=== PATIENT | female | born 1980 | race Caucasian/White ===

== ENCOUNTER 2020-08-21 20:02 | Emergency (ER) | payer MEDICAID, SELFPAY ==
--- NOTE | ~2020-08-21 | CT_ITS ---
EXAMINATION: CT ABDOMEN AND PELVIS WITH CONTRAST CLINICAL INFORMATION: Abdominal pain. Elevated liver enzymes. COMPARISON: None TECHNIQUE: Multidetector volumetric images were obtained from the superior aspect of the liver through the pubic symphysis following administration 85 mL of Omnipaque 350 intravenous contrast. Sagittal and coronal reformatted images were obtained on the technologist's workstation. Oral contrast: No This CT examination was performed using dose optimization techniques as appropriate, variously including the following: *Automated exposure control *Adjustment of mA and/or kV according to patient size (this includes techniques or standardized protocols for targeted exams where dose is matched to indication/reason for exam; i.e. extremities or head) *Use of iterative reconstruction technique DLP: 467 mGy-cm FINDINGS: LUNG BASES: The visualized lung bases are unremarkable. LIVER, GALLBLADDER, AND BILIARY TREE: The liver is normal in size, shape, and attenuation. No focal hepatic lesion or biliary ductal dilatation is present. Multiple small calcified gallstones are present in the gallbladder at the fundus. Focal wall thickening at the fundus may be due to hyperplastic cholecystosis. No surrounding fat stranding. No common bile duct dilatation. PANCREAS: Unremarkable. SPLEEN: Unremarkable. ADRENAL GLANDS: Unremarkable. KIDNEYS AND URETERS: Multiple bilateral renal calculi are noted. The largest of these is a permanent or calculus in a lower calyx in the right lower renal pole with a density of 1075 Hounsfield units, situated 8 cm deep to skin surface at the right posterior mid axillary line. Smaller calculi in the right kidney measure 4 and 2 mm in diameter. The largest calculus in the left kidney is situated in the upper pole calyx, measures 4 mm in diameter and is located 5.5 cm deep to the skin surface of the left posterior mid axillary line. A 2 mm calculus is present within the lower pole calyx. There is a 1 cm water density (12 Hounsfield unit) cyst within the lower pole the left kidney. A smaller 8 mm cyst in the lower pole is too small to characterize, though likely Bosniak type I cyst. No suspicious renal lesions. Kidneys normal in size, contour, and cortical thickness with symmetric enhancement. No hydronephrosis. No ureteral calculi. BLADDER: There is generalized bladder wall thickening measuring up to 8 mm in diameter. No surrounding soft tissue fat stranding. Bladder is partially filled. GASTROINTESTINAL TRACT: Stomach, small bowel, and colon are normal in caliber. No bowel wall thickening or surrounding inflammatory changes. Appendix is normal. No intraperitoneal free fluid or free air. ABDOMINAL WALL: Tiny fat-containing umbilical hernia. No bowel involvement. LYMPH NODES: Normal. VASCULAR: Unremarkable. PELVIC VISCERA: Uterus is normal in size. No adnexal lesions. OSSEOUS STRUCTURES: No acute fracture or malalignment. No acute osseous lesion. CT/CT abdomen pelvis w con IMPRESSION: 1. Cholelithiasis. Focal wall thickening at the fundus of the gallbladder may be due to hyperplastic cholecystosis. No significant surrounding fat stranding to indicate acute cholecystitis. Consider correlation with abdominal ultrasound if there is a high clinical concern for cholecystitis. 2. Bilateral nonobstructing nephrolithiasis. No evidence of obstructive uropathy. 3. Nonspecific bladder wall thickening may be due to infectious or inflammatory cystitis. Recommend correlation with urinalysis. 4. Two small Bosniak type I renal cysts. No follow-up is necessary.
[2020-08-21 20:05] VITALS: BP 160/100; PULSE 98; RESP 16; TEMP 36.8; O2SAT 100; BMI 27.3
--- NOTE | 2020-08-21 20:34 | ED_ITS ---
HPI - Abdominal Pain General Chief Complaint: Abdominal Pain <KETTY Huff - Last Filed: 08/21/20 21:09> Stated Complaint: Abdominal pain/back pain <KETTY Huff - Last Filed: 08/21/20 21:09> Time Seen by Provider: 08/21/20 20:20 <KETTY Huff - Last Filed: 08/21/20 21:09> Source: patient <KETTY Huff - Last Filed: 08/21/20 21:09> Mode of arrival: ambulatory <KETTY Huff - Last Filed: 08/21/20 21:09> Limitations: no limitations <KETTY Huff Last Filed: 08/21/20 21:09> History of Present Illness HPI narrative: 39 y/o female with no medical history presents to the ED with acute onset of 8/10 squeezing, sharp epigastric pain that radiates to her back that started at 5pm today. She states she had similar episodes of this type of pain last month, went to [facility] ER and the wait was so long she ended up leaving. Pain at that time was after she ate a clarke cheeseburger. Today the pain started while she was sitting down and she had not eaten anything prior. She denies associated nausea, vomiting, diarrhea, constipation, dysuria, hematuria, chest pain, SOB or fever. <KETTY Huff - Last Filed: 08/21/20 21:09> MD elicited complaint: abdominal pain <KETTY Huff - Last Filed: 08/21/20 21:09> Onset (ago): hour(s) (4) <KETTY Huff - Last Filed: 08/21/20 21:09> Pain Consistency: constant <KETTY Huff Last Filed: 08/21/20 21:09> Location: epigastric <KETTY Huff Last Filed: 08/21/20 21:09> Severity: severe <KETTY Huff Last Filed: 08/21/20 21:09> Pain scale (0-10): 8 <KETTY Huff Last Filed: 08/21/20 21:09> Quality: sharp and other (squeezing) <KETTY Huff Last Filed: 08/21/20 21:09> Radiation: back <KETTY Huff Last Filed: 08/21/20 21:09> Exacerbating factors: nothing <KETTY Huff Last Filed: 08/21/20 21:09> Relieving factors: nothing <KETTY Huff Last Filed: 08/21/20 21:09> Context: history of similar episodes <KETTY Huff Last Filed: 08/21/20 21:09> Associated symptoms: denies other symptoms <KETTY Huff Last Filed: 08/21/20 21:09> Related Data Allergies/Adverse Reactions: Allergies Allergy/AdvReac Type Severity Reaction Status Date / Time Penicillins [PENICILLINS] Allergy Unknown UNKNOWN Unverified 08/21/20 20:11 <KETTY Huff Last Filed: 08/21/20 21:09> Review of Systems Review of Systems Constitutional: No Fever, No Chills ENT/Mouth: No sore throat, No Swallowing Difficulty Cardiovascular: No Chest Pain, No SOB, No Orthopnea, No Edema Respiratory: No Cough, No Sputum, No Wheezing, No dyspnea Gastrointestinal: No Nausea, No Vomiting, No Diarrhea, + abdominal Pain Genitourinary: No Dysuria, No Urinary Frequency, No Hematuria Musculoskeletal: No joint pain, No Myalgias Skin: No Skin Lesions, No rash Neuro: No Weakness, No Numbness, No Dizziness, No Headache Psych: No Anxiety/Panic, No Depression Heme/Lymph: No Bruising, No Lymphadenopathy Endocrine: No Polyuria, No Polydipsia <KETTY Huff Last Filed: 08/21/20 21:09> Physical Exam Vital Signs: Vital Signs: Last Vital Signs Temp 98.3 F 08/21/20 20:05 Pulse 98 08/21/20 20:05 Resp 16 08/21/20 20:05 BP 160/100 H 08/21/20 20:05 Pulse Ox 100 08/21/20 20:05 Body Mass Index 27.3 Appearance: Alert. Oriented X3. Pacing in the room, appears uncomfortable. Eyes: Pupils equal, round and reactive to light. ENT: Pharynx normal. Neck: Normal inspection. Neck supple. CVS: Normal heart rate and rhythm. Pulses normal. Respiratory: No respiratory distress. Breath sounds normal. Abdomen: flat, soft, +epigastric tenderness, RUQ tenderness w/ guarding. +BS x4. bilateral CVA tenderness Skin: Skin warm and dry. Normal skin color. Normal skin turgor. No rashes. Extremities: No lower extremity edema. Neuro: Oriented X 3. No motor deficit. No sensory deficit. Steady gait. Speaks in full sentences. <KETTY Huff - Last Filed: 08/21/20 21:09> Vital Signs: Last Vital Signs Temp 98.3 F 08/21/20 20:05 Pulse 98 08/21/20 20:05 Resp 16 08/21/20 20:05 BP 160/100 H 08/21/20 20:05 Pulse Ox 100 08/21/20 20:05 Body Mass Index 27.3 <Candelaria Reich [employer]ING [employer]ER-[employer] - Last Filed: 08/21/20 23:48> Course Course Course Narrative: 39 y/o female with no significant medical history presenting with acute onset of epigastric pain that radiates to her back. She appears uncomfortable. BP elevated on arrival 160/100. Could be due to pain. Concern for possible saenz creatitis vs biliary colic vs cholecystits. Denies burning sensation, doubt GERD or gastritis. She has CVA tenderness but no urinary symptoms, doubt kidney stones or pyelonephritis. She is a smoker but does not have any other risk factors for aortic dissection. She has equal femoral pulses. Will start with lab workup, including LFTs, lipase, CBC and chemistry. Based on results will decide whether to CT vs RUQ/US. IV morphine and IVF ordered. Will reassess. Signed out to Esthela SANTOS who will assume care. Labs needed to be redrawn due to hemolysis. <KETTY Huff - Last Filed: 08/21/20 21:09> Patient re-examined by me at the bedside. She denies any pain or discomfort at this time. Patient reports to me that she had alcoholic beverages last night. CT scan back and shows cholelithiasis. Focal wall thickening at the fundus of the gallbladder may be due to hyperplastic cholecystolithiasis. No significant surrounding fat stranding to indicate acute cholecystitis. Recommendation by radiology is to consider correlation with abdominal ultrasound. Bilateral nonobstructing nephrolithiasis. No evidence of obstr uctive uropathy. Nonspecific bladder wall thickening may be due to infectious or inflammatory cystitis. Two small Bosniak type 1 renal cyst. Urinalysis shows trace blood with trace leukocytes, negative for nitrates. Patient might have gastritis aggravated by food or alcohol intake. Pain possible to biliary colic. I will have patient follow-up with her PCP. Sent her home with PPI. Patient should follow-up with GI to investigate further her elevated liver enzymes. <Candelaria Reich, [employer]ER[employer] - Last Filed: 08/21/20 23:48> MDM - Abdominal Pain MDM Narrative Medical decision making narrative: FINDINGS: LUNG BASES: The visualized lung bases are unremarkable. LIVER, GALLBLADDER, AND BILIARY TREE: The liver is normal in size, shape, and attenuation. No focal hepatic lesion or biliary ductal dilatation is present. Multiple small calcified gallstones are present in the gallbladder at the fundus. Focal wall thickening at the fundus may be due to hyperplastic cholecystosis. No surrounding fat stranding. No common bile duct dilatation. PANCREAS: Unremarkable. SPLEEN: Unremarkable. ADRENAL GLANDS: Unremarkable. KIDNEYS AND URETERS: Multiple bilateral renal calculi are noted. The largest of these is a permanent or calculus in a lower calyx in the right lower renal pole with a density of 1075 Hounsfield units, situated 8 cm deep to skin surface at the right posterior mid axillary line. Smaller calculi in the right kidney measure 4 and 2 mm in diameter. The largest calculus in the left kidney is situated in the upper pole calyx, measures 4 mm in diameter and is located 5.5 cm deep to the skin surface of the left posterior mid axillary line. A 2 mm calculus is present within the lower pole calyx. There is a 1 cm water density (12 Hounsfield unit) cyst within the lower pole the left kidney. A smaller 8 mm cyst in the lower pole is too small to characterize, though likely Bosniak type I cyst. No suspicious renal lesions. Kidneys normal in size, contour, and cortical thickness with symmetric enhancement. No hydronephrosis. No ureteral calculi. BLADDER: There is generalized bladder wall thickening measuring up to 8 mm in diameter. No surrounding soft tissue fat stranding. Bladder is partially filled. GASTROINTESTINAL TRACT: Stomach, small bowel, and colon are normal in caliber. No bowel wall thickening or surrounding inflammatory changes. Appendix is normal. No intraperitoneal free fluid or free air. ABDOMINAL WALL: Tiny fat-containing umbilical hernia. No bowel involvement. LYMPH NODES: Normal. VASCULAR: Unremarkable. PELVIC VISCERA: Uterus is normal in size. No adnexal lesions. OSSEOUS STRUCTURES: No acute fracture or malalignment. No acute osseous lesion. CT/CT abdomen pelvis w con <MAYANK Zhou - Last Filed: 08/21/20 23:48> Lab Data Result diagrams: : 08/21/20 20:31 08/21/20 21:19 <KETTY Huff - Last Filed: 08/21/20 21:09> Labs: Lab Results 08/21/20 08/21/20 08/21/20 Range/Units 20:31 20:31 21:19 WBC 13.3 H (4.8-10.8) X10*3/uL RBC 4.84 (4.20-5.50) X10*6/uL Hgb 15.1 (12.0-16.0) g/dl Hct 44.2 (37-47) % MCV 91.3 (80-98) fL MCH 31.2 (27.0-33.0) pg MCHC 34.2 (31.0-35.0) g/dl RDW 12.2 (11.0-16.0) % Plt Count 271 (160-400) X10*3/uL MPV 9.0 L (9.4-12.3) fL Immature Gran % (Auto) 0.5 H (0.0-0.4) % Neut % (Auto) 74.8 H (45-73) % Lymph % (Auto) 18.5 L (20-40) % Cla[place]orne % (Auto) 5.1 (2-11) % Eos % (Auto) 0.7 (0-4) % Baso % (Auto) 0.4 (0-2) % Lymph # (Auto) 2.5 (1.2-4.9) X10*3/uL [place]orne # (Auto) 0.7 (0.1-1.2) X10*3/uL Eos # (Auto) 0.1 (0.0-0.4) X10*3/uL Baso # (Auto) 0.1 (0.0-0.2) X10*3/uL Abs Immat Gran (auto) 0.06 H (0.00-0.03) X10*3/uL Absolute Neuts (auto) 9.9 H (2.0-8.3) X10*3/uL Absolute Nucleated RBC 0.000 (0.0-0.012) X10*3/uL Nucleated RBC % (auto) 0.0 (0.0-0.2) /100WBC Hold Blue Top SEE NOTE Sodium (135-145) mmol/L Potassium (3.3-5.1) mmol/L Chloride (96-108) mmol/L Carbon Dioxide (22-29) mmol/L Anion Gap (12-20) BUN (9-16) mg/dL Creatinine (0.5-1.4) mg/dL Estim Creat Clear Calc Estimated GFR Random Glucose (60-115) mg/dL Calcium (8.4-10.2) mg/dL Magnesium (1.6-2.6) mg/dL Total Bilirubin (0.0-1.0) mg/dL Direct Bilirubin (0.0-0.5) mg/dL AST (5-31) U/L ALT (0-31) U/L Alkaline Phosphatase (39-117) U/L Total Protein (6.5-8.0) g/dL Albumin (3.5-5.0) g/dL Lipase (8-78) U/L Urine Color YELLOW Urine Appearance HAZY Urine pH 6.5 (5.0-8.0) Ur Specific Dawson 1.020 (1.005-1.025) Urine Protein NEG (NEG-TRACE) MG/DL Urine Glucose (UA) NEG (NEG) MG/DL Urine Ketones NEG (NEG) MG/DL Urine Blood 1+ H (NEG) Urine Nitrite NEG (NEG) Ur Leukocyte Esterase TRACE H (NEG) Urine RBC 1-4 (0) /HPF Urine WBC 5-9 H (0-4) /HPF Ur Squamous Epith Cells TRACE /LPF Amorphous Sediment TRACE /LPF Urine Bacteria TRACE /LPF Granular Casts 0-2 /LPF Urine Mucus TRACE /LPF Ur Oval Fat Bodies NOTED (NONE) Urine Test (NEGATIVE) 08/21/20 08/21/20 Range/Units 21:19 21:19 WBC (4.8-10.8) X10*3/uL RBC (4.20-5.50) X10*6/uL Hgb (12.0-16.0) g/dl Hct (37-47) % MCV (80-98) fL MCH (27.0-33.0) pg MCHC (31.0-35.0) g/dl RDW (11.0-16.0) % Plt Count (160-400) X10*3/uL MPV (9.4-12.3) fL Immature Gran % (Auto) (0.0-0.4) % Neut % (Auto) (45-73) % Lymph % (Auto) (20-40) % Claiborne % (Auto) (2-11) % Eos % (Auto) (0-4) % Baso % (Auto) (0-2) % Lymph # (Auto) (1.2-4.9) X10*3/uL Claiborne # (Auto) (0.1-1.2) X10*3/uL Eos # (Auto) (0.0-0.4) X10*3/uL Baso # (Auto) (0.0-0.2) X10*3/uL Abs Immat Gran (auto) (0.00-0.03) X10*3/uL Absolute Neuts (auto) (2.0-8.3) X10*3/uL Absolute Nucleated RBC (0.0-0.012) X10*3/uL Nucleated RBC % (auto) (0.0-0.2) /100WBC Hold Blue Top Sodium 138 (135-145) mmol/L Potassium 3.5 (3.3-5.1) mmol/L Chloride 103 (96-108) mmol/L Carbon Dioxide 26 (22-29) mmol/L Anion Gap 13 (12-20) BUN 14 (9-16) mg/dL Creatinine 0.79 (0.5-1.4) mg/dL Estim Creat Clear Calc 88.7 Estimated GFR > 60 Random Glucose 131 H (60-115) mg/dL Calcium 9.0 (8.4-10.2) mg/dL Magnesium 1.9 (1.6-2.6) mg/dL Total Bilirubin 0.6 (0.0-1.0) mg/dL Direct Bilirubin 0.4 (0.0-0.5) mg/dL AST 138 H (5-31) U/L ALT 71 H (0-31) U/L Alkaline Phosphatase 93 (39-117) U/L Total Protein 7.2 (6.5-8.0) g/dL Albumin 4.2 (3.5-5.0) g/dL Lipase 10 (8-78) U/L Urine Color Urine Appearance Urine pH (5.0-8.0) Ur Specific Dawson (1.005-1.025) Urine Protein (NEG-TRACE) MG/DL Urine Glucose (UA) (NEG) MG/DL Urine Ketones (NEG) MG/DL Urine Blood (NEG) Urine Nitrite (NEG) Ur Leukocyte Esterase (NEG) Urine RBC (0) /HPF Urine WBC (0-4) /HPF Ur Squamous Epith Cells /LPF Amorphous Sediment /LPF Urine Bacteria /LPF Granular Casts /LPF Urine Mucus /LPF Ur Oval Fat Bodies (NONE) Urine Test NEGATIVE (NEGATIVE) <KETTY Huff - Last Filed: 08/21/20 21:09> Lab Results 08/21/20 08/21/20 08/21/20 Range/Units 20:31 20:31 21:19 WBC 13.3 H (4.8-10.8) X10*3/uL RBC 4.84 (4.20-5.50) X10*6/uL Hgb 15.1 (12.0-16.0) g/dl Hct 44.2 (37-47) % MCV 91.3 (80-98) fL MCH 31.2 (27.0-33.0) pg MCHC 34.2 (31.0-35.0) g/dl RDW 12.2 (11.0-16.0) % Plt Count 271 (160-400) X10*3/uL MPV 9.0 L (9.4-12.3) fL Immature Gran % (Auto) 0.5 H (0.0-0.4) % Neut % (Auto) 74.8 H (45-73) % Lymph % (Auto) 18.5 L (20-40) % Claiborne % (Auto) 5.1 (2-11) % Eos % (Auto) 0.7 (0-4) % Baso % (Auto) 0.4 (0-2) % Lymph # (Auto) 2.5 (1.2-4.9) X10*3/uL [place]orne # (Auto) 0.7 (0.1-1.2) X10*3/uL Eos # (Auto) 0.1 (0.0-0.4) X10*3/uL Baso # (Auto) 0.1 (0.0-0.2) X10*3/uL Abs Immat Gran (auto) 0.06 H (0.00-0.03) X10*3/uL Absolute Neuts (auto) 9.9 H (2.0-8.3) X10*3/uL Absolute Nucleated RBC 0.000 (0.0-0.012) X10*3/uL Nucleated RBC % (auto) 0.0 (0.0-0.2) /100WBC Hold Blue Top SEE NOTE Sodium (135-145) mmol/L Potassium (3.3-5.1) mmol/L Chloride (96-108) mmol/L Carbon Dioxide (22-29) mmol/L Anion Gap (12-20) BUN (9-16) mg/dL Creatinine (0.5-1.4) mg/dL Estim Creat Clear Calc Estimated GFR Random Glucose (60-115) mg/dL Calcium (8.4-10.2) mg/dL Magnesium (1.6-2.6) mg/dL Total Bilirubin (0.0-1.0) mg/dL Direct Bilirubin (0.0-0.5) mg/dL AST (5-31) U/L ALT (0-31) U/L Alkaline Phosphatase (39-117) U/L Total Protein (6.5-8.0) g/dL Albumin (3.5-5.0) g/dL Lipase (8-78) U/L Urine Color YELLOW Urine Appearance HAZY Urine pH 6.5 (5.0-8.0) Ur Specific Dawson 1.020 (1.005-1.025) Urine Protein NEG (NEG-TRACE) MG/DL Urine Glucose (UA) NEG (NEG) MG/DL Urine Ketones NEG (NEG) MG/DL Urine Blood 1+ H (NEG) Urine Nitrite NEG (NEG) Ur Leukocyte Esterase TRACE H (NEG) Urine RBC 1-4 (0) /HPF Urine WBC 5-9 H (0-4) /HPF Ur Squamous Epith Cells TRACE /LPF Amorphous Sediment TRACE /LPF Urine Bacteria TRACE /LPF Granular Casts 0-2 /LPF Urine Mucus TRACE /LPF Ur Oval Fat Bodies NOTED (NONE) Urine Test (NEGATIVE) 08/21/20 08/21/20 Range/Units 21:19 21:19 WBC (4.8-10.8) X10*3/uL RBC (4.20-5.50) X10*6/uL Hgb (12.0-16.0) g/dl Hct (37-47) % MCV (80-98) fL MCH (27.0-33.0) pg MCHC (31.0-35.0) g/dl RDW (11.0-16.0) % Plt Count (160-400) X10*3/uL MPV (9.4-12.3) fL Immature Gran % (Auto) (0.0-0.4) % Neut % (Auto) (45-73) % Lymph % (Auto) (20-40) % Cla[place]orne % (Auto) (2-11) % Eos % (Auto) (0-4) % Baso % (Auto) (0-2) % Lymph # (Auto) (1.2-4.9) X10*3/uL [place] # (Auto) (0.1-1.2) X10*3/uL Eos # (Auto) (0.0-0.4) X10*3/uL Baso # (Auto) (0.0-0.2) X10*3/uL Abs Immat Gran (auto) (0.00-0.03) X10*3/uL Absolute Neuts (auto) (2.0-8.3) X10*3/uL Absolute Nucleated RBC (0.0-0.012) X10*3/uL Nucleated RBC % (auto) (0.0-0.2) /100WBC Hold Blue Top Sodium 138 (135-145) mmol/L Potassium 3.5 (3.3-5.1) mmol/L Chloride 103 (96-108) mmol/L Carbon Dioxide 26 (22-29) mmol/L Anion Gap 13 (12-20) BUN 14 (9-16) mg/dL Creatinine 0.79 (0.5-1.4) mg/dL Estim Creat Clear Calc 88.7 Estimated GFR > 60 Random Glucose 131 H (60-115) mg/dL Calcium 9.0 (8.4-10.2) mg/dL Magnesium 1.9 (1.6-2.6) mg/dL Total Bilirubin 0.6 (0.0-1.0) mg/dL Direct Bilirubin 0.4 (0.0-0.5) mg/dL AST 138 H (5-31) U/L ALT 71 H (0-31) U/L Alkaline Phosphatase 93 (39-117) U/L Total Protein 7.2 (6.5-8.0) g/dL Albumin 4.2 (3.5-5.0) g/dL Lipase 10 (8-78) U/L Urine Color Urine Appearance Urine pH (5.0-8.0) Ur Specific Dawson (1.005-1.025) Urine Protein (NEG-TRACE) MG/DL Urine Glucose (UA) (NEG) MG/DL Urine Ketones (NEG) MG/DL Urine Blood (NEG) Urine Nitrite (NEG) Ur Leukocyte Esterase (NEG) Urine RBC (0) /HPF Urine WBC (0-4) /HPF Ur Squamous Epith Cells /LPF Amorphous Sediment /LPF Urine Bacteria /LPF Granular Casts /LPF Urine Mucus /LPF Ur Oval Fat Bodies (NONE) Urine Test NEGATIVE (NEGATIVE) <Candelaria Reich, [employer]ING INST[employer]ER- - Last Filed: 08/21/20 23:48> [facility]LY [facility] Past Medical History Attestation statement: The following information was validated with the patient. <KETTY Carrillo - Last Filed: 08/21/20 21:09> Medical History: Medical History (Updated 08/21/20 @ 20:09 by Landy Whitehead) No known health problems <KETTY Huff - Last Filed: 08/21/20 21:09> Social History Social History: Social History Advance Directives: No Advance Directives Information Provided: No <KETTY Huff - Last Filed: 08/21/20 21:09>
[2020-08-21 20:40] LABS: MANUAL DIFF FLAG NO
[2020-08-21] MEDS: Morphine Sulfate 4 MG/ML CARTRIDGE IVPUSH (20:40)
[2020-08-21] MEDS: 0.9 % Sodium Chloride 1,000 ML 999 ML IVCONT (20:41)
[2020-08-21 20:42] LABS: Basophils Absolute Auto 0.1 X10*3/uL (0.0-0.2); Basophils Percent Auto 0.4 % (0-2); Eosinophils Absolute Auto 0.1 X10*3/uL (0.0-0.4); Eosinophils Percent Auto 0.7 % (0-4); Hematocrit 44.2 % (37-47); Hemoglobin 15.1 g/dl (12.0-16.0); Imm Gran Abs Auto 0.06 X10*3/uL (0.00-0.03); Imm Gran Pct Auto 0.5 % (0.0-0.4); Lymphocytes Absolute Auto 2.5 X10*3/uL (1.2-4.9); Lymphocytes Percent Auto 18.5 % (20-40); Mean Corpuscular HGB Conc 34.2 g/dl (31.0-35.0); Mean Corpuscular Hemoglobin 31.2 pg (27.0-33.0); Mean Corpuscular Volume 91.3 fL (80-98); Monocytes Absolute Auto 0.7 X10*3/uL (0.1-1.2); Monocytes Percent Auto 5.1 % (2-11); Neutrophils Absolute Auto 9.9 X10*3/uL (2.0-8.3); Neutrophils Percent Auto 74.8 % (45-73); Platelet Count 271 X10*3/uL (160-400); Red Blood Count 4.84 X10*6/uL (4.20-5.50); Red Cell Distribution Width 12.2 % (11.0-16.0); White Blood Count 13.3 X10*3/uL (4.8-10.8)
[2020-08-21 21:50] LABS: Glucose Urine UA NEG (NEG); Leukocyte Esterase Urine TRACE (NEG); Nitrite Urine NEG (NEG); PH 6.5 (5.0-8.0); UACC Culture Trigger YES; Urine Blood 1+ (NEG); Urine Ketones NEG (NEG); Urine Protein NEG (NEG-TRACE)
[2020-08-21 21:52] LABS: Appearance Urine HAZY; Color Urine YELLOW
[2020-08-21 21:53] LABS: UPreg QC Valid YES; Urine Pregnancy NEGATIVE (NEGATIVE)
[2020-08-21 22:00] LABS: Alanine Aminotransferase 71 U/L (0-31); Albumin Level 4.2 g/dL (3.5-5.0); Alkaline Phosphatase 93 U/L (39-117); Anion Gap 13 (12-20); Aspartate Amino Transferase 138 U/L (5-31); Bilirubin Direct 0.4 mg/dL (0.0-0.5); Bilirubin Total 0.6 mg/dL (0.0-1.0); Blood Urea Nitrogen 14 mg/dL (9-16); Carbon Dioxide 26 mmol/L (22-29); Chloride 103 mmol/L (96-108); Creatinine Clr Calc Pharmacy 88.7; Estimated Glomerular Filt Rate > 60; Glucose Random 131 mg/dL (60-115); Lipase 10 U/L (8-78); Magnesium 1.9 mg/dL (1.6-2.6); Potassium 3.5 mmol/L (3.3-5.1); Sodium 138 mmol/L (135-145); Total Protein 7.2 g/dL (6.5-8.0)
[2020-08-21 22:10] LABS: Amorphous Sediment Urine TRACE /LPF; Bacteria Urine TRACE /LPF; Granular Casts Urine 0-2 /LPF; Mucus Urine TRACE /LPF; Oval Fat Bodies Urine NOTED; Squamous Epithelial Cell Urine TRACE /LPF; UACC CULT YES
[2020-08-21] MEDS: iohexoL 350 MG/ML 100 ML INFUS..BTL IV (22:39)
== END 2020-08-22 00:21 | disposition home or self-care (01) ==
PROVIDERS: Physician Assistant; Emergency Provider Emergency Medicine Emergency Medical Services; PCP Internal Medicine Geriatric Medicine
DX: R10.13 Epigastric pain (principal); K80.20 Calculus of gallbladder without cholecystitis without obstruction; N20.0 Calculus of kidney; Q61.02 Congenital multiple renal cysts; K42.9 Umbilical hernia without obstruction or gangrene; F17.210 Nicotine dependence, cigarettes, uncomplicated
CPT/HCPCS: 36415; 74177; 80048; 80076; 81001; 81025; 83690; 83735; 85025; 87086; 96361; 96374; 99284; J2270; Q9967

== ENCOUNTER 2020-08-24 13:12 | Inpatient (IN) | payer MEDICAID, SELFPAY ==
--- NOTE | ~2020-08-24 | MR_ITS ---
EXAMINATION: MR MRCP. CLINICAL INFORMATION: Gallstones with positive sonographic Hawthorne's sign. COMPARISON: Ultrasound abdomen limited 08/24/2020 TECHNIQUE: MR abdomen is performed without gadolinium contrast. MRCP FINDINGS: The liver is homogeneous in signal intensity without any focal lesion, enlargement or intrahepatic ductal dilatation. The gallbladder is contracted with small intraluminal filling defect. The spleen is normal normal size, shape and echo intensity. No focal lesions seen. Bilateral adrenal glands and the kidneys are unremarkable except for a small 6 mm cyst lower pole left kidney.. On MRCP there is good opacification of the entire, bile duct and right and left hepatic ducts. There is no intraluminal filling defects seen within the common bile duct. Mild narrowing of left distal left hepatic ducts with common hepatic duct is suspected. There is no free fluid seen. MR/MR MRCP IMPRESSION: Gallstones. Nondilated CBD with no intraluminal filling defect seen. Small cyst lower pole left kidney. Results were discussed in person with Dr. Alcantara at 10:30 AM.
--- NOTE | ~2020-08-24 | US_ITS ---
EXAMINATION: US ABDOMEN LIMITED CLINICAL INFORMATION: Right upper quadrant pain. COMPARISON: CT abdomen pelvis August 21, 2020 TECHNIQUE: Real-time imaging of the right upper quadrant abdominal viscera. FINDINGS: PANCREAS: Normal. LIVER: Normal. The liver is normal in size. The liver contour is normal. Parenchymal echogenicity is normal. No focal hepatic lesion. There is no intrahepatic biliary duct dilatation seen. GALLBLADDER: The gallbladder is physiologically distended. Gallstones are present. There is no gallbladder wall thickening or pericholecystic fluid appreciated. Sonographic Hawthorne's sign is positive. COMMON BILE DUCT: 1.2 cm in diameter. RIGHT KIDNEY: The kidney measures 11.3 cm in maximum dimension. Several subcentimeter nonobstructing renal calculi are present. There is no hydronephrosis. FREE FLUID: None. US/US abdomen limited IMPRESSION: Gallstones are noted with an otherwise normal-appearing gallbladder, however, a sonographic Hawthorne's sign was elicited. Additionally, the common bile duct is dilated. Although no stone is visualized within the common bile duct, choledocholithiasis is within the differential. Further evaluation can be obtained with HIDA imaging versus MRI/MRCP as clinically indicated.
[2020-08-24 13:18] VITALS: BP 148/99; PULSE 68; RESP 18; TEMP 37.2; O2SAT 100; BMI 26.5
[2020-08-24 17:04] LABS: MANUAL DIFF FLAG NO
[2020-08-24 17:11] LABS: Basophils Absolute Auto 0.1 X10*3/uL (0.0-0.2); Basophils Percent Auto 0.5 % (0-2); Eosinophils Absolute Auto 0.1 X10*3/uL (0.0-0.4); Eosinophils Percent Auto 0.6 % (0-4); Hematocrit 45.1 % (37-47); Hemoglobin 15.1 g/dl (12.0-16.0); Imm Gran Abs Auto 0.06 X10*3/uL (0.00-0.03); Imm Gran Pct Auto 0.6 % (0.0-0.4); Lymphocytes Absolute Auto 1.6 X10*3/uL (1.2-4.9); Lymphocytes Percent Auto 16.3 % (20-40); Mean Corpuscular HGB Conc 33.5 g/dl (31.0-35.0); Mean Corpuscular Hemoglobin 30.8 pg (27.0-33.0); Mean Corpuscular Volume 91.9 fL (80-98); Mean Platelet Volume 9.1 fL (9.4-12.3); Monocytes Absolute Auto 0.4 X10*3/uL (0.1-1.2); Monocytes Percent Auto 4.3 % (2-11); Neutrophils Absolute Auto 7.5 X10*3/uL (2.0-8.3); Neutrophils Percent Auto 77.7 % (45-73); Platelet Count 252 X10*3/uL (160-400); Red Blood Count 4.91 X10*6/uL (4.20-5.50); White Blood Count 9.7 X10*3/uL (4.8-10.8)
[2020-08-24 17:57] LABS: Alanine Aminotransferase 702 U/L (0-31); Albumin Level 4.9 g/dL (3.5-5.0); Alkaline Phosphatase 209 U/L (39-117); Anion Gap 16 (12-20); Aspartate Amino Transferase 383 U/L (5-31); Bilirubin Direct 2.4 mg/dL (0.0-0.5); Bilirubin Total 3.7 mg/dL (0.0-1.0); Blood Urea Nitrogen 10 mg/dL (9-16); Carbon Dioxide 25 mmol/L (22-29); Chloride 100 mmol/L (96-108); Creatinine Clr Calc Pharmacy 87.6; Estimated Glomerular Filt Rate > 60; Glucose Random 130 mg/dL (60-115); Lipase 15 U/L (8-78); Magnesium 2.2 mg/dL (1.6-2.6); Potassium 4.3 mmol/L (3.3-5.1); Sodium 137 mmol/L (135-145); Total Protein 8.4 g/dL (6.5-8.0)
--- NOTE | 2020-08-24 18:24 | ED.ABDPAIN ---
HPI - Abdominal Pain General Chief Complaint: Abdominal Pain Stated Complaint: abd pain Time Seen by Provider: 08/24/20 13:22 Source: patient Mode of arrival: ambulatory Limitations: no limitations History of Present Illness HPI narrative: Patient presents to ED for abdominal pain for the past 3 days. Patient was seen here 3 days ago and now states abdominal pain has worsened. Patient states also nausea and vomiting. Patient states no fever or chills. Patient states epigastric pain MD elicited complaint: abdominal pain Related Data Previous Rx's Medication Instructions Recorded omeprazole 20 mg PO DAILY #20 cap 08/22/20 Allergies Allergy/AdvReac Type Severity Reaction Status Date / Time Penicillins [PENICILLINS] Allergy Unknown UNKNOWN Unverified 08/21/20 20:11 Review of Systems Review of Systems Yes all other systems are reviewed and are negative Constitutional: Reports as per HPI and Reports no additional constitutional complaints Eyes: Reports as per HPI and Reports no additional eye complaints Reports system reviewed and no additional complaints, except as documented and Reports as per HPI Cardiovascular: Reports as per HPI and Reports no additional cardiovascular complaints Respiratory: Reports as per HPI and Reports no additional respiratory complaints Gastrointestinal: Reports as per HPI, Reports no additional gastrointestinal complaints, Reports abdominal pain, Reports nausea and Reports vomiting Musculoskeletal: Reports no additional musculoskeletal complaints and Reports as per HPI Reports system reviewed and no additional complaints, except as documented and Reports as per HPI Psychiatric: Reports no additional psychiatric complaints and Reports as per HPI Physical Exam Vital Signs: Vital Signs: Last Vital Signs Temp 99.1 F 08/24/20 19:29 Pulse 65 08/24/20 19:29 Resp 16 08/24/20 19:29 BP 137/83 08/24/20 19:29 Pulse Ox 100 08/24/20 19:29 Body Mass Index 26.5 Const: General: cooperative, healthy appearing and acute distress Orientation/consciousness: patient oriented x3 HENMT: Head: Yes normal to inspection, Yes No palpable skull fracture present, Yes normocephalic and Yes atraumatic Eyes: General: appearance normal, both eyes and all related structures Neck: Neck: Yes normal visual inspection, Yes full ROM, Yes no lymphadenopathy, Yes no meningeal signs, Yes trachea midline, Yes supple and No tender Chest: Chest palpation & inspection: normal inspection of the chest and normal palpation of entire chest wall Resp: Effort & Inspection: normal respiratory effort and able to speak in complete sentences Auscultation: clear to auscultation bilaterally Cardio: Jugular venous distension: no JVD Heart sounds: S1 normal heart sound present and S2 normal heart sound present GI: Inspection: Yes normal to inspection and No abdominal wall ecchymosis Palpation (GI): Tenderness to palpation present (GI) in the epigastrum and Hawthorne's sign positive, Guarding due to palpation present (GI) and Rigid due to palpation : General: No CVA tenderness and Yes no CVA tenderness Back/Spine/Pelvis: Back: no CVA tenderness, No CVA tenderness and No back tenderness Skin: General skin exam: no rashes or lesions noted and elasticity normal Neuro: General: patient oriented x3, no meningeal signs and CN's II-XI intact bilaterally Cranial nerves: Yes CN's II-XII intact bilaterally Extrem: General: Yes normal to inspection and Yes full ROM Psych: Appearance: grossly normal, well kempt and not disheveled Course Course Course Narrative: Patient will have labs and ultrasound done. Reevaluation(s) Reevaluation #1: Patient negative for elevated white blood cell count. Labs shown elevated LFTs and bilirubin. Ultrasound shows gallstones, but no cholecystitis. Ultrasound shows common bile duct dilatation. Will order pain meds and call surgeon on-call Mariann. Time: 19:00 Reevaluation #2: Spoke with Dr. Lacey of surgery who states presently no surgical intervention needed. She recommends calling Gastroenterology on-call. Spoke with Dr. Hardin of Gastroenterology she was informed of patient's history, physical exam, and diagnostics. She recommend patient be admitted for MRCP and also send hepatitis panel ( including Hep AIGM), SCOTT, and Tylenol level. Patient given morphine for pain Time: 20:09 MDM - Abdominal Pain MDM Narrative Medical decision making narrative: Bile duct obstruction Lab Data Result diagrams: 08/24/20 16:58 08/24/20 16:58 Labs: Lab Results 08/24/20 08/24/20 08/24/20 Range/Units 16:58 16:58 16:58 WBC 9.7 (4.8-10.8) X10*3/uL RBC 4.91 (4.20-5.50) X10*6/uL Hgb 15.1 (12.0-16.0) g/dl Hct 45.1 (37-47) % MCV 91.9 (80-98) fL MCH 30.8 (27.0-33.0) pg MCHC 33.5 (31.0-35.0) g/dl RDW 12.0 (11.0-16.0) % Plt Count 252 (160-400) X10*3/uL MPV 9.1 L (9.4-12.3) fL Immature Gran % (Auto) 0.6 H (0.0-0.4) % Neut % (Auto) 77.7 H (45-73) % Lymph % (Auto) 16.3 L (20-40) % [place] % (Auto) 4.3 (2-11) % Eos % (Auto) 0.6 (0-4) % Baso % (Auto) 0.5 (0-2) % Lymph # (Auto) 1.6 (1.2-4.9) X10*3/uL [place] # (Auto) 0.4 (0.1-1.2) X10*3/uL Eos # (Auto) 0.1 (0.0-0.4) X10*3/uL Baso # (Auto) 0.1 (0.0-0.2) X10*3/uL Abs Immat Gran (auto) 0.06 H (0.00-0.03) X10*3/uL Absolute Neuts (auto) 7.5 (2.0-8.3) X10*3/uL Absolute Nucleated RBC 0.000 (0.0-0.012) X10*3/uL Nucleated RBC % (auto) 0.0 (0.0-0.2) /100WBC Hold Blue Top SEE NOTE Sodium 137 (135-145) mmol/L Potassium 4.3 D (3.3-5.1) mmol/L Chloride 100 (96-108) mmol/L Carbon Dioxide 25 (22-29) mmol/L Anion Gap 16 (12-20) BUN 10 (9-16) mg/dL Creatinine 0.79 (0.5-1.4) mg/dL Estim Creat Clear Calc 87.6 Estimated GFR > 60 Random Glucose 130 H (60-115) mg/dL Calcium 10.0 D (8.4-10.2) mg/dL Magnesium 2.2 (1.6-2.6) mg/dL Total Bilirubin 3.7 H (0.0-1.0) mg/dL Direct Bilirubin 2.4 H (0.0-0.5) mg/dL AST 383 H (5-31) U/L ALT 702 H (0-31) U/L Alkaline Phosphatase 209 H D (39-117) U/L Total Protein 8.4 H (6.5-8.0) g/dL Albumin 4.9 (3.5-5.0) g/dL Lipase 15 (8-78) U/L Beta HCG, Quant < 2 mIU/mL Discharge Plan Discharge Clinical Impression: Common bile duct (CBD) obstruction Patient Disposition: Admitted As Inpatient [facility] Past Medical History Medical History (Updated 08/24/20 @ 20:10 by KETTY Roche) No known health problems Social History Social History Alcohol intake: current Alcohol intake frequency: holidays/special occasions only Smoking Status: Current every day smoker Smoked in Last 30 Days: Yes Use of substances other than those prescribed or required for medical reasons: No Advance Directives: No Advance Directives Information Provided: Yes
[2020-08-24 18:41] LABS: HCG Quantitative < 2 mIU/mL
[2020-08-24 19:29] VITALS: BP 137/83; PULSE 65; RESP 16; TEMP 37.3; O2SAT 100
[2020-08-24] MEDS: 0.9 % Sodium Chloride 1,000 ML 999 ML IV (20:29)
[2020-08-24] MEDS: ondansetron HCL 4 MG/2 ML VIAL IVPUSH (20:29)
[2020-08-24 20:32] VITALS: RESP 16
[2020-08-24] MEDS: Morphine Sulfate 4 MG/ML CARTRIDGE IVPUSH (20:32)
[2020-08-24 21:03] LABS: COVID-19 Test Negative (Negative)
[2020-08-24 21:09] LABS: Amphetamine Screen Urine Not Detected (Not Detect); Barbiturates, Urine Not Detected (Not Detect); Benzodiazepines Screen Urine Not Detected (Not Detect); Cannabinoid Screen Urine POSITIVE (Not Detect); Cocaine Screen Urine Not Detected (Not Detect); Opiate Screen Urine Not Detected (Not Detect); Phencyclidine Screen Urine Not Detected (Not Detect)
--- NOTE | 2020-08-24 21:21 | P.HPHOSP_ITS ---
History of Present Illness Date of Service: 08/24/20 Chief Complaint: Epigastric pain 39-year-old female with no significant past medical history presented to the hospital with a chief complaint of epigastric pain going on for the past few days. Patient mentioned that she has been having intermittent abdominal pain for some time but over the past 3 days she has been having increased pain. Worsens after eating. Mention she came to the hospital about 3 days ago and subsequently sent home. Today she came back as she had very severe pain. Denies any fever chills cough. Denies any abdominal pain. Reports he has some associated nausea with the pain. Denies any COVID exposures. Denies any chest pain or palpitations. Review of all other systems is negative except mentioned above ER course: Per ER team patient noted to have elevated liver enzymes and ultrasound showed CBD dilation. Spoke to Gastroenterology who recommended admission to Medicine Service for possible ERCP. acute hepatitis panel, salicylates, Tylenol, U tox sent. [facility] Medical History (Updated 08/26/20 @ 11:22 by Eulogio Johnson MD) No known health problems Surgical History (Updated 08/26/20 @ 09:21 by Juancarlos Kumar MD) H/O tubal ligation Social History Household Members: Children Housing: Apartment Do you presently have visiting nurse or other home services: No Alcohol intake: current Alcohol intake frequency: holidays/special occasions only Smoking Status: Current every day smoker Tobacco Type: Cigarette Cigarettes Per Day: 10 Smoked in Last 30 Days: Yes Patient Interested in Nicotine Replacement: No Use of substances other than those prescribed or required for medical reasons: No Currently Displaying Signs/Symptoms of Drug Intoxication Withdrawal: No Have you been hit, kicked, punched, or otherwise hurt by someone within the past year? If so, by whom?: No Do you feel safe in your current relationship?: No Current Relationship Is there a partner from a previous relationship who is making you feel unsafe now?: No Are you made to feel afraid or neglected: No Advance Directives: No Advance Directives Information Provided: Yes Do you have thoughts of harming others: None Do you have a plan to hurt others: No Plan Recently lost weight without trying: No service: No Current occupational status: employed Meds Allergies Allergy/AdvReac Type Severity Reaction Status Date / Time Penicillins [PENICILLINS] Allergy Unknown UNKNOWN Unverified 08/21/20 20:11 Active Medications: Current Medications Generic Name Dose Route Start Last Admin Trade Name Freq PRN Reason Stop Dose Admin Hydromorphone HCl 0.5 mg 08/24/20 21:16 Hydromorphone Hcl 0.5 Mg/0.5 Ml Syringe IVPUSH Q6H PRN Breakthrough Pain Dextrose/Sodium Chloride 1,000 mls @ 100 mls/hr 08/24/20 21:30 D51/2ns IVCONT .Q10H VANI Nicotine 14 mg 08/24/20 21:19 Nicotine 14 Mg Patch.Td24 TRANSDERMA 08/24/20 21:20 ONCE ONE Ondansetron HCl 4 mg 08/24/20 21:16 Ondansetron Hcl 4 Mg/2 Ml Vial IVPUSH Q8H PRN Nausea and Vomiting Senna 17.2 mg 08/24/20 21:16 Sennosides 8.6 Mg Tablet PO BEDTIME PRN Constipation Sodium Chloride 3 ml 08/25/20 00:00 0.9 % Sodium Chloride Flush 3 Ml Syringe IVFLUSH QSHIFT [facility] Physical Exam Vital Signs and Narrative: Vital Signs: Last Vital Signs Temp 99.1 F 08/24/20 19:29 Pulse 65 08/24/20 19:29 Resp 16 08/24/20 20:32 BP 137/83 08/24/20 19:29 Pulse Ox 100 08/24/20 19:29 Body Mass Index 26.5 Gen: Appears be in no acute distress HEENT: NCAT, Moist mucosa. Pulmonary: Vesicular breath sounds, fair air entry CVS: Normal S1-S2 Abdomen: BS+, Soft, tender in the epigastrium, no guarding no rigidity Extremities: Warm well perfused Neuro: Alert and awake. Results Labs CBC and Chem 7: 08/26/20 05:49 08/26/20 05:49 Labs: Laboratory Results - last 24 hr 08/24/20 08/24/20 08/24/20 16:58 16:58 16:58 MCV 91.9 MCH 30.8 MCHC 33.5 RDW 12.0 Plt Count 252 MPV 9.1 L Immature Gran % (Auto) 0.6 H Neut % (Auto) 77.7 H Lymph % (Auto) 16.3 L [place] % (Auto) 4.3 Eos % (Auto) 0.6 Baso % (Auto) 0.5 Lymph # (Auto) 1.6 [place] # (Auto) 0.4 Eos # (Auto) 0.1 Baso # (Auto) 0.1 Abs Immat Gran (auto) 0.06 H Absolute Neuts (auto) 7.5 Absolute Nucleated RBC 0.000 Nucleated RBC % (auto) 0.0 Hold Blue Top SEE NOTE Anion Gap 16 Estim Creat Clear Calc 87.6 Estimated GFR > 60 Random Glucose 130 H Calcium 10.0 D Magnesium 2.2 Total Bilirubin 3.7 H Direct Bilirubin 2.4 H AST 383 H ALT 702 H Alkaline Phosphatase 209 H D Total Protein 8.4 H Albumin 4.9 Lipase 15 Beta HCG, Quant < 2 Urine Opiates Screen Ur Barbiturates Screen Ur Phencyclidine Scrn Ur Amphetamines Screen U Benzodiazepines Scrn Urine Cocaine Screen U Marijuana (THC) Screen COVID-19 (JERRICA) COVID-19 [employer] 08/24/20 08/24/20 20:37 20:37 MCV MCH MCHC RDW Plt Count MPV Immature Gran % (Auto) Neut % (Auto) Lymph % (Auto) [place] % (Auto) Eos % (Auto) Baso % (Auto) Lymph # (Auto) [place] # (Auto) Eos # (Auto) Baso # (Auto) Abs Immat Gran (auto) Absolute Neuts (auto) Absolute Nucleated RBC Nucleated RBC % (auto) Hold Blue Top Anion Gap Estim Creat Clear Calc Estimated GFR Random Glucose Calcium Magnesium Total Bilirubin Direct Bilirubin AST ALT Alkaline Phosphatase Total Protein Albumin Lipase Beta HCG, Quant Urine Opiates Screen Not Detected Ur Barbiturates Screen Not Detected Ur Phencyclidine Scrn Not Detected Ur Amphetamines Screen Not Detected U Benzodiazepines Scrn Not Detected Urine Cocaine Screen Not Detected U Marijuana (THC) Screen POSITIVE H COVID-19 (JERRICA) Negative COVID-19 Clin Com See Note Imaging Radiologist's Impressions: Impressions Abdomen Ultrasound 08/24/20 13:22 IMPRESSION: Gallstones are noted with an otherwise normal-appearing gallbladder, however, a sonographic Hawthorne's sign was elicited. Additionally, the common bile duct is dilated. Although no stone is visualized within the common bile duct, choledocholithiasis is within the differential. Further evaluation can be obtained with HIDA imaging versus MRI/MRCP as clinically indicated. Assessment and Plan (1) Common bile duct (CBD) obstruction: Status: Acute 39-year-old female with no significant past medical history presented to the hospital with a chief complaint of epigastric pain noted to have transaminitis and CBD diet. Admitted to the hospital for further management. Tonsillitis/CBD dilation: Also noted to have gallstones. Gastroenterology notified for possible ERCP. NPO IV fluids Pain control Monitor liver enzymes. Follow-up acute hepatitis panel, salicylates, Tylenol levels. Patient denies using excess Tylenol. Zofran p.r.n. DVT prophylaxis: SCD boots Code status: Full code
[2020-08-24] MEDS: Dextrose 5 % and 0.45 % NaCl 1,000 ML 100 ML IVCONT (21:31)
[2020-08-24 21:33] VITALS: RESP 16
[2020-08-24 22:38] LABS: Acetaminophen LAB < 1 mcg/mL (<30); Salicylate < 5.0 mg/dL (15-30)
--- NOTE | 2020-08-25 00:32 | PC.NURSE ---
Report received. PT is resting in bed. Calm, cooperative, and in no apparent distress. PT is being admitted.
[2020-08-25] MEDS: 0.9 % Sodium Chloride Flush 3 ML SYRINGE IVFLUSH ×3 (01:54→20:36)
[2020-08-25 04:22] VITALS: BP 108/64; PULSE 53; RESP 16; TEMP 36.7; O2SAT 99
[2020-08-25 07:16] LABS: MANUAL DIFF FLAG NO
[2020-08-25 07:23] LABS: Basophils Absolute Auto 0.1 X10*3/uL (0.0-0.2); Basophils Percent Auto 0.7 % (0-2); Eosinophils Absolute Auto 0.2 X10*3/uL (0.0-0.4); Eosinophils Percent Auto 2.1 % (0-4); Hematocrit 39.1 % (37-47); Imm Gran Abs Auto 0.06 X10*3/uL (0.00-0.03); Imm Gran Pct Auto 0.8 % (0.0-0.4); Lymphocytes Absolute Auto 1.6 X10*3/uL (1.2-4.9); Lymphocytes Percent Auto 21.2 % (20-40); Mean Corpuscular HGB Conc 33.2 g/dl (31.0-35.0); Mean Corpuscular Hemoglobin 31.1 pg (27.0-33.0); Mean Corpuscular Volume 93.5 fL (80-98); Mean Platelet Volume 9.4 fL (9.4-12.3); Monocytes Absolute Auto 0.5 X10*3/uL (0.1-1.2); Monocytes Percent Auto 5.9 % (2-11); Neutrophils Absolute Auto 5.3 X10*3/uL (2.0-8.3); Neutrophils Percent Auto 69.3 % (45-73); Platelet Count 207 X10*3/uL (160-400); Red Blood Count 4.18 X10*6/uL (4.20-5.50); White Blood Count 7.7 X10*3/uL (4.8-10.8)
[2020-08-25 07:25] LABS: INTERNATIONAL NORM RATIO 1.1 (0.9-1.1); Prothrombin Time 13.3 SEC (10.8-13.0)
--- NOTE | 2020-08-25 07:29 | PC.NURSE ---
store room contacted for d5 .45
[2020-08-25 07:36] VITALS: BP 106/68; PULSE 67; RESP 18; O2SAT 98
[2020-08-25 08:10] LABS: Alanine Aminotransferase 452 U/L (0-31); Albumin Level 3.9 g/dL (3.5-5.0); Alkaline Phosphatase 151 U/L (39-117); Aspartate Amino Transferase 160 U/L (5-31); Bilirubin Direct 0.6 mg/dL (0.0-0.5); Bilirubin Total 1.3 mg/dL (0.0-1.0); Total Protein 6.6 g/dL (6.5-8.0)
[2020-08-25 08:13] LABS: HBS Num1 > 1000.00 mIU/mL (0-7.99); HBc Num1 0.06 S/CO (0.00-0.79); Hepatitis B Core Antibody Nonreactive (Nonreactive); ~Hepatitis B Surface Antibody REACTIVE (Nonreactive)
[2020-08-25 08:23] LABS: Anion Gap 12 (12-20); Blood Urea Nitrogen 7 mg/dL (9-16); Calcium 8.4 mg/dL (8.4-10.2); Carbon Dioxide 26 mmol/L (22-29); Chloride 103 mmol/L (96-108); Creatinine Clr Calc Pharmacy 94.8; Estimated Glomerular Filt Rate > 60; Glucose Random 155 mg/dL (60-115); Potassium 4.2 mmol/L (3.3-5.1); Sodium 137 mmol/L (135-145)
[2020-08-25 08:27] LABS: Hepatitis A Antibody IgM 0.17 Index (0-0.79); ~Hepatitis A Antibody IgM Nonreactive (Nonreactive)
[2020-08-25 08:37] LABS: HBsAGNum1 0.19 S/CO (0.00-0.99); Hepatitis A Antibody IgM 0.19 Index (0-0.79); Hepatitis B Surface Antigen Negative (Negative); ~Hepatitis A Antibody IgM Nonreactive (Nonreactive); ~Hepatitis C Antibody Nonreactive (Nonreactive)
--- NOTE | 2020-08-25 08:40 | PM.GICN ---
History of Present Illness Data of Consult Service Date: 08/25/20 Requesting physician: Gregg Paulino Primary Care Provider: Samuel Mccarthy MD [facility] Reason for consult: gallstones, abn LFT 39 yr old f being seen for abn LFT She had severe 10/10 colicky epigastric pain going into the back with nausea, but no fevers for last few days, she had similar pain in past worse with greasy foods. She denies bloody emesis, diarrhea, constipation. Non smoker, no alcohol and no drug use. She is otherwise healthy, no FH of biliary, or stomach disease. Imaging with dilated CBD, no stones seen in duct but noted cholelithiasis. LFT elevated initially bu coming down and pain is much less now. I asked care team to get MRCP and this was personally reviwed with Dr Zheng--no CBD stones or stricture seen Review of Systems Review of Systems: Yes all other systems are reviewed and are negative Constitutional: Constitutional: Reports as per HPI and Reports no additional constitutional complaints Eyes: Eyes: Reports as per HPI and Reports no additional eye complaints ENT: Reports system reviewed and no additional complaints, except as documented and Reports as per HPI Cardiovascular: Cardiovascular: Reports as per HPI and Reports no additional cardiovascular complaints Respiratory: Respiratory: Reports as per HPI and Reports no additional respiratory complaints Gastrointestinal: Gastrointestinal: Reports as per HPI, Reports no additional gastrointestinal complaints, Reports abdominal pain, Reports nausea and Reports vomiting Musculoskeletal: Musculoskeletal: Reports no additional musculoskeletal complaints and Reports as per HPI Neurologic: Reports system reviewed and no additional complaints, except as documented and Reports as per HPI Psychiatric: Psychiatric: Reports no additional psychiatric complaints and Reports as per HPI [facility] Past Medical History Medical History (Updated 08/25/20 @ 17:39 by Karthik Alcantara MD) No known health problems Social History Social History Household Members: Children Housing: Apartment Do you presently have visiting nurse or other home services: No Alcohol intake: current Alcohol intake frequency: holidays/special occasions only Smoking Status: Current every day smoker Tobacco Type: Cigarette Cigarettes Per Day: 10 Smoked in Last 30 Days: Yes Patient Interested in Nicotine Replacement: No Use of substances other than those prescribed or required for medical reasons: No Currently Displaying Signs/Symptoms of Drug Intoxication Withdrawal: No Have you been hit, kicked, punched, or otherwise hurt by someone within the past year? If so, by whom?: No Do you feel safe in your current relationship?: No Current Relationship Is there a partner from a previous relationship who is making you feel unsafe now?: No Are you made to feel afraid or neglected: No Advance Directives: No Advance Directives Information Provided: Yes Do you have thoughts of harming others: None Do you have a plan to hurt others: No Plan Recently lost weight without trying: No Meds Allergies Allergy/AdvReac Type Severity Reaction Status Date / Time Penicillins [PENICILLINS] Allergy Unknown UNKNOWN Unverified 08/21/20 20:11 Active Medications: Current Medications Generic Name Dose Route Start Last Admin Trade Name Freq PRN Reason Stop Dose Admin Hydromorphone HCl 0.5 mg 08/24/20 21:16 Hydromorphone Hcl 0.5 Mg/0.5 Ml Syringe IVPUSH Q6H PRN Breakthrough Pain Dextrose/Sodium Chloride 1,000 mls @ 100 mls/hr 08/24/20 21:30 08/25/20 07:36 D51/2ns IVCONT Infused .Q10H VANI Infusion Ondansetron HCl 4 mg 08/24/20 21:16 Ondansetron Hcl 4 Mg/2 Ml Vial IVPUSH Q8H PRN Nausea and Vomiting Senna 17.2 mg 08/24/20 21:16 Sennosides 8.6 Mg Tablet PO BEDTIME PRN Constipation Sodium Chloride 3 ml 08/25/20 00:00 08/25/20 08:33 0.9 % Sodium Chloride Flush 3 Ml Syringe IVFLUSH 3 ml QSHIFT VANI Administration Physical Exam Vital Signs: Vital Signs: Last Vital Signs Temp 98.1 F 08/25/20 04:22 Pulse 67 08/25/20 07:36 Resp 18 08/25/20 07:36 BP 106/68 08/25/20 07:36 Pulse Ox 98 08/25/20 07:36 Body Mass Index 26.5 Const: Other: Constitutional : Alert, oriented, not in distress Neck : Normal inspection, Supple Cardiovascular : RRR, S1 S2, no lower extremity edema Respiratory : Good bilateral air entry, no crackles, wheezes or rhonchi Gastrointestinal: soft, lax, Normal bowel sounds, no RUQ tenderness , no Hawthorne's sign, no surgical signs Skin : Warm/Dry, No rash Neurological : Alert & oriented x3, No focal deficit General: cooperative, healthy appearing and acute distress Orientation/consciousness: patient oriented x3 HENMT: Head: Yes normal to inspection, Yes No palpable skull fracture present, Yes normocephalic and Yes atraumatic Eyes: General: appearance normal, both eyes and all related structures Neck: Neck: Yes normal visual inspection, Yes full ROM, Yes no lymphadenopathy, Yes no meningeal signs, Yes trachea midline, Yes supple and No tender Chest: Chest palpation & inspection: normal inspection of the chest and normal palpation of entire chest wall Resp: Effort & Inspection: normal respiratory effort and able to speak in complete sentences Auscultation: clear to auscultation bilaterally Cardio: Jugular venous distension: no JVD Heart sounds: S1 normal heart sound present and S2 normal heart sound present GI: Inspection: Yes normal to inspection and No abdominal wall ecchymosis Palpation (GI): Tenderness to palpation present (GI) in the epigastrum and Hawthorne's sign positive, Guarding due to palpation present (GI) and Rigid due to palpation : General: No CVA tenderness and Yes no CVA tenderness Back/Spine/Pelvis: Back: no CVA tenderness, No CVA tenderness and No back tenderness Skin: General skin exam: no rashes or lesions noted and elasticity normal Neuro: General: patient oriented x3, no meningeal signs and CN's II-XI intact bilaterally Cranial nerves: Yes CN's II-XII intact bilaterally Extrem: General: Yes normal to inspection and Yes full ROM Psych: Appearance: grossly normal, well kempt and not disheveled Results Labs CBC & Chem 7: 08/25/20 06:41 08/25/20 06:41 Labs: Short CBC 08/24/20 08/25/20 Range/Units 16:58 06:41 WBC 9.7 7.7 (4.8-10.8) X10*3/uL Hgb 15.1 13.0 (12.0-16.0) g/dl Hct 45.1 39.1 (37-47) % Plt Count 252 207 (160-400) X10*3/uL BMP 08/24/20 08/25/20 16:58 06:41 Sodium 137 137 Potassium 4.3 D 4.2 Chloride 100 103 Carbon Dioxide 25 26 BUN 10 7 L Creatinine 0.79 0.73 Calcium 10.0 D 8.4 D Liver Function 08/24/20 08/25/20 Range/Units 16:58 06:42 Total Bilirubin 3.7 H 1.3 H (0.0-1.0) mg/dL Direct Bilirubin 2.4 H 0.6 H (0.0-0.5) mg/dL AST 383 H 160 H (5-31) U/L ALT 702 H 452 H (0-31) U/L Alkaline Phosphatase 209 H D 151 H D (39-117) U/L Albumin 4.9 3.9 D (3.5-5.0) g/dL Assessment and Plan (1) Cholelithiasis: Status: Acute 1/ Symptomatic cholelithiasis-She probably has passed a CBD stone, hence the down trend in LFT PLAN: 1/ cont to monitor, if keeps improving and LFT normalize then no ERCP but if pain recurs and LFT start rising again then ERCP is reasonable 2/ Surgical consult for cholecystectomy
[2020-08-25] MEDS: Dextrose 5 % and 0.45 % NaCl 1,000 ML 100 ML IVCONT ×2 (08:53→18:24)
--- NOTE | 2020-08-25 09:02 | PC.NURSE ---
mri form completed
--- NOTE | 2020-08-25 09:26 | PC.NURSE ---
pt to mri
--- NOTE | 2020-08-25 11:41 | PC.NURSE ---
patient a&ox3, no c/o pain or discomfort at this time, ivf restarted D5 1/2 ns at 100, will continue to monitor.
[2020-08-25 12:00] VITALS: BP 126/84; PULSE 79; RESP 18; TEMP 36.1; O2SAT 100
--- NOTE | 2020-08-25 12:23 | PC.NURSE ---
called floor, they stated the room is not clean and will have the nurse call the ed back
--- NOTE | 2020-08-25 13:08 | PC.NURSE ---
called the floor again, field secretary stated she will give the message to the nurse to call the ED back for report.
[2020-08-25 15:31] VITALS: BP 113/64; PULSE 52; RESP 16; TEMP 36.1; O2SAT 98
--- NOTE | 2020-08-25 15:38 | P.PNIM_ITS ---
Subjective Subjective Date of Service: 08/25/20 Interval History: the patient was seen and evaluated this morning Laying in bed, feels comfortable as the pain improved significantly since yesterday Blood work showing improvement in transaminitis Denies any fever, chills or shortness of breath No reported other overnight events. Systemic review: No fever, chills or weakness No chest pain, palpitation No shortness of breath or coughing Right upper quadrant abdominal pain has improved significantly, nausea or vomiting No urinary symptoms No any rash or wounds Physical Exam Vital Signs: Vital Signs: Last Vital Signs Temp 97.0 F 08/25/20 15:31 Pulse 52 08/25/20 15:31 Resp 16 08/25/20 15:31 BP 113/64 08/25/20 15:31 Pulse Ox 98 08/25/20 15:31 Body Mass Index 26.5 Const: Other: Constitutional : Alert, oriented, not in distress Neck : Normal inspection, Supple Cardiovascular : RRR, S1 S2, no lower extremity edema Respiratory : Good bilateral air entry, no crackles, wheezes or rhonchi Gastrointestinal: soft, lax, Normal bowel sounds, no RUQ tenderness , no Hawthorne's sign, no surgical signs Skin : Warm/Dry, No rash Neurological : Alert & oriented x3, No focal deficit Objective Data Current Medications Generic Name Dose Route Start Last Admin Trade Name Freq PRN Reason Stop Dose Admin Hydromorphone HCl 0.5 mg 08/24/20 21:16 Hydromorphone Hcl 0.5 Mg/0.5 Ml Syringe IVPUSH Q6H PRN Breakthrough Pain Dextrose/Sodium Chloride 1,000 mls @ 100 mls/hr 08/24/20 21:30 08/25/20 08:53 D51/2ns IVCONT 100 mls/hr .Q10H VANI Administration Ondansetron HCl 4 mg 08/24/20 21:16 Ondansetron Hcl 4 Mg/2 Ml Vial IVPUSH Q8H PRN Nausea and Vomiting Senna 17.2 mg 08/24/20 21:16 Sennosides 8.6 Mg Tablet PO BEDTIME PRN Constipation Sodium Chloride 3 ml 08/25/20 00:00 08/25/20 08:33 0.9 % Sodium Chloride Flush 3 Ml Syringe IVFLUSH 3 ml QSHIFT VANI Administration Labs CBC & Chem 7: 08/25/20 06:41 08/25/20 06:41 Assessment and Plan (1) Common bile duct (CBD) obstruction: Status: Acute Assessment and Plan: 39-year-old female with no significant past medical history presented to the hospital with a chief complaint of epigastric pain noted to have transaminitis a nd CBD diet. Admitted to the hospital for further management. Transaminitis CBD dilation, GB stones noted to have gallstones on abdomen images MRCP showing no obstructive stones Liver enzymes trending down, likely passed a stone GI input appreciated, continue to monitor and hold on ERCP Start liquid diet Continue IV fluids Pain control Monitor liver enzymes. Kacie p.r.n. Consider surgery eval for cholecystectomy electively . DVT prophylaxis SCD boots
[2020-08-25 19:22] VITALS: BP 98/54; PULSE 55; RESP 16; TEMP 37; O2SAT 98
[2020-08-26] VITALS (7 sets, daily range): BP systolic 96–106; BP diastolic 57–63; PULSE 50–79; RESP 16–18; TEMP 36.4–37.3; O2SAT 97–100
[2020-08-26] MEDS: Dextrose 5 % and 0.45 % NaCl 1,000 ML 100 ML IVCONT ×2 (04:18→15:21)
[2020-08-26 06:52] LABS: Hematocrit 37.8 % (37-47); Hemoglobin 12.4 g/dl (12.0-16.0); Mean Corpuscular HGB Conc 32.8 g/dl (31.0-35.0); Mean Corpuscular Hemoglobin 30.6 pg (27.0-33.0); Mean Corpuscular Volume 93.3 fL (80-98); Mean Platelet Volume 9.5 fL (9.4-12.3); Platelet Count 193 X10*3/uL (160-400); Red Blood Count 4.05 X10*6/uL (4.20-5.50); White Blood Count 7.7 X10*3/uL (4.8-10.8)
[2020-08-26 07:45] LABS: Alanine Aminotransferase 338 U/L (0-31); Albumin Level 3.8 g/dL (3.5-5.0); Alkaline Phosphatase 127 U/L (39-117); Anion Gap 14 (12-20); Aspartate Amino Transferase 97 U/L (5-31); Bilirubin Direct 0.5 mg/dL (0.0-0.5); Bilirubin Total 0.9 mg/dL (0.0-1.0); Blood Urea Nitrogen 5 mg/dL (9-16); Calcium 8.6 mg/dL (8.4-10.2); Carbon Dioxide 24 mmol/L (22-29); Chloride 104 mmol/L (96-108); Creatinine Clr Calc Pharmacy 94.8; Estimated Glomerular Filt Rate > 60; Glucose Random 148 mg/dL (60-115); Potassium 3.8 mmol/L (3.3-5.1); Sodium 138 mmol/L (135-145); Total Protein 6.5 g/dL (6.5-8.0)
--- NOTE | 2020-08-26 08:37 | MHC.CM.PN ---
[id number] DX AB pain . She lives with family. She is independent with all functional mobility. DP home no services family transport. CM will follow for a change in needs @ discharge.
--- NOTE | 2020-08-26 09:18 | PM.CNGS ---
History of Present Illness Consult details Consult date: 08/26/20 Reason for consult: gallstones Narrative: 39-year-old female referred for gallstones. She was admitted to the hospital on the night of 08/24/2020 because of epigastric pain. She says it was ?severe? and that time. This lasted for a few are stand had resolved as of yesterday morning. She however had elevated LFTs and ultrasound had shown gallstones and suggestion of CBD dilatation. She underwent MRCP yesterday which did not reveal any defect in the common bile duct. Furthermore, her LFTs had trended down significantly yesterday and has normalized today. She currently denies any abdominal pain. She does not have any GI complaints. She actually went to the ER as well on August 21, 2020 because of the same epigastric pain. A CAT scan done at that time showed gallstones without cholecystitis and she was sent home for possible biliary colic as her pain had resolved. Review of Systems Constitutional: Constitutional: Denies chills and Denies fever(s) Cardiovascular: Cardiovascular: Denies chest pain, Denies dyspnea and Denies dyspnea on exertion Respiratory: Respiratory: Denies cough, Denies dyspnea and Denies dyspnea on exertion Gastrointestinal: Gastrointestinal: Denies hematochezia and Denies change in bowel habits Genitourinary: Genitourinary: Denies hematuria Musculoskeletal: Musculoskeletal: Denies back pain and Denies limited range of motion Neurologic: Denies focal weakness and Denies convulsions Psychiatric: Psychiatric: Denies depression and Denies mood swings PMFSH Past Medical History Medical History (Updated 08/26/20 @ 11:22 by Eulogio Johnson MD) No known health problems Surgical History Surgical History (Updated 08/26/20 @ 09:21 by Juancarlos Kuamr MD) H/O tubal ligation Social History Social History Household Members: Children Housing: Apartment Alcohol intake: current Alcohol intake frequency: holidays/special occasions only Smoking Status: Current every day smoker Tobacco Type: Cigarette Cigarettes Per Day: 10 service: No Current occupational status: employed Meds Allergies Allergy/AdvReac Type Severity Reaction Status Date / Time Penicillins [PENICILLINS] Allergy Unknown UNKNOWN Unverified 08/21/20 20:11 Active Medications: Current Medications Generic Name Dose Route Start Last Admin Trade Name Freq PRN Reason Stop Dose Admin Hydromorphone HCl 0.5 mg 08/24/20 21:16 Hydromorphone Hcl 0.5 Mg/0.5 Ml Syringe IVPUSH Q6H PRN Breakthrough Pain Dextrose/Sodium Chloride 1,000 mls @ 100 mls/hr 08/24/20 21:30 08/26/20 04:18 D51/2ns IVCONT 100 mls/hr .Q10H VANI Administration Ondansetron HCl 4 mg 08/24/20 21:16 Ondansetron Hcl 4 Mg/2 Ml Vial IVPUSH Q8H PRN Nausea and Vomiting Senna 17.2 mg 08/24/20 21:16 Sennosides 8.6 Mg Tablet PO BEDTIME PRN Constipation Sodium Chloride 3 ml 08/25/20 00:00 08/25/20 20:36 0.9 % Sodium Chloride Flush 3 Ml Syringe IVFLUSH 3 ml QSHIFT VANI Administration Physical Exam Vital Signs: Vital Signs: Last Vital Signs Temp 97.9 F 08/26/20 07:37 Pulse 50 08/26/20 07:37 Resp 16 08/26/20 07:37 BP 106/58 L 08/26/20 07:37 Pulse Ox 99 08/26/20 07:37 Body Mass Index 26.5 Const: General: comfortable and no acute distress Orientation/consciousness: patient oriented x3 Eyes: Other: Anicteric sclerae Neck: Neck: Yes no lymphadenopathy Resp: Auscultation: clear to auscultation bilaterally Cardio: Rhythm: regular rhythm GI: Palpation (GI): Soft to palpation, nontender and no guarding Neuro: General: patient oriented x3 Results Labs Result diagrams: 08/26/20 05:49 08/26/20 05:49 Labs: Abnormal lab results 08/26/20 08/26/20 Range/Units 05:49 05:49 RBC 4.05 L (4.20-5.50) X10*6/uL BUN 5 L (9-16) mg/dL Random Glucose 148 H (60-115) mg/dL AST 97 H (5-31) U/L ALT 338 H (0-31) U/L Alkaline Phosphatase 127 H (39-117) U/L Short CBC 08/26/20 Range/Units 05:49 WBC 7.7 (4.8-10.8) X10*3/uL Hgb 12.4 (12.0-16.0) g/dl Hct 37.8 (37-47) % Plt Count 193 (160-400) X10*3/uL BMP 08/26/20 05:49 Sodium 138 Potassium 3.8 Chloride 104 Carbon Dioxide 24 BUN 5 L Creatinine 0.73 Calcium 8.6 Liver Function 08/26/20 Range/Units 05:49 Total Bilirubin 0.9 (0.0-1.0) mg/dL Direct Bilirubin 0.5 (0.0-0.5) mg/dL AST 97 H (5-31) U/L ALT 338 H (0-31) U/L Alkaline Phosphatase 127 H (39-117) U/L Albumin 3.8 (3.5-5.0) g/dL All other labs normal. Imaging Abdomen CT scan report/results: report reviewed and image reviewed Abdominal ultrasound report/results: report reviewed and image reviewed Additional studies: MRCP also reviewed Assessment and Plan (1) Cholelithiasis: Status: Acute She came in with severe epigastric pain which had resolved after a few hours. She had gallstones seen on both an ultrasound and CAT scan. She also had elevated LFTs especially bilirubin, and this also trended down significantly almost immediately. Her overall clinical picture suggests passage of a gallstone through the common bile duct. Her MRI does not reveal any filling defect. Her LFTs have normalized today. I therefore explained to her the option of proceeding with cholecystectomy to prevent future recurrences. I discussed the technique of laparoscopic cholecystectomy and possible open cholecystectomy. I reviewed with her the risks including but not limited to bleeding, infections, injury to bowel, liver, bile duct, retained stones, bile leak, as well as the benefits and alternatives. She wants to proceed. She also says that she wanted to have the procedure done before she is discharged. I will therefore put her on the OR list for tomorrow. She understands the plan. The plan was discussed with the hospitalist service as well.
[2020-08-26] MEDS: 0.9 % Sodium Chloride Flush 3 ML SYRINGE IVFLUSH (10:05)
--- NOTE | 2020-08-26 11:19 | HO.PM.IMPN ---
Subjective Subjective Date of Service: 08/26/20 Interval History: Patient feeling better, tolerating clear liquid diet no nausea no vomiting, felt right upper quadrant abdominal pain transiently now resolved, no acute issues overnight ROS. General no headache, no dizziness, no fever chills. CVS no chest pain, no palpitation. Respiratory no cough, no sputum production no respiratory distress. Gastrointestinal no nausea, no vomiting, no abdominal pain Physical Exam Vital Signs: Vital Signs: Last Vital Signs Temp 97.9 F 08/26/20 07:37 Pulse 50 08/26/20 07:37 Resp 16 08/26/20 07:37 BP 106/58 L 08/26/20 07:37 Pulse Ox 99 08/26/20 07:37 Body Mass Index 26.5 General patient resting comfortably, no acute distress. Neck supple, no JVD. CVS regular rate rhythm, Respiratory lungs clear to auscultation, no respiratory distress, no wheeze, no rhonchi. Gastrointestinal abdomen soft, nontender, bowel sounds audible, no guarding , no rigidity. Extremities no edema. Neuro nonfocal Skin no rash Objective Data Current Medications Generic Name Dose Route Start Last Admin Trade Name Freq PRN Reason Stop Dose Admin Hydromorphone HCl 0.5 mg 08/24/20 21:16 Hydromorphone Hcl 0.5 Mg/0.5 Ml Syringe IVPUSH Q6H PRN Breakthrough Pain Dextrose/Sodium Chloride 1,000 mls @ 100 mls/hr 08/24/20 21:30 08/26/20 04:18 D51/2ns IVCONT 100 mls/hr .Q10H VANI Administration Ondansetron HCl 4 mg 08/24/20 21:16 Ondansetron Hcl 4 Mg/2 Ml Vial IVPUSH Q8H PRN Nausea and Vomiting Senna 17.2 mg 08/24/20 21:16 Sennosides 8.6 Mg Tablet PO BEDTIME PRN Constipation Sodium Chloride 3 ml 08/25/20 00:00 08/26/20 10:05 0.9 % Sodium Chloride Flush 3 Ml Syringe IVFLUSH 3 ml QSHIFT VANI Administration Labs CBC & Chem 7: 08/26/20 05:49 08/26/20 05:49 Assessment and Plan (1) Transaminitis: Status: Acute (2) Cholelithiasis: Status: Acute (3) Common bile duct (CBD) obstruction: Status: Acute Assessment and Plan: 39-year-old female with no significant past medical history presented to the hospital with a chief complaint of epigastric pain noted to have transaminitis and CBD diet. Admitted to the hospital for further management. Transaminitis Due to gallbladder stone and common bile duct dilatation Patient abdominal pain has resolved, no nausea, no vomiting, tolerating clear liquid noted to have gallstones on abdomen images,MRCP showed no obstructive stones Liver enzymes trending down, likely passed a CBD stone Obtain surgical consult patient seen by Dr. Kumar and plan is for laparoscopic cholecystectomy tomorrow morning. Continue IV fluids, symptomatic treatment and pain control Follow LFTs DVT prophylaxis SCD boots
[2020-08-27] VITALS (13 sets, daily range): BP systolic 95–157; BP diastolic 68–95; PULSE 62–81; RESP 15–20; TEMP 35.9–37.1; O2SAT 93–100
[2020-08-27] MEDS: Dextrose 5 % and 0.45 % NaCl 1,000 ML 100 ML IVCONT (02:28)
[2020-08-27] MEDS: HYDROmorphone HCl 0.5 MG/0.5 ML SYRINGE IVPUSH (02:32)
[2020-08-27 06:48] LABS: Alanine Aminotransferase 283 U/L (0-31); Albumin Level 3.6 g/dL (3.5-5.0); Alkaline Phosphatase 110 U/L (39-117); Aspartate Amino Transferase 89 U/L (5-31); Bilirubin Direct 0.4 mg/dL (0.0-0.5); Bilirubin Total 0.8 mg/dL (0.0-1.0)
[2020-08-27] MEDS: Lactated Ringers 1,000 ML 50 ML IV (09:05)
--- NOTE | 2020-08-27 09:34 | P.CONAN_ITS ---
HPI - Anesthesia Eval Consult details Narrative: Gallstones PMFSH Active Problems Active Problems: All Active Problems (Updated 08/26/20 @ 11:22 by Eulogio Johnson MD) Transaminitis (Acute) H/O tubal ligation (Acute) Cholelithiasis (Acute) Common bile duct (CBD) obstruction (Acute) Past Medical History Medical History No known health problems Surgical History Surgical History H/O tubal ligation Social History Social History Household Members: Children Housing: Apartment Do you presently have visiting nurse or other home services: No Alcohol intake: current Alcohol intake frequency: holidays/special occasions only Smoking Status: Current every day smoker Tobacco Type: Cigarette Cigarettes Per Day: 10 Smoked in Last 30 Days: Yes Patient Interested in Nicotine Replacement: No Use of substances other than those prescribed or required for medical reasons: No Currently Displaying Signs/Symptoms of Drug Intoxication Withdrawal: No Have you been hit, kicked, punched, or otherwise hurt by someone within the past year? If so, by whom?: No Do you feel safe in your current relationship?: No Current Relationship Is there a partner from a previous relationship who is making you feel unsafe now?: No Are you made to feel afraid or neglected: No Advance Directives: No Advance Directives Information Provided: Yes Do you have thoughts of harming others: None Do you have a plan to hurt others: No Plan Recently lost weight without trying: Yes service: No Current occupational status: employed Meds Allergies Allergy/AdvReac Type Severity Reaction Status Date / Time Penicillins [PENICILLINS] Allergy Unknown UNKNOWN Verified 08/27/20 08:58 Active Medications: Current Medications Generic Name Dose Route Start Last Admin Trade Name Freq PRN Reason Stop Dose Admin Hydromorphone HCl 0.5 mg 08/24/20 21:16 08/27/20 02:32 Hydromorphone Hcl 0.5 Mg/0.5 Ml Syringe IVPUSH 0.5 mg Q6H PRN Administration Breakthrough Pain Dextrose/Sodium Chloride 1,000 mls @ 100 mls/hr 08/24/20 21:30 08/27/20 08:51 D51/2ns IVCONT 0 mls/hr .Q10H VANI Infusion Cefotetan Disodium 2 gm/ 50 mls @ 100 mls/hr 08/27/20 08:00 Sodium Chloride IV PREOP@0800 VANI Ondansetron HCl 4 mg 08/24/20 21:16 Ondansetron Hcl 4 Mg/2 Ml Vial IVPUSH Q8H PRN Nausea and Vomiting Senna 17.2 mg 08/24/20 21:16 Sennosides 8.6 Mg Tablet PO BEDTIME PRN Constipation Sodium Chloride 3 ml 08/25/20 00:00 08/27/20 08:50 0.9 % Sodium Chloride Flush 3 Ml Syringe IVFLUSH Not Given QSHIFT [facility] Exam Exam Date and Time: August 27, 2020 0934 Height,Weight and Vital Signs: Height 5 ft 3 in Weight 68.039 kg Last Vital Signs Temp 97.5 F 08/27/20 08:58 Pulse 63 08/27/20 08:58 Resp 16 08/27/20 08:58 BP 122/68 08/27/20 08:58 Pulse Ox 99 08/27/20 08:58 Pertinent Lab Results Pertinent Lab Results: Laboratory Tests 08/24/20 08/24/20 08/24/20 16:58 16:58 16:58 WBC 9.7 RBC 4.91 Hgb 15.1 Hct 45.1 MCV 91.9 MCH 30.8 MCHC 33.5 RDW 12.0 Plt Count 252 MPV 9.1 L Immature Gran % (Auto) 0.6 H Neut % (Auto) 77.7 H Lymph % (Auto) 16.3 L Hutchinson % (Auto) 4.3 Eos % (Auto) 0.6 Baso % (Auto) 0.5 Lymph # (Auto) 1.6 Hutchinson # (Auto) 0.4 Eos # (Auto) 0.1 Baso # (Auto) 0.1 Abs Immat Gran (auto) 0.06 H Absolute Neuts (auto) 7.5 Absolute Nucleated RBC 0.000 Nucleated RBC % (auto) 0.0 PT INR Hold Blue Top SEE NOTE Sodium 137 Potassium 4.3 D Chloride 100 Carbon Dioxide 25 Anion Gap 16 BUN 10 Creatinine 0.79 Estim Creat Clear Calc 87.6 Estimated GFR > 60 Random Glucose 130 H Calcium 10.0 D Magnesium 2.2 Total Bilirubin 3.7 H Direct Bilirubin 2.4 H AST 383 H ALT 702 H Alkaline Phosphatase 209 H D Total Protein 8.4 H Albumin 4.9 Lipase 15 Beta HCG, Quant < 2 Salicylates Urine Opiates Screen Acetaminophen Ur Barbiturates Screen Ur Phencyclidine Scrn Ur Amphetamines Screen U Benzodiazepines Scrn Urine Cocaine Screen U Marijuana (THC) Screen COVID-19 (JERRICA) COVID-19 Clin Com Hepatitis A IgM Ab Hep Bs Antigen Hep Bs Antibody Hep B Core Total Ab Hepatitis C Ab (EIA) 08/24/20 08/24/20 08/24/20 20:37 20:37 22:01 WBC RBC Hgb Hct MCV MCH MCHC RDW Plt Count MPV Immature Gran % (Auto) Neut % (Auto) Lymph % (Auto) Hutchinson % (Auto) Eos % (Auto) Baso % (Auto) Lymph # (Auto) Hutchinson # (Auto) Eos # (Auto) Baso # (Auto) Abs Immat Gran (auto) Absolute Neuts (auto) Absolute Nucleated RBC Nucleated RBC % (auto) PT INR Hold Blue Top Sodium Potassium Chloride Carbon Dioxide Anion Gap BUN Creatinine Estim Creat Clear Calc Estimated GFR Random Glucose Calcium Magnesium Total Bilirubin Direct Bilirubin AST ALT Alkaline Phosphatase Total Protein Albumin Lipase Beta HCG, Quant Salicylates Urine Opiates Screen Not Detected Acetaminophen Ur Barbiturates Screen Not Detected Ur Phencyclidine Scrn Not Detected Ur Amphetamines Screen Not Detected U Benzodiazepines Scrn Not Detected Urine Cocaine Screen Not Detected U Marijuana (THC) Screen POSITIVE H COVID-19 (JERRICA) Negative COVID-19 Clin Com See Note Hepatitis A IgM Ab Nonreactive Hep Bs Antigen Negative Hep Bs Antibody REACTIVE Hep B Core Total Ab Nonreactive Hepatitis C Ab (EIA) Nonreactive 08/24/20 08/24/20 08/25/20 22:01 22:01 06:41 WBC 7.7 RBC 4.18 L Hgb 13.0 Hct 39.1 MCV 93.5 MCH 31.1 MCHC 33.2 RDW 12.0 Plt Count 207 MPV 9.4 Immature Gran % (Auto) 0.8 H Neut % (Auto) 69.3 Lymph % (Auto) 21.2 Hutchinson % (Auto) 5.9 Eos % (Auto) 2.1 Baso % (Auto) 0.7 Lymph # (Auto) 1.6 Hutchinson # (Auto) 0.5 Eos # (Auto) 0.2 Baso # (Auto) 0.1 Abs Immat Gran (auto) 0.06 H Absolute Neuts (auto) 5.3 Absolute Nucleated RBC 0.000 Nucleated RBC % (auto) 0.0 PT INR Hold Blue Top Sodium Potassium Chloride Carbon Dioxide Anion Gap BUN Creatinine Estim Creat Clear Calc Estimated GFR Random Glucose Calcium Magnesium Total Bilirubin Direct Bilirubin AST ALT Alkaline Phosphatase Total Protein Albumin Lipase Beta HCG, Quant Salicylates < 5.0 L Urine Opiates Screen Acetaminophen < 1 Ur Barbiturates Screen Ur Phencyclidine Scrn Ur Amphetamines Screen U Benzodiazepines Scrn Urine Cocaine Screen U Marijuana (THC) Screen COVID-19 (JERRICA) COVID-19 Clin Com Hepatitis A IgM Ab Nonreactive Hep Bs Antigen Hep Bs Antibody Hep B Core Total Ab Hepatitis C Ab (EIA) 08/25/20 08/25/20 08/25/20 06:41 06:41 06:42 WBC RBC Hgb Hct MCV MCH MCHC RDW Plt Count MPV Immature Gran % (Auto) Neut % (Auto) Lymph % (Auto) Hutchinson % (Auto) Eos % (Auto) Baso % (Auto) Lymph # (Auto) Hutchinson # (Auto) Eos # (Auto) Baso # (Auto) Abs Immat Gran (auto) Absolute Neuts (auto) Absolute Nucleated RBC Nucleated RBC % (auto) PT 13.3 H INR 1.1 Hold Blue Top Sodium 137 Potassium 4.2 Chloride 103 Carbon Dioxide 26 Anion Gap 12 BUN 7 L Creatinine 0.73 Estim Creat Clear Calc 94.8 Estimated GFR > 60 Random Glucose 155 H Calcium 8.4 D Magnesium Total Bilirubin 1.3 H Direct Bilirubin 0.6 H AST 160 H ALT 452 H Alkaline Phosphatase 151 H D Total Protein 6.6 D Albumin 3.9 D Lipase Beta HCG, Quant Salicylates Urine Opiates Screen Acetaminophen Ur Barbiturates Screen Ur Phencyclidine Scrn Ur Amphetamines Screen U Benzodiazepines Scrn Urine Cocaine Screen U Marijuana (THC) Screen COVID-19 (JERRICA) COVID-19 Clin Com Hepatitis A IgM Ab Hep Bs Antigen Hep Bs Antibody Hep B Core Total Ab Hepatitis C Ab (EIA) 08/26/20 08/26/20 08/27/20 05:49 05:49 05:24 WBC 7.7 RBC 4.05 L Hgb 12.4 Hct 37.8 MCV 93.3 MCH 30.6 MCHC 32.8 RDW 12.0 Plt Count 193 MPV 9.5 Immature Gran % (Auto) Neut % (Auto) Lymph % (Auto) Hutch[place] % (Auto) Eos % (Auto) Baso % (Auto) Lymph # (Auto) [place] # (Auto) Eos # (Auto) Baso # (Auto) Abs Immat Gran (auto) Absolute Neuts (auto) Absolute Nucleated RBC 0.000 Nucleated RBC % (auto) 0.0 PT INR Hold Blue Top Sodium 138 Potassium 3.8 Chloride 104 Carbon Dioxide 24 Anion Gap 14 BUN 5 L Creatinine 0.73 Estim Creat Clear Calc 94.8 Estimated GFR > 60 Random Glucose 148 H Calcium 8.6 Magnesium Total Bilirubin 0.9 0.8 Direct Bilirubin 0.5 0.4 AST 97 H 89 H ALT 338 H 283 H Alkaline Phosphatase 127 H 110 Total Protein 6.5 6.0 L Albumin 3.8 3.6 Lipase Beta HCG, Quant Salicylates Urine Opiates Screen Acetaminophen Ur Barbiturates Screen Ur Phencyclidine Scrn Ur Amphetamines Screen U Benzodiazepines Scrn Urine Cocaine Screen U Marijuana (THC) Screen COVID-19 (JERRICA) COVID-19 Clin Com Hepatitis A IgM Ab Hep Bs Antigen Hep Bs Antibody Hep B Core Total Ab Hepatitis C Ab (EIA) Airway Mallampati Class: II TM Dist: >3cm Neck ROM: Full Loose/Missing/Broken Teeth: No Heart: [id number] Lungs: cta b/l Assessment and Plan Assessment Anesthesia Assessment: Anesthesia Plan Discussed and Chart Reviewed Final Anesthetic Review NPO: Yes ASA Class: II Final Preanesthetic Review: No Changes in Pt Med Stat, Meds/Allgs Chart Reviewed, Consent Obtained/Reviewed and Anes Risks/Benef Reviewed Patient Risk: Low Procedure Risk: Low Assessment/Block/Sedation in SS: Assess/Block/Sedation-SS Anesthetic Plan Anesthetic Plan: GA and Agree w/ Assess. and Plan Disposition: Standard PACU
--- NOTE | 2020-08-27 10:03 | MHC.SHP ---
Pre-Procedural Eval Section B Chief Complaint: abd pain Allergies: Allergies Allergy/AdvReac Type Severity Reaction Status Date / Time Penicillins [PENICILLINS] Allergy Unknown UNKNOWN Verified 08/27/20 08:58 Plan I have reviewed the history and physical and performed a pertinent physical examination on my patient. No changes have occurred unless specified.
--- NOTE | 2020-08-27 12:06 | W.PM.OPN ---
Operative Note Operative Note Date of Service: 08/27/20 Narrative: Preop diagnosis: Gallstones, recent common bile duct obstruction Postop diagnosis: The same, with chronic cholecystitis Procedure: Laparoscopic cholecystectomy Surgeon: Juancarlos Kumar MD certified anesthesiologist assistant: none The patient is a 39-year-old female was admitted because of abnormal liver function tests, with note of some dilatation of the common bile duct suggestive of common bile duct obstruction. She would have gallstones on an ultrasound as well on CAT scan. And a follow-up MRI done yesterday did not show any filling defect. Furthermore, her LFTs normalized. Her overall clinical picture was consistent with a passage of a gallstone to the common bile duct. I was therefore consulted. I explained to her the option of proceeding with cholecystectomy. She understood the technique of laparoscopic cholecystectomy and possible open cholecystectomy. She understood the risks including but not limited to bleeding, infections, injury to bowel, liver and bile duct, bile leak, retained stones, as well as the benefits and alternatives. She had given consent. She was brought to the operating room and placed supine on table under general anesthesia via endotracheal tube. The abdomen was prepped and draped in the usual sterile fashion. A surgical time-out was done. The patient received Cefotan 2 g IV preoperatively. I made a short incision on the skin in the supraumbilical margin using a blade 15 and this was carried down through the full-thickness of the skin and subcutaneous fat down to the fascia. The fascia was incised. The peritoneum was entered. Through this incision, a Dada port was introduced. Pneumoperitoneum was introduced to a pressure of 15 mmHg and from here on the rest of the procedure was done under vision with the laparoscope. With laparoscopic visualization I proceeded to insert a 5/12 mm port in the epigastric area below the subcostal margin. 5 mm ports were introduced through small incisions below the subcostal margin along the anterior axillary line and the midclavicular line. Graspers were placed through these working ports. The patient was placed in head-up and [id number] position I was able to apply a grasper at the fundus of the gallbladder and this was used used to retract the gallbladder cephalad. There was note of some adhesions on the anterior wall which I carefully dissected using the [place] dissector. I was then able to apply another grasper towards the pouch of the gallbladder and this was used to retract the gallbladder laterally. At this point therefore the gallbladder was being retracted in a cephalad and lateral fashion to put the area of the cystic duct on stretch. There was note of a lot of fibrous tissue in the area of the cystic duct towards the neck. I therefore had to do a lot of careful dissection using the [place] dissector to clear this area up. This part of the procedure took some time because of the presence of these fibrous bands. Eventually, I was able to carefully define the cystic duct and its confluence with the neck of the gallbladder. By doing so, I was able to achieve a critical view of the hepatocystic triangle as well. There was note of a cystic artery running alongside the cystic duct. There were no other structures seen in the area. With the cystic duct well defined at this point, I therefore applied clips with 2 clips being applied distally. The cystic duct was transected between clips. I proceeded to gently dissect through the fibrous bands as well along the hilum until was able to have a clear view of the cystic artery. I applied clips on the cystic artery and this was transected between clips as well using Endo scissors. There was note of thick bands within the hilum consisting of fibrous tissue and I had to carefully dissect this with the [place] dissector then apply clips and transect these between clips using Endo scissors to make sure that there was no significant bleeding. We then proceeded to use the electrocautery spatula to divide more of the hilum towards the interface of the gallbladder wall and the liver bed. I proceeded to then use the electrocautery spatula to incise the peritoneum of the gallbladder. Again the gallbladder peritoneum was markedly thickened likely from chronic cholecystitis. I used a combination of blunt dissection with the tip of the spatula as well as electrocautery to carefully separate the gallbladder wall from the liver bed. There was some oozing along the bed as we proceeded with dissection because of the likely chronic cholecystitis. I proceeded to continue to separate the gallbladder wall all the way to the the fundus until the entire gallbladder was completely from the liver bed I retrieved the gallbladder using an endobag through the umbilical incision. I then reinserted all ports and re-insufflated. I examined the subhepatic space. There was note of some oozing from the liver bed which I cauterized using the spatula. I copiously irrigated and suctioned the irrigant fluid. We had a tear in the gallbladder earlier from the retraction so there was some bile spillage in the area from this tear. I examined the area of dissection and there was still a small pool of what seemed to be some residual blood. I suctioned this out and irrigated. To be certain, I applied Surgicel into the area to make sure that we had good hemostasis. I observed all 4 quadrants and there was no other pathology. There was no evidence any bowel injury. I observed the subhepatic space for about 2 minutes and this remained dry without any bleeding or any bile leak Once hemostasis was confirmed, I desufflated through the port sites and removed all ports under vision with the laparoscope. The umbilical port was removed last. The fascia of the umbilical incision was closed with a [id number] Dexon 0 stitch. Skin closure was achieved on all incisions using Dexon for subcuticular sutures. Steri-Strips and dressings were applied All incisions were infiltrated with Marcaine 0.5% for postop analgesia. The procedure was then completed The patient tolerated procedure well. There were no complication noted. Initial and final counts of sponges and instruments were correct. Estimated blood loss about 75 cc The patient was extubated without difficulty and transferred to the recovery room with stable vital signs.
--- NOTE | 2020-08-27 12:17 | P.BOP_ITS ---
Brief Operative Note Date of Service: 08/27/20 Pre-op diagnosis: Gallstones, recent CBD obstruction Post-op diagnosis: same (With chronic cholecystitis) Procedure: Laparoscopic cholecystectomy Surgeon: Juancarlos Kumar MD Anesthesia: GETA Was an Medical Service Representative used for this Procedure?: No Estimated blood loss (mL): 75 Pathology: other (Gallbladder) Condition: stable Disposition: PACU
--- NOTE | 2020-08-27 14:44 | MHC.CM.PN ---
DP female 39 DX abdominal pain, r/t gallbladder. She went to OR today. DP home no services family transport. CM will follow.
--- NOTE | 2020-08-27 15:16 | PM.EVENT ---
Event Note Date of Service: 08/27/20 Event Note: Underwent uneventful laparoscopic cholecystectomy earlier Seen postop Looks comfortable although very sleepy Seems to have good pain control Stable vital signs Abdomen soft Continue pain management Advance diet as tolerated Okay to DC home tomorrow Daughter at bedside - explained plan with her
--- NOTE | 2020-08-27 15:39 | HO.PM.IMPN ---
Subjective Subjective Date of Service: 08/27/20 Interval History: Patient NPO schedule for laparoscopic cholecystectomy today, offers no acute complaints. No overnight issues. General no headache, no fever chills. CVS no chest pain, no palpitation. Respiratory no cough, no sob. Gastrointestinal no nausea, no vomiting, no abdominal pain Physical Exam Vital Signs: Vital Signs: Last Vital Signs Temp 98.0 F 08/27/20 15:14 Pulse 78 08/27/20 15:14 Resp 15 08/27/20 15:14 BP 143/84 H 08/27/20 15:14 Pulse Ox 96 08/27/20 15:14 Body Mass Index 26.5 General no acute distress. Neck no JVD. CVS regular rate rhythm, Respiratory lungs clear to auscultation, no respiratory distress Gastrointestinal abdomen soft, nontender, bowel sounds audible, no guarding , no rigidity. Extremities no edema. Neuro nonfocal Skin no rash Objective Data Current Medications Generic Name Dose Route Start Last Admin Trade Name Freq PRN Reason Stop Dose Admin Fentanyl 50 mcg 08/27/20 09:33 Fentanyl Citrate/Pf 100 Mcg/2 Ml Vial IVPUSH Q5M PRN Pain, Moderate (Pain Scale 4-6 Hydromorphone HCl 0.5 mg 08/24/20 21:16 08/27/20 02:32 Hydromorphone Hcl 0.5 Mg/0.5 Ml Syringe IVPUSH 0.5 mg Q6H PRN Administration Breakthrough Pain Hydromorphone HCl 0.5 mg 08/27/20 09:33 Hydromorphone Hcl 0.5 Mg/0.5 Ml Syringe IVPUSH Q5M PRN Pain, Severe (Pain Scale 7-10) Dextrose/Sodium Chloride 1,000 mls @ 100 mls/hr 08/24/20 21:30 08/27/20 14:00 D51/2ns IVCONT 100 mls/hr .Q10H VANI Infusion Cefotetan Disodium 2 gm/ 50 mls @ 100 mls/hr 08/27/20 08:00 08/27/20 14:23 Sodium Chloride IV Not Given PREOP@0800 VANI Promethazine HCl 12.5 mg/ 50.5 mls @ 202 mls/hr 08/27/20 09:33 Sodium Chloride IV ONCE PRN Nausea and Vomiting Lactated Ringer's 1,000 mls @ 50 mls/hr 08/27/20 09:45 08/27/20 13:14 Lr IV Infused .Q20H VANI Infusion Morphine Sulfate 2 mg 08/27/20 14:08 Morphine Sulfate 2 Mg/Ml Cartridge IVPUSH Q3H PRN Pain, Severe (Pain Scale 7-10) Ondansetron HCl 4 mg 08/24/20 21:16 Ondansetron Hcl 4 Mg/2 Ml Vial IVPUSH Q8H PRN Nausea and Vomiting Ondansetron HCl 4 mg 08/27/20 09:33 Ondansetron Hcl 4 Mg/2 Ml Vial IVPUSH ONCE PRN Nausea and Vomiting Ondansetron HCl 4 mg 08/27/20 14:08 Ondansetron Hcl 4 Mg/2 Ml Vial IVPUSH Q8H PRN Nausea and Vomiting Oxycodone HCl 10 mg 08/27/20 09:33 Oxycodone Hcl Immed Release 5 Mg Tablet PO ONCE PRN Pain, Mild (Pain Scale 1-3) Oxycodone HCl 5 mg 08/27/20 14:08 Oxycodone Hcl Immed Release 5 Mg Tablet PO Q4H PRN Pain, Moderate (Pain Scale 4-6 Senna 17.2 mg 08/24/20 21:16 Sennosides 8.6 Mg Tablet PO BEDTIME PRN Constipation Sodium Chloride 3 ml 08/25/20 00:00 08/27/20 08:50 0.9 % Sodium Chloride Flush 3 Ml Syringe IVFLUSH Not Given QSHIFT [facility] Labs CBC & Chem 7: 08/26/20 05:49 08/26/20 05:49 Assessment and Plan (1) Transaminitis: Status: Acute (2) Common bile duct (CBD) obstruction: Status: Acute (3) Cholelithiasis: Status: Acute Assessment and Plan: 39-year-old female with no significant past medical history presented to the hospital with a chief complaint of epigastric pain noted to have transaminitis and CBD diet. Admitted to the hospital for further management. Transaminitis/Cholelithiasis Due to gallbladder stone and common bile duct dilatation,Patient abdominal pain has resolved, likely passed a common bile duct stone, no nausea, no vomiting noted to have gallstones on abdomen images,MRCP showed no obstructive stones Liver enzymes trending down patient is scheduled for laparoscopic cholecystectomy today Continue IV fluids, symptomatic treatment and pain control DVT prophylaxis SCD boots
[2020-08-27] MEDS: oxyCODONE HCl Immed Release 5 MG TABLET PO (16:29)
[2020-08-28] VITALS: BP 148/70; PULSE 79; RESP 18; TEMP 36.9; O2SAT 97
[2020-08-28] MEDS: 0.9 % Sodium Chloride Flush 3 ML SYRINGE IVFLUSH ×2 (00:33→07:46)
[2020-08-28 03:06] VITALS: BP 136/62; PULSE 67; RESP 18; TEMP 36.9; O2SAT 96
[2020-08-28 07:17] VITALS: BP 141/80; PULSE 82; RESP 18; TEMP 36.2; O2SAT 97
--- NOTE | 2020-08-28 10:22 | PM.PNGS ---
Subjective Subjective Date of Service: 08/28/20 Interval history: She is tolerating a clear liquid diet and reports minimal incisional pain, day 1 post laparoscopic cholecystectomy. Physical Exam Vital Signs: Vital Signs: Last Vital Signs Temp 97.1 F 08/28/20 07:17 Pulse 82 08/28/20 07:17 Resp 18 08/28/20 07:17 BP 141/80 H 08/28/20 07:17 Pulse Ox 97 08/28/20 07:17 Body Mass Index 26.5 Const: General: cooperative, comfortable and alert GI: Other: Soft, nondistended, no significant tenderness, dressings dry and intact with slight staining Progress Note: A&P Assessment and plan (1) Cholelithiasis: Status: Acute Assessment and Plan: She is doing well day 1 post laparoscopic cholecystectomy. Diet is to be advanced to regular. If she tolerates this, discharge later today would be appropriate from surgical perspective. She is not requiring any narcotic pain medication. We discussed use of acetaminophen as needed for pain. Return to work in 2 weeks is anticipated. We discussed this as well. She will follow up with Dr. Kumar in about 2 weeks. Fall Risk Details Current Medications: Current Medications Generic Name Dose Route Start Last Admin Trade Name Freq PRN Reason Stop Dose Admin Fentanyl 50 mcg 08/27/20 09:33 Fentanyl Citrate/Pf 100 Mcg/2 Ml Vial IVPUSH Q5M PRN Pain, Moderate (Pain Scale 4-6 Cefotetan Disodium 2 gm/ 50 mls @ 100 mls/hr 08/27/20 08:00 08/28/20 07:46 Sodium Chloride IV Not Given PREOP@0800 [facility] Promethazine HCl 12.5 mg/ 50.5 mls @ 202 mls/hr 08/27/20 09:33 Sodium Chloride IV ONCE PRN Nausea and Vomiting Morphine Sulfate 2 mg 08/27/20 14:08 Morphine Sulfate 2 Mg/Ml Cartridge IVPUSH Q3H PRN Pain, Severe (Pain Scale 7-10) Ondansetron HCl 4 mg 08/24/20 21:16 Ondansetron Hcl 4 Mg/2 Ml Vial IVPUSH Q8H PRN Nausea and Vomiting Ondansetron HCl 4 mg 08/27/20 09:33 Ondansetron Hcl 4 Mg/2 Ml Vial IVPUSH ONCE PRN Nausea and Vomiting Ondansetron HCl 4 mg 08/27/20 14:08 Ondansetron Hcl 4 Mg/2 Ml Vial IVPUSH Q8H PRN Nausea and Vomiting Oxycodone HCl 10 mg 08/27/20 09:33 Oxycodone Hcl Immed Release 5 Mg Tablet PO ONCE PRN Pain, Mild (Pain Scale 1-3) Oxycodone HCl 5 mg 08/27/20 14:08 08/27/20 16:29 Oxycodone Hcl Immed Release 5 Mg Tablet PO 5 mg Q4H PRN Administration Pain, Moderate (Pain Scale 4-6 Senna 17.2 mg 08/24/20 21:16 Sennosides 8.6 Mg Tablet PO BEDTIME PRN Constipation Sodium Chloride 3 ml 08/25/20 00:00 08/28/20 07:46 0.9 % Sodium Chloride Flush 3 Ml Syringe IVFLUSH 3 ml QSHIFT VANI Administration Time Spent With Patient Time: Total time spent is greater than 50% in coordination of care (as documented) at patient's floor/unit and/or counseling patient: Time with patient: less than 15 minutes
--- NOTE | 2020-08-28 10:33 | P.DS_ITS ---
DS: Providers Provider Date of Service: 08/28/20 Date of admission: 08/24/20 21:16 Primary care physician: Samuel Mccarthy MD Consults: 08/24/20 21:16 Consult to Gastroenterology Routine Consulting Provider: Marlee Hardin Reason for consultation: Transaminitis; CBD dilated 08/26/20 08:29 Consult to General Surgery Routine Consulting Provider: Juancarlos Kumar Reason for consultation: gall stone transaminitis Has provider been notified: No DS: Diagnosis Discharge Diagnosis (1) Cholelithiasis: Status: Acute DS: Medications Discharge Medications Home Medications: Previous Rx's Medication Instructions Recorded omeprazole 20 mg PO DAILY #20 cap 08/22/20 DS: Summary Hospital Course Hospital Course: History of presenting illness Chief Complaint: Epigastric pain 39-year-old female with no significant past medical history presented to the hospital with a chief complaint of epigastric pain going on for the past few days. Patient mentioned that she has been having intermittent abdominal pain for some time but over the past 3 days she has been having increased pain. Wor sens after eating. Mention she came to the hospital about 3 days ago and subsequently sent home. Today she came back as she had very severe pain. Denies any fever chills cough. Denies any abdominal pain. Reports he has some associated nausea with the pain. Denies any COVID exposures. Denies any chest pain or palpitations. Hospital course 39-year-old female patient admitted to [facility] on 08/24/2020 due to epigastric pain, found to have elevated LFTs and abdominal ultrasound showed gallstones and common bile duct dilatation MRCP did not reveal any defect in the common bile duct, patient treated with analgesics and IV fluids, her LFTs trended down, likely patient passed common bile duct stone, subsequently patient seen by Dr. Kumar from General surgery and underwent laparoscopic cholecystectomy on 08/27/20 postprocedure patient has been doing well denies abdominal pain has not required narcotic medication, Since she is tolerating diet with no worsening abdominal pain no nausea vomiting she is being discharged home with instructions to follow-up with Dr. Kumar in 2 weeks time she has been recommended to take Tylenol for pain take low-fat diet. Time Spent with Patient Time attestation: Total time spent providing and/or coordinating discharge services: Discharge coordination time: Greater than 30 minutes Physical Exam Vital Signs: Vital Signs: Last Vital Signs Temp 97.1 F 08/28/20 07:17 Pulse 82 08/28/20 07:17 Resp 18 08/28/20 07:17 BP 141/80 H 08/28/20 07:17 Pulse Ox 97 08/28/20 07:17 Body Mass Index 26.5 General resting comfortably in no acute distress. Neck no JVD. CVS regular rate rhythm, Respiratory lungs clear to auscultation, no respiratory distress, Gastrointestinal abdomen soft, dressing dry and intact, nontender bowel sounds audible no guarding no rigidity Extremities no edema. Neuro nonfocal Skin no rash DS: Data Data Completed and Pending Pending studies at discharge: Pending at discharge 08/27/20 10:58 Surgical [PTH] Routine Discharge Plan Discharge Patient Disposition: Home, Self-Care Discharge Diagnosis: Cholelithiasis Transaminitis Referrals: Samuel Mccarthy MD [Primary Care Provider] - 1 Week Discharge Medications: Continued omeprazole 20 mg capsule,delayed release(DR/EC) 20 mg PO DAILY Qty: 20 RF: 0 Discharge Orders: Discharge Order (Routine); Ordered 08/28/20 Ordered By: Eulogio Johnson Diet: low fat, low cholesterol Activity on Discharge: As tolerated Stand Alone Forms: Patient Portal Discharge page, Work/School Release Activity Restrictions/Additional Instructions: You may remove your outer bandages and may shower beginning in the evening on 08/28/2020. Try to leave the small white tapes in place over the incisions. Do not be concerned if they fall off. Pat the incision areas dry after showering. Care Plan Goals: Continue home medication, take low-fat diet Health Concerns: You had cholecystectomy due to gallbladder stones outpatient follow-up with Dr. Kumar in 2 weeks, take Tylenol for pain, return to work in 2 weeks Plan of Treatment: Outpatient follow-up with surgery in 2 weeks Assessment: As per discharge summary
--- NOTE | 2020-08-28 10:46 | MHC.CM.PN ---
Patient has been medically cleared for dc to home today, no services.
[2020-08-28 11:46] VITALS: BP 137/92; PULSE 82; RESP 16; TEMP 36.2; O2SAT 97
== END 2020-08-28 14:45 | disposition home or self-care (01) | DRG 263 ==
LOC: HO.ED 20:10 → HO.EDOVER 21:23 → HO.IMC 08-25 12:12
PROVIDERS: Emergency Medicine; Physician Assistant; Student in an Organized Health Care Education/Training Program; Surgery; Admitting Provider Hospitalist; Emergency Provider Internal Medicine; PCP Internal Medicine Geriatric Medicine; Visit Provider Hospitalist
PROC: 0FT44ZZ Resection of Gallbladder, Percutaneous Endoscopic Approach (ICD-10-PCS; CPT 47562; principal; 2020-08-27 13:10)
DX: K80.11 Calculus of gallbladder with chronic cholecystitis with obstruction (principal); F17.210 Nicotine dependence, cigarettes, uncomplicated; Z20.822 Contact with and (suspected) exposure to COVID-19; Z71.6 Tobacco abuse counseling; Z88.0 Allergy status to penicillin; Z79.899 Other long term (current) drug therapy
CPT/HCPCS: 47562; 36415; 74181; 76705; 80048; 80076; 80143; 80179; 80307; 83690; 83735; 84702; 85025; 85027; 85610; 86704; 86706; 86709; 86803; 87340; 87635; 88304; 96374; 96375; 99024; 99285; J1100; J1170; J2250; J2270; J2405; J3010

== ENCOUNTER → 2020-09-16 13:54 | Outpatient (BNVA) | payer MEDICAID, SELFPAY | PROVIDERS: PCP Internal Medicine Geriatric Medicine; Referring Provider Internal Medicine Geriatric Medicine; Visit Provider Surgery | DX: Z48.815 Encounter for surgical aftercare following surgery on the digestive system (principal); Z90.49 Acquired absence of other specified parts of digestive tract | CPT/HCPCS: 99212 ==

== ENCOUNTER 2022-04-20 16:33 | Emergency (ER) | payer MEDICAID, SELFPAY ==
--- NOTE | 2022-04-20 | ECG_ITS ---
Test Reason : CHEST PAIN Blood Pressure : / mmHG Vent. Rate : 070 BPM Atrial Rate : 070 BPM P-R Int : 156 ms QRS Dur : 082 ms QT Int : 408 ms P-R-T Axes : 074 077 066 degrees QTc Int : 440 ms Normal sinus rhythm Normal ECG When compared with ECG of 04-DEC-2017 14:04, No significant change was found Referred By: Generic ED Physician Electronically Signed By:Roosevelt Moon
[2022-04-20 16:49] VITALS: BP 145/82; PULSE 79; RESP 24; TEMP 36.3; O2SAT 100; BMI 25.7
--- NOTE | 2022-04-20 16:52 | ED.GENADULT ---
HPI - General Adult General Chief complaint: Chest Pain <KETTY Roche - Last Filed: 04/24/22 12:49> Stated complaint: chest pain <KETTY Roche - Last Filed: 04/24/22 12:49> Time Seen by Provider: 04/20/22 21:18 <KETTY Roche - Last Filed: 04/24/22 12:49> Source: patient <Lazarus Duval MD - Last Filed: 04/20/22 22:22> Mode of arrival: ambulatory <Lazarus Duval MD - Last Filed: 04/20/22 22:22> Limitations: no limitations <Lazarus Duval MD - Last Filed: 04/20/22 22:22> History of Present Illness HPI narrative: History of gallstones, hypertension comes here for mid chest pain started at 16:00 lasted for few hours none now. Patient had similar pain last month. No nausea no vomiting no diaphoresis no radiation of the pain no abdominal pain patient feels under stress <Lazarus Duval MD - Last Filed: 04/20/22 22:22> Related Data Home medications: Previous Rx's Medication Instructions Recorded omeprazole 20 mg capsule,delayed 20 mg PO DAILY #20 caps 08/22/20 release pantoprazole 40 mg tablet,delayed 40 mg PO DAILY #30 tabs 04/20/22 release (Protonix) <KETTY Roche - Last Filed: 04/24/22 12:49> Allergies/adverse reactions: Allergies Allergy/AdvReac Type Severity Reaction Status Date / Time Penicillins [PENICILLINS] Allergy Unknown UNKNOWN Verified 03/30/21 08:18 <KETTY Roche - Last Filed: 04/24/22 12:49> Review of Systems Review of Systems: Yes all other systems are reviewed and are negative <Lazarus Duval MD - Last Filed: 04/20/22 22:22> PMFSH Past Medical History Medical History: Medical History Gallstones No known health problems <KETTY Roche - Last Filed: 04/24/22 12:49> Surgical History: Surgical History H/O tubal ligation <KETTY Roche - Last Filed: 04/24/22 12:49> Social History Social History: Social History Household Members: Children Housing: Apartment Do you presently have visiting nurse or other home services: No Alcohol intake: current Alcohol intake frequency: holidays/special occasions only Cigarettes Per Day: 10 Advance Directives: No Advance Directives Information Provided: Yes service: No Current occupational status: employed <KETTY Roche - Last Filed: 04/24/22 12:49> Physical Exam ED Vital Signs: Vital Signs - 24 hr 04/20/22 16:49 04/20/22 21:23 Temperature 97.3 F 98.3 F Pulse Rate 79 60 Respiratory Rate 24 H 16 Blood Pressure 145/82 H 121/79 Pulse Oximetry 100 100 Oxygen Delivery Method Room Air Room Air BMI result Body Mass Index 25.7 <KETTY Roche - Last Filed: 04/24/22 12:49> Vital Signs - 24 hr 04/20/22 16:49 04/20/22 21:23 Temperature 97.3 F 98.3 F Pulse Rate 79 60 Respiratory Rate 24 H 16 Blood Pressure 145/82 H 121/79 Pulse Oximetry 100 100 Oxygen Delivery Method Room Air Room Air BMI result Body Mass Index 25.7 <Lazarus Duval MD - Last Filed: 04/20/22 22:22> Appearance: Alert. Oriented X3. No acute distress. Eyes: No pallor or icterus ENT: Pharynx normal. Oral Mucosa moist Neck: Normal inspection. Neck supple. CVS: Normal heart rate and rhythm. Pulses normal. Respiratory: No respiratory distress. Equal air entry bilateral, no wheezing/rales/rhonchi Abdomen: Soft and nontender. Bowel sounds are present, no mass palpable, no CVA tenderness Skin: Skin warm and dry. Normal skin color. Normal skin turgor. Extremities: No lower extremity edema. No calf tenderness Neuro: Oriented X 3. No motor deficit. No sensory deficit.No cerebellar signs , cranial nerves II-XII intact <Lazarus Duval MD - Last Filed: 04/20/22 22:22> Course Course Course Narrative: RME: 41 yold female presents to the ED for chest pain that began this afternoon. EKG and troponin ordered and Covid. chest xray ordered. <KETTY Roche - Last Filed: 04/24/22 12:49> Medical Decision Making Medical Decision Making [facility] Narrative: Patient's heart score of 1 atypical chest pain normal cardiogram 2 sets of cardiac enzymes negative no chest pain at this time likely from esophageal spasm discharge patient home advised to follow up with PCP <Lazarus Duval MD - Last Filed: 04/20/22 22:22> Lab Data [facility] Lab Attestation statement: I reviewed the patient's lab results. <Lazarus Duval MD - Last Filed: 04/20/22 22:22> Result Diagrams: : 04/20/22 17:17 04/20/22 17:17 <KETTY Roche - Last Filed: 04/24/22 12:49> Labs: Lab Results 04/20/22 04/20/22 04/20/22 Range/Units 17:17 17:17 17:17 WBC 11.2 H (4.8-10.8) X10*3/uL RBC 4.69 (4.20-5.50) X10*6/uL Hgb 14.2 (12.0-16.0) g/dl Hct 40.8 (37.0-47.0) % MCV 87.0 (80.0-98.0) fL MCH 30.3 (27.0-33.0) pg MCHC 34.8 (31.0-35.0) g/dl RDW 11.9 (11.0-16.0) % Plt Count 252 (160-400) X10*3/uL MPV 9.0 L (9.4-12.3) fL Immature Gran % (Auto) 0.5 H (0.0-0.4) % Neut % (Auto) 70.5 (45-73) % Lymph % (Auto) 21.9 (20-40) % [place] % (Auto) 5.8 (2-11) % Eos % (Auto) 0.9 (0-4) % Baso % (Auto) 0.4 (0-2) % Lymph # (Auto) 2.4 (1.2-4.9) X10*3/uL [place] # (Auto) 0.7 (0.1-1.2) X10*3/uL Eos # (Auto) 0.1 (0.0-0.4) X10*3/uL Baso # (Auto) 0.0 (0.0-0.2) X10*3/uL Abs Immat Gran (auto) 0.06 H (0.00-0.03) X10*3/uL Absolute Neuts (auto) 7.9 (2.0-8.3) x10*3/uL Absolute Nucleated RBC 0.000 (0.0-0.012) X10*3/uL Nucleated RBC % (auto) 0.0 (0.0-0.2) /100WBC PT (10.0-13.1) SEC INR (0.9-1.1) APTT (26.0-36.4) SEC Sodium 138 (135-145) mmol/L Potassium 3.9 (3.3-5.1) mmol/L Chloride 105 (96-108) mmol/L Carbon Dioxide 23 (22-29) mmol/L Anion Gap 14 (12-20) BUN 8 L (9-16) mg/dL Creatinine 0.73 (0.5-1.4) mg/dL Estim Creat Clear Calc 95.1 Estimated GFR > 60 Random Glucose 147 H (60-115) mg/dL Calcium 9.4 D (8.4-10.2) mg/dL Total Bilirubin 0.6 (0.0-1.0) mg/dL AST 39 H (5-31) U/L ALT 22 (0-31) U/L Alkaline Phosphatase 90 (39-117) U/L Troponin I High Sens < 3.5 (<3.5-17.0) ng/L B-Natriuretic Peptide (<100) pg/mL Total Protein 7.2 (6.5-8.0) g/dL Albumin 4.2 (3.5-5.0) g/dL Lipase 17 (8-78) U/L Influenza Type A (PCR) (Negative) Influenza Type B (PCR) (Negative) RSV RNA Qual (PCR) (Negative) SARS-CoV-2 RNA (RT-PCR) (Negative) 04/20/22 04/20/22 04/20/22 Range/Units 17:17 17:17 17:17 WBC (4.8-10.8) X10*3/uL RBC (4.20-5.50) X10*6/uL Hgb (12.0-16.0) g/dl Hct (37.0-47.0) % MCV (80.0-98.0) fL MCH (27.0-33.0) pg MCHC (31.0-35.0) g/dl RDW (11.0-16.0) % Plt Count (160-400) X10*3/uL MPV (9.4-12.3) fL Immature Gran % (Auto) (0.0-0.4) % Neut % (Auto) (45-73) % Lymph % (Auto) (20-40) % [place] % (Auto) (2-11) % Eos % (Auto) (0-4) % Baso % (Auto) (0-2) % Lymph # (Auto) (1.2-4.9) X10*3/uL [place] # (Auto) (0.1-1.2) X10*3/uL Eos # (Auto) (0.0-0.4) X10*3/uL Baso # (Auto) (0.0-0.2) X10*3/uL Abs Immat Gran (auto) (0.00-0.03) X10*3/uL Absolute Neuts (auto) (2.0-8.3) x10*3/uL Absolute Nucleated RBC (0.0-0.012) X10*3/uL Nucleated RBC % (auto) (0.0-0.2) /100WBC PT 11.8 (10.0-13.1) SEC INR 1.0 (0.9-1.1) APTT 25.7 L (26.0-36.4) SEC Sodium (135-145) mmol/L Potassium (3.3-5.1) mmol/L Chloride (96-108) mmol/L Carbon Dioxide (22-29) mmol/L Anion Gap (12-20) BUN (9-16) mg/dL Creatinine (0.5-1.4) mg/dL Estim Creat Clear Calc Estimated GFR Random Glucose (60-115) mg/dL Calcium (8.4-10.2) mg/dL Total Bilirubin (0.0-1.0) mg/dL AST (5-31) U/L ALT (0-31) U/L Alkaline Phosphatase (39-117) U/L Troponin I High Sens (<3.5-17.0) ng/L B-Natriuretic Peptide 26 (<100) pg/mL Total Protein (6.5-8.0) g/dL Albumin (3.5-5.0) g/dL Lipase (8-78) U/L Influenza Type A (PCR) NEGATIVE (Negative) Influenza Type B (PCR) NEGATIVE (Negative) RSV RNA Qual (PCR) NEGATIVE (Negative) SARS-CoV-2 RNA (RT-PCR) NEGATIVE (Negative) 04/20/22 Range/Units 20:59 WBC (4.8-10.8) X10*3/uL RBC (4.20-5.50) X10*6/uL Hgb (12.0-16.0) g/dl Hct (37.0-47.0) % MCV (80.0-98.0) fL MCH (27.0-33.0) pg MCHC (31.0-35.0) g/dl RDW (11.0-16.0) % Plt Count (160-400) X10*3/uL MPV (9.4-12.3) fL Immature Gran % (Auto) (0.0-0.4) % Neut % (Auto) (45-73) % Lymph % (Auto) (20-40) % [place] % (Auto) (2-11) % Eos % (Auto) (0-4) % Baso % (Auto) (0-2) % Lymph # (Auto) (1.2-4.9) X10*3/uL [place] # (Auto) (0.1-1.2) X10*3/uL Eos # (Auto) (0.0-0.4) X10*3/uL Baso # (Auto) (0.0-0.2) X10*3/uL Abs Immat Gran (auto) (0.00-0.03) X10*3/uL Absolute Neuts (auto) (2.0-8.3) x10*3/uL Absolute Nucleated RBC (0.0-0.012) X10*3/uL Nucleated RBC % (auto) (0.0-0.2) /100WBC PT (10.0-13.1) SEC INR (0.9-1.1) APTT (26.0-36.4) SEC Sodium (135-145) mmol/L Potassium (3.3-5.1) mmol/L Chloride (96-108) mmol/L Carbon Dioxide (22-29) mmol/L Anion Gap (12-20) BUN (9-16) mg/dL Creatinine (0.5-1.4) mg/dL Estim Creat Clear Calc Estimated GFR Random Glucose (60-115) mg/dL Calcium (8.4-10.2) mg/dL Total Bilirubin (0.0-1.0) mg/dL AST (5-31) U/L ALT (0-31) U/L Alkaline Phosphatase (39-117) U/L Troponin I High Sens < 3.5 (<3.5-17.0) ng/L B-Natriuretic Peptide (<100) pg/mL Total Protein (6.5-8.0) g/dL Albumin (3.5-5.0) g/dL Lipase (8-78) U/L Influenza Type A (PCR) (Negative) Influenza Type B (PCR) (Negative) RSV RNA Qual (PCR) (Negative) SARS-CoV-2 RNA (RT-PCR) (Negative) <KETTY Roche - Last Filed: 04/24/22 12:49> Lab Results 04/20/22 04/20/22 04/20/22 Range/Units 17:17 17:17 17:17 WBC 11.2 H (4.8-10.8) X10*3/uL RBC 4.69 (4.20-5.50) X10*6/uL Hgb 14.2 (12.0-16.0) g/dl Hct 40.8 (37.0-47.0) % MCV 87.0 (80.0-98.0) fL MCH 30.3 (27.0-33.0) pg MCHC 34.8 (31.0-35.0) g/dl RDW 11.9 (11.0-16.0) % Plt Count 252 (160-400) X10*3/uL MPV 9.0 L (9.4-12.3) fL Immature Gran % (Auto) 0.5 H (0.0-0.4) % Neut % (Auto) 70.5 (45-73) % Lymph % (Auto) 21.9 (20-40) % [place] % (Auto) 5.8 (2-11) % Eos % (Auto) 0.9 (0-4) % Baso % (Auto) 0.4 (0-2) % Lymph # (Auto) 2.4 (1.2-4.9) X10*3/uL [place] # (Auto) 0.7 (0.1-1.2) X10*3/uL Eos # (Auto) 0.1 (0.0-0.4) X10*3/uL Baso # (Auto) 0.0 (0.0-0.2) X10*3/uL Abs Immat Gran (auto) 0.06 H (0.00-0.03) X10*3/uL Absolute Neuts (auto) 7.9 (2.0-8.3) x10*3/uL Absolute Nucleated RBC 0.000 (0.0-0.012) X10*3/uL Nucleated RBC % (auto) 0.0 (0.0-0.2) /100WBC PT (10.0-13.1) SEC INR (0.9-1.1) APTT (26.0-36.4) SEC Sodium 138 (135-145) mmol/L Potassium 3.9 (3.3-5.1) mmol/L Chloride 105 (96-108) mmol/L Carbon Dioxide 23 (22-29) mmol/L Anion Gap 14 (12-20) BUN 8 L (9-16) mg/dL Creatinine 0.73 (0.5-1.4) mg/dL Estim Creat Clear Calc 95.1 Estimated GFR > 60 Random Glucose 147 H (60-115) mg/dL Calcium 9.4 D (8.4-10.2) mg/dL Total Bilirubin 0.6 (0.0-1.0) mg/dL AST 39 H (5-31) U/L ALT 22 (0-31) U/L Alkaline Phosphatase 90 (39-117) U/L Troponin I High Sens < 3.5 (<3.5-17.0) ng/L B-Natriuretic Peptide (<100) pg/mL Total Protein 7.2 (6.5-8.0) g/dL Albumin 4.2 (3.5-5.0) g/dL Lipase 17 (8-78) U/L Influenza Type A (PCR) (Negative) Influenza Type B (PCR) (Negative) RSV RNA Qual (PCR) (Negative) SARS-CoV-2 RNA (RT-PCR) (Negative) 04/20/22 04/20/22 04/20/22 Range/Units 17:17 17:17 17:17 WBC (4.8-10.8) X10*3/uL RBC (4.20-5.50) X10*6/uL Hgb (12.0-16.0) g/dl Hct (37.0-47.0) % MCV (80.0-98.0) fL MCH (27.0-33.0) pg MCHC (31.0-35.0) g/dl RDW (11.0-16.0) % Plt Count (160-400) X10*3/uL MPV (9.4-12.3) fL Immature Gran % (Auto) (0.0-0.4) % Neut % (Auto) (45-73) % Lymph % (Auto) (20-40) % [place] % (Auto) (2-11) % Eos % (Auto) (0-4) % Baso % (Auto) (0-2) % Lymph # (Auto) (1.2-4.9) X10*3/uL [place] # (Auto) (0.1-1.2) X10*3/uL Eos # (Auto) (0.0-0.4) X10*3/uL Baso # (Auto) (0.0-0.2) X10*3/uL Abs Immat Gran (auto) (0.00-0.03) X10*3/uL Absolute Neuts (auto) (2.0-8.3) x10*3/uL Absolute Nucleated RBC (0.0-0.012) X10*3/uL Nucleated RBC % (auto) (0.0-0.2) /100WBC PT 11.8 (10.0-13.1) SEC INR 1.0 (0.9-1.1) APTT 25.7 L (26.0-36.4) SEC Sodium (135-145) mmol/L Potassium (3.3-5.1) mmol/L Chloride (96-108) mmol/L Carbon Dioxide (22-29) mmol/L Anion Gap (12-20) BUN (9-16) mg/dL Creatinine (0.5-1.4) mg/dL Estim Creat Clear Calc Estimated GFR Random Glucose (60-115) mg/dL Calcium (8.4-10.2) mg/dL Total Bilirubin (0.0-1.0) mg/dL AST (5-31) U/L ALT (0-31) U/L Alkaline Phosphatase (39-117) U/L Troponin I High Sens (<3.5-17.0) ng/L B-Natriuretic Peptide 26 (<100) pg/mL Total Protein (6.5-8.0) g/dL Albumin (3.5-5.0) g/dL Lipase (8-78) U/L Influenza Type A (PCR) NEGATIVE (Negative) Influenza Type B (PCR) NEGATIVE (Negative) RSV RNA Qual (PCR) NEGATIVE (Negative) SARS-CoV-2 RNA (RT-PCR) NEGATIVE (Negative) 04/20/22 Range/Units 20:59 WBC (4.8-10.8) X10*3/uL RBC (4.20-5.50) X10*6/uL Hgb (12.0-16.0) g/dl Hct (37.0-47.0) % MCV (80.0-98.0) fL MCH (27.0-33.0) pg MCHC (31.0-35.0) g/dl RDW (11.0-16.0) % Plt Count (160-400) X10*3/uL MPV (9.4-12.3) fL Immature Gran % (Auto) (0.0-0.4) % Neut % (Auto) (45-73) % Lymph % (Auto) (20-40) % [place] % (Auto) (2-11) % Eos % (Auto) (0-4) % Baso % (Auto) (0-2) % Lymph # (Auto) (1.2-4.9) X10*3/uL [place] # (Auto) (0.1-1.2) X10*3/uL Eos # (Auto) (0.0-0.4) X10*3/uL Baso # (Auto) (0.0-0.2) X10*3/uL Abs Immat Gran (auto) (0.00-0.03) X10*3/uL Absolute Neuts (auto) (2.0-8.3) x10*3/uL Absolute Nucleated RBC (0.0-0.012) X10*3/uL Nucleated RBC % (auto) (0.0-0.2) /100WBC PT (10.0-13.1) SEC INR (0.9-1.1) APTT (26.0-36.4) SEC Sodium (135-145) mmol/L Potassium (3.3-5.1) mmol/L Chloride (96-108) mmol/L Carbon Dioxide (22-29) mmol/L Anion Gap (12-20) BUN (9-16) mg/dL Creatinine (0.5-1.4) mg/dL Estim Creat Clear Calc Estimated GFR Random Glucose (60-115) mg/dL Calcium (8.4-10.2) mg/dL Total Bilirubin (0.0-1.0) mg/dL AST (5-31) U/L ALT (0-31) U/L Alkaline Phosphatase (39-117) U/L Troponin I High Sens < 3.5 (<3.5-17.0) ng/L B-Natriuretic Peptide (<100) pg/mL Total Protein (6.5-8.0) g/dL Albumin (3.5-5.0) g/dL Lipase (8-78) U/L Influenza Type A (PCR) (Negative) Influenza Type B (PCR) (Negative) RSV RNA Qual (PCR) (Negative) SARS-CoV-2 RNA (RT-PCR) (Negative) <Lazarus Duval MD - Last Filed: 12/22/22 22:22> Independent Interpretation I performed an independent interpretation of an: EKG <Lazarus Duval MD - Last Filed: 04/20/22 22:22> Interpretation: Normal sinus rhythm heart rate 70 beats per minute normal interval normal axis no acute ischemic changes <Lazarus Duval MD - Last Filed: 04/20/22 22:22> Scores Heart Score History: -0- slightly suspicious <Lazarus Duval MD - Last Filed: 04/20/22 22:22> ECG: -0- normal <Lazarus Duval MD - Last Filed: 04/20/22 22:22> Age: -0- < or = 45 <Lazarus Duval MD - Last Filed: 04/20/22 22:22> Risk factory: -1- 1 or 2 risk factors <Lazarus Duval MD - Last Filed: 04/20/22 22:22> Troponin: -0- < or = normal limit <Lazarus Duval MD - Last Filed: 04/20/22 22:22> Score: 1 <KETTY Roche - Last Filed: 04/24/22 12:49> 1 <Lazarus Duval MD - Last Filed: 04/20/22 22:22> Risk: 1.7% <KETTY Roche - Last Filed: 04/24/22 12:49> 1.7% <Lazarus Duval MD - Last Filed: 04/20/22 22:22> Discharge Plan Discharge Clinical Impression: Chest pain <KETTY Roche - Last Filed: 04/24/22 12:49> Patient Disposition: Home, Self-Care <KETTY Roche - Last Filed: 04/24/22 12:49> Instructions: Chest Pain (ED) <KETTY Roche - Last Filed: 04/24/22 12:49> Additional Instructions: Your pain is not from the heart follow with PCP for further evaluation Continue taking Prilosec <KETTY Roche - Last Filed: 04/24/22 12:49> Prescriptions: New pantoprazole [Protonix] 40 mg tablet,delayed release (DR/EC) 40 mg PO DAILY Qty: 30 0RF No Action omeprazole 20 mg capsule,delayed release(DR/EC) 20 mg PO DAILY Qty: 20 0RF <KETTY Roche - Last Filed: 04/24/22 12:49> Interventions: ED Discharge Assessment Last Done: 04/21/22 06:56 <KETTY Roche - Last Filed: 04/24/22 12:49> Discharge Date/Time: 04/21/22 06:58 <KETTY Roche - Last Filed: 04/24/22 12:49>
[2022-04-20 17:24] LABS: MANUAL DIFF FLAG NO
[2022-04-20 17:27] LABS: Basophils Percent Auto 0.4 % (0-2); Eosinophils Absolute Auto 0.1 X10*3/uL (0.0-0.4); Eosinophils Percent Auto 0.9 % (0-4); Hematocrit 40.8 % (37.0-47.0); Hemoglobin 14.2 g/dl (12.0-16.0); Imm Gran Abs Auto 0.06 X10*3/uL (0.00-0.03); Imm Gran Pct Auto 0.5 % (0.0-0.4); Lymphocytes Absolute Auto 2.4 X10*3/uL (1.2-4.9); Lymphocytes Percent Auto 21.9 % (20-40); Mean Corpuscular HGB Conc 34.8 g/dl (31.0-35.0); Mean Corpuscular Hemoglobin 30.3 pg (27.0-33.0); Monocytes Absolute Auto 0.7 X10*3/uL (0.1-1.2); Monocytes Percent Auto 5.8 % (2-11); Neutrophils Absolute Auto 7.9 x10*3/uL (2.0-8.3); Neutrophils Percent Auto 70.5 % (45-73); Platelet Count 252 X10*3/uL (160-400); Red Blood Count 4.69 X10*6/uL (4.20-5.50); Red Cell Distribution Width 11.9 % (11.0-16.0); White Blood Count 11.2 X10*3/uL (4.8-10.8)
[2022-04-20 17:36] LABS: Prothrombin Time 11.8 SEC (10.0-13.1)
[2022-04-20 17:39] LABS: Partial Thromboplastin Time 25.7 SEC (26.0-36.4)
[2022-04-20 17:53] LABS: Alanine Aminotransferase 22 U/L (0-31); Albumin Level 4.2 g/dL (3.5-5.0); Alkaline Phosphatase 90 U/L (39-117); Anion Gap 14 (12-20); Aspartate Amino Transferase 39 U/L (5-31); Bilirubin Total 0.6 mg/dL (0.0-1.0); Blood Urea Nitrogen 8 mg/dL (9-16); Calcium 9.4 mg/dL (8.4-10.2); Carbon Dioxide 23 mmol/L (22-29); Chloride 105 mmol/L (96-108); Creatinine Clr Calc Pharmacy 95.1; Estimated Glomerular Filt Rate > 60; Glucose Random 147 mg/dL (60-115); Lipase 17 U/L (8-78); Potassium 3.9 mmol/L (3.3-5.1); Sodium 138 mmol/L (135-145); Total Protein 7.2 g/dL (6.5-8.0)
[2022-04-20 17:56] LABS: B Type Natriuretic Peptide 26 pg/mL (<100)
[2022-04-20 18:04] LABS: Influenza A PCR NEGATIVE (Negative); Influenza B PCR NEGATIVE (Negative); Resp Syncy Virus RNA Qual PCR NEGATIVE (Negative); SARS COV2 PCR INHOUSE NEGATIVE (Negative)
[2022-04-20 18:05] LABS: Troponin-I High Sensitivity < 3.5 ng/L (<3.5-17.0)
[2022-04-20 21:23] VITALS: BP 121/79; PULSE 60; RESP 16; TEMP 36.8; O2SAT 100
--- NOTE | 2022-04-20 21:26 | ED_ITS ---
HPI - Chest Pain General Source: patient
--- NOTE | 2022-04-20 21:26 | ED.CHESTPAIN ---
HPI - Chest Pain General Chief Complaint: Chest Pain Stated Complaint: chest pain Time Seen by Provider: 04/20/22 21:18 Source: patient Mode of arrival: ambulatory Limitations: no limitations History of Present Illness HPI narrative: Patient with History of gallstones status post cholecystectomy comes in for about 6 hours of mid chest pain improved at this time lab workup done in the ER showed normal troponin and normal cardiogram no radiation of the pain no shortness of breath no leg swelling or pain patient has similar pain last month patient very anxious on arrival Related Data Previous Rx's Medication Instructions Recorded omeprazole 20 mg capsule,delayed 20 mg PO DAILY #20 caps 08/22/20 release pantoprazole 40 mg tablet,delayed 40 mg PO DAILY #30 tabs 04/20/22 release (Protonix) Allergies Allergy/AdvReac Type Severity Reaction Status Date / Time Penicillins [PENICILLINS] Allergy Unknown UNKNOWN Verified 03/30/21 08:18 Review of Systems Review of Systems: Yes all other systems are reviewed and are negative [facility] Past Medical History Medical History Gallstones No known health problems Surgical History H/O tubal ligation Social History Social History Household Members: Children Housing: Apartment Do you presently have visiting nurse or other home services: No Alcohol intake: current Alcohol intake frequency: holidays/special occasions only Cigarettes Per Day: 10 Advance Directives: No Advance Directives Information Provided: Yes service: No Current occupational status: employed Physical Exam Vital Signs: Vital Signs: Last Vital Signs Temp 98.3 F 04/20/22 21:23 Pulse 60 04/20/22 21:23 Resp 16 04/20/22 21:23 BP 121/79 04/20/22 21:23 Pulse Ox 100 04/20/22 21:23 O2 Del Method 04/20/22 21:23 BMI result Body Mass Index 25.7 Appearance: Alert. Oriented X3. No acute distress. Eyes: PERRLA, No Nystagmus ENT: Pharynx normal. Oral Mucosa moist Neck: Normal inspection. Neck supple. CVS: Normal heart rate and rhythm. Pulses normal. Respiratory: No respiratory distress. Equal air entry bilateral, no wheezing/rales/rhonchi Abdomen: Soft and nontender. Bowel sounds are present, no mass palpable, no CVA tenderness Skin: Skin warm and dry. Normal skin color. Normal skin turgor. Extremities: No lower extremity edema. No calf tenderness Neuro: Oriented X 3. No motor deficit. No sensory deficit.No cerebellar signs , cranial nerves II-XII intact Medical Decision Making Medical Decision Making [facility] Narrative: Patient's heart score of 0 atypical chest pain 2 sets of troponin negative EKG normal no ischemic changes will discharge patient home currently patient does not have any chest pain Lab Data [facility] Lab Attestation statement: I reviewed the patient's lab results. Result Diagrams: 04/20/22 17:17 04/20/22 17:17 Labs: Lab Results 04/20/22 04/20/22 04/20/22 Range/Units 17:17 17:17 17:17 WBC 11.2 H (4.8-10.8) X10*3/uL RBC 4.69 (4.20-5.50) X10*6/uL Hgb 14.2 (12.0-16.0) g/dl Hct 40.8 (37.0-47.0) % MCV 87.0 (80.0-98.0) fL MCH 30.3 (27.0-33.0) pg MCHC 34.8 (31.0-35.0) g/dl RDW 11.9 (11.0-16.0) % Plt Count 252 (160-400) X10*3/uL MPV 9.0 L (9.4-12.3) fL Immature Gran % (Auto) 0.5 H (0.0-0.4) % Neut % (Auto) 70.5 (45-73) % Lymph % (Auto) 21.9 (20-40) % [place] % (Auto) 5.8 (2-11) % Eos % (Auto) 0.9 (0-4) % Baso % (Auto) 0.4 (0-2) % Lymph # (Auto) 2.4 (1.2-4.9) X10*3/uL [place] # (Auto) 0.7 (0.1-1.2) X10*3/uL Eos # (Auto) 0.1 (0.0-0.4) X10*3/uL Baso # (Auto) 0.0 (0.0-0.2) X10*3/uL Abs Immat Gran (auto) 0.06 H (0.00-0.03) X10*3/uL Absolute Neuts (auto) 7.9 (2.0-8.3) x10*3/uL Absolute Nucleated RBC 0.000 (0.0-0.012) X10*3/uL Nucleated RBC % (auto) 0.0 (0.0-0.2) /100WBC PT (10.0-13.1) SEC INR (0.9-1.1) APTT (26.0-36.4) SEC Sodium 138 (135-145) mmol/L Potassium 3.9 (3.3-5.1) mmol/L Chloride 105 (96-108) mmol/L Carbon Dioxide 23 (22-29) mmol/L Anion Gap 14 (12-20) BUN 8 L (9-16) mg/dL Creatinine 0.73 (0.5-1.4) mg/dL Estim Creat Clear Calc 95.1 Estimated GFR > 60 Random Glucose 147 H (60-115) mg/dL Calcium 9.4 D (8.4-10.2) mg/dL Total Bilirubin 0.6 (0.0-1.0) mg/dL AST 39 H (5-31) U/L ALT 22 (0-31) U/L Alkaline Phosphatase 90 (39-117) U/L Troponin I High Sens < 3.5 (<3.5-17.0) ng/L B-Natriuretic Peptide (<100) pg/mL Total Protein 7.2 (6.5-8.0) g/dL Albumin 4.2 (3.5-5.0) g/dL Lipase 17 (8-78) U/L Influenza Type A (PCR) (Negative) Influenza Type B (PCR) (Negative) RSV RNA Qual (PCR) (Negative) SARS-CoV-2 RNA (RT-PCR) (Negative) 04/20/22 04/20/22 04/20/22 Range/Units 17:17 17:17 17:17 WBC (4.8-10.8) X10*3/uL RBC (4.20-5.50) X10*6/uL Hgb (12.0-16.0) g/dl Hct (37.0-47.0) % MCV (80.0-98.0) fL MCH (27.0-33.0) pg MCHC (31.0-35.0) g/dl RDW (11.0-16.0) % Plt Count (160-400) X10*3/uL MPV (9.4-12.3) fL Immature Gran % (Auto) (0.0-0.4) % Neut % (Auto) (45-73) % Lymph % (Auto) (20-40) % [place] % (Auto) (2-11) % Eos % (Auto) (0-4) % Baso % (Auto) (0-2) % Lymph # (Auto) (1.2-4.9) X10*3/uL [place] # (Auto) (0.1-1.2) X10*3/uL Eos # (Auto) (0.0-0.4) X10*3/uL Baso # (Auto) (0.0-0.2) X10*3/uL Abs Immat Gran (auto) (0.00-0.03) X10*3/uL Absolute Neuts (auto) (2.0-8.3) x10*3/uL Absolute Nucleated RBC (0.0-0.012) X10*3/uL Nucleated RBC % (auto) (0.0-0.2) /100WBC PT 11.8 (10.0-13.1) SEC INR 1.0 (0.9-1.1) APTT 25.7 L (26.0-36.4) SEC Sodium (135-145) mmol/L Potassium (3.3-5.1) mmol/L Chloride (96-108) mmol/L Carbon Dioxide (22-29) mmol/L Anion Gap (12-20) BUN (9-16) mg/dL Creatinine (0.5-1.4) mg/dL Estim Creat Clear Calc Estimated GFR Random Glucose (60-115) mg/dL Calcium (8.4-10.2) mg/dL Total Bilirubin (0.0-1.0) mg/dL AST (5-31) U/L ALT (0-31) U/L Alkaline Phosphatase (39-117) U/L Troponin I High Sens (<3.5-17.0) ng/L B-Natriuretic Peptide 26 (<100) pg/mL Total Protein (6.5-8.0) g/dL Albumin (3.5-5.0) g/dL Lipase (8-78) U/L Influenza Type A (PCR) NEGATIVE (Negative) Influenza Type B (PCR) NEGATIVE (Negative) RSV RNA Qual (PCR) NEGATIVE (Negative) SARS-CoV-2 RNA (RT-PCR) NEGATIVE (Negative) 04/20/22 Range/Units 20:59 WBC (4.8-10.8) X10*3/uL RBC (4.20-5.50) X10*6/uL Hgb (12.0-16.0) g/dl Hct (37.0-47.0) % MCV (80.0-98.0) fL MCH (27.0-33.0) pg MCHC (31.0-35.0) g/dl RDW (11.0-16.0) % Plt Count (160-400) X10*3/uL MPV (9.4-12.3) fL Immature Gran % (Auto) (0.0-0.4) % Neut % (Auto) (45-73) % Lymph % (Auto) (20-40) % [place] % (Auto) (2-11) % Eos % (Auto) (0-4) % Baso % (Auto) (0-2) % Lymph # (Auto) (1.2-4.9) X10*3/uL [place] # (Auto) (0.1-1.2) X10*3/uL Eos # (Auto) (0.0-0.4) X10*3/uL Baso # (Auto) (0.0-0.2) X10*3/uL Abs Immat Gran (auto) (0.00-0.03) X10*3/uL Absolute Neuts (auto) (2.0-8.3) x10*3/uL Absolute Nucleated RBC (0.0-0.012) X10*3/uL Nucleated RBC % (auto) (0.0-0.2) /100WBC PT (10.0-13.1) SEC INR (0.9-1.1) APTT (26.0-36.4) SEC Sodium (135-145) mmol/L Potassium (3.3-5.1) mmol/L Chloride (96-108) mmol/L Carbon Dioxide (22-29) mmol/L Anion Gap (12-20) BUN (9-16) mg/dL Creatinine (0.5-1.4) mg/dL Estim Creat Clear Calc Estimated GFR Random Glucose (60-115) mg/dL Calcium (8.4-10.2) mg/dL Total Bilirubin (0.0-1.0) mg/dL AST (5-31) U/L ALT (0-31) U/L Alkaline Phosphatase (39-117) U/L Troponin I High Sens < 3.5 (<3.5-17.0) ng/L B-Natriuretic Peptide (<100) pg/mL Total Protein (6.5-8.0) g/dL Albumin (3.5-5.0) g/dL Lipase (8-78) U/L Influenza Type A (PCR) (Negative) Influenza Type B (PCR) (Negative) RSV RNA Qual (PCR) (Negative) SARS-CoV-2 RNA (RT-PCR) (Negative) Independent Interpretation I performed an independent interpretation of an: EKG Interpretation: Heart rate 70 beats per minute normal intervals normal axis no acute ST depression normal EKG Scores Heart Score History: -0- slightly suspicious ECG: -0- normal Age: -0- < or = 45 Risk factory: -0- no risk factors known Troponin: -0- < or = normal limit Score: 0 Risk: 1.7% Discharge Plan Discharge Clinical Impression: Chest pain Patient Disposition: Home, Self-Care Instructions: Chest Pain (ED) Additional Instructions: Your pain is not from the heart follow with PCP for further evaluation Continue taking Prilosec Prescriptions: New pantoprazole [Protonix] 40 mg tablet,delayed release (DR/EC) 40 mg PO DAILY Qty: 30 0RF No Action omeprazole 20 mg capsule,delayed release(DR/EC) 20 mg PO DAILY Qty: 20 0RF
[2022-04-20 21:29] LABS: Troponin-I High Sensitivity < 3.5 ng/L (<3.5-17.0)
--- OUTSIDE RECORDS SUMMARY | 2022-04-20 21:54 | XMS_ITS | Continuity of Care Document ---
:1980 Author Organization [facility] Address [address] [place] [address]
== END 2022-04-21 06:58 | disposition home or self-care (01) ==
PROVIDERS: Physician Assistant; Emergency Provider Internal Medicine; PCP Internal Medicine Geriatric Medicine
DX: R07.9 Chest pain, unspecified (principal); F17.210 Nicotine dependence, cigarettes, uncomplicated; Z20.822 Contact with and (suspected) exposure to COVID-19; Z98.51 Tubal ligation status
CPT/HCPCS: 0241U; 36415; 71045; 80053; 83690; 83880; 84484; 85025; 85610; 85730; 93005; 99283; 99284

== ENCOUNTER 2022-12-22 09:28 | Outpatient (REF) | payer OTHER, SELFPAY ==
[2022-12-22 11:03] LABS: MANUAL DIFF FLAG NO
[2022-12-22 11:31] LABS: Basophils Absolute Auto 0.1 X10*3/uL (0.0-0.2); Basophils Percent Auto 0.5 % (0-2); Eosinophils Absolute Auto 0.2 X10*3/uL (0.0-0.4); Eosinophils Percent Auto 1.9 % (0-4); Hematocrit 41.8 % (37.0-47.0); Hemoglobin 14.1 g/dl (12.0-16.0); Imm Gran Abs Auto 0.06 X10*3/uL (0.00-0.03); Imm Gran Pct Auto 0.5 % (0.0-0.4); Lymphocytes Absolute Auto 2.8 X10*3/uL (1.2-4.9); Lymphocytes Percent Auto 23.7 % (20-40); Mean Corpuscular HGB Conc 33.7 g/dl (31.0-35.0); Mean Corpuscular Hemoglobin 30.5 pg (27.0-33.0); Mean Corpuscular Volume 90.5 fL (80.0-98.0); Mean Platelet Volume 9.6 fL (9.4-12.3); Monocytes Absolute Auto 0.8 X10*3/uL (0.1-1.2); Monocytes Percent Auto 6.4 % (2-11); Platelet Count 271 X10*3/uL (160-400); Red Blood Count 4.62 X10*6/uL (4.20-5.50); Red Cell Distribution Width 12.2 % (11.0-16.0)
[2022-12-22 12:10] LABS: Alanine Aminotransferase 19 U/L (0-31); Albumin Level 4.3 g/dL (3.5-5.0); Alkaline Phosphatase 82 U/L (39-117); Anion Gap 10 (12-20); Aspartate Amino Transferase 17 U/L (5-31); Bilirubin Total 0.3 mg/dL (0.0-1.0); Blood Urea Nitrogen 10 mg/dL (9-16); Calcium 9.6 mg/dL (8.4-10.2); Carbon Dioxide 25 mmol/L (22-29); Chloride 105 mmol/L (96-108); Cholesterol 193 mg/dL (<200); Estimated Glomerular Filt Rate > 60; Glucose Random 175 mg/dL (60-115); HDL Cholesterol 43 mg/dL (>40); LDL Cholesterol Calculated 116 mg/dL (<100); Potassium 4.2 mmol/L (3.3-5.1); Sodium 136 mmol/L (135-145); Total Protein 7.6 g/dL (6.5-8.0); Triglycerides 173 mg/dL (<150)
[2022-12-22 13:46] LABS: CT PCR NOT DETECTED (Not Detect.); NG PCR NOT DETECTED (Not Detect.)
[2022-12-23 04:08] LABS: Syphilis Screen Nonreactive (Nonreactive)
[2022-12-23 04:12] LABS: HBS Num1 > 1000.00 mIU/mL (0-7.99); HBsAGNum1 0.33 S/CO (0.00-0.99); HIV AB/AG Nonreactive (Nonreactive); HIV Num 1 0.06 S/CO (0.00-0.99); Hepatitis B Surface Antigen Negative (Negative); ~HepC Num1 0.58 S/CO (0.00-0.79); ~Hepatitis B Surface Antibody REACTIVE (Nonreactive); ~Hepatitis C Antibody Nonreactive (Nonreactive)
== END 2022-12-22 09:29 | disposition home or self-care (01) ==
LOC: HO.HHCL 09:28
PROVIDERS: Visit Provider Internal Medicine Geriatric Medicine
DX: Z00.00 Encounter for general adult medical examination without abnormal findings (principal); Z13.220 Encounter for screening for lipoid disorders; Z13.1 Encounter for screening for diabetes mellitus; Z11.3 Encounter for screening for infections with a predominantly sexual mode of transmission; Z11.4 Encounter for screening for human immunodeficiency virus [HIV]; G43.909 Migraine, unspecified, not intractable, without status migrainosus
CPT/HCPCS: 0353U; 80053; 80061; 85025; 86706; 86780; 86803; 87340; 87389

== ENCOUNTER 2023-01-08 09:58 | Outpatient (REF) | payer MEDICAID, SELFPAY ==
[2023-01-08 12:05] LABS: Estimated Average Glucose 157 mg/dL; Hemoglobin A1c % 7.1 % (<6.0)
== END 2023-01-08 09:59 | disposition home or self-care (01) ==
LOC: HO.HHCL 09:58
PROVIDERS: Visit Provider Internal Medicine Geriatric Medicine
DX: Z13.89 Encounter for screening for other disorder (principal)
CPT/HCPCS: 36415; 83036

== ENCOUNTER 2023-11-12 11:07 | Outpatient (REF) | payer MEDICAID, SELFPAY ==
[2023-11-12 13:19] LABS: Appearance Urine Clear; Color Urine Yellow; Glucose Urine UA Negative (Negative); Leukocyte Esterase Urine Moderate (2+) (Negative); Nitrite Urine Negative (Negative); Specific Gravity - Urine 1.025 (1.005-1.025); UMIC TRIGGER UACC YES; Urine Blood Trace (Negative); Urine Ketones Trace mg/dL (Negative); Urine Protein Negative (Neg-Trace)
[2023-11-12 13:27] LABS: Bacteria Urine 1+ (None Seen); Hyaline Casts Urine 0-2 /LPF (0-2); RBC Urine 0-2 /HPF (0-2); Squamous Epithelial Cell Urine 0-2 /HPF (0-2); UACC Culture Trigger YES
[2023-11-12 13:38] LABS: Estimated Average Glucose 163 mg/dL; Hemoglobin A1c % 7.3 % (<6.0)
[2023-11-12 13:56] LABS: Alanine Aminotransferase 11 U/L (0-31); Albumin Level 4.2 g/dL (3.5-5.0); Alkaline Phosphatase 77 U/L (39-117); Anion Gap 14 (12-20); Aspartate Amino Transferase 12 U/L (5-31); Bilirubin Total 0.3 mg/dL (0.0-1.0); Blood Urea Nitrogen 12 mg/dL (9-16); Calcium 8.8 mg/dL (8.4-10.2); Carbon Dioxide 25 mmol/L (22-29); Chloride 103 mmol/L (96-108); Cholesterol 196 mg/dL (<200); Estimated Glomerular Filt Rate > 60; Glucose Random 181 mg/dL (60-115); HDL Cholesterol 44 mg/dL (>40); LDL Cholesterol Calculated 118 mg/dL (<100); Potassium 3.9 mmol/L (3.3-5.1); Sodium 138 mmol/L (135-145); Total Protein 7.3 g/dL (6.5-8.0); Triglycerides 173 mg/dL (<150)
== END 2023-11-12 11:08 | disposition home or self-care (01) ==
LOC: HO.HHCL 11:07
PROVIDERS: Visit Provider Nurse Practitioner Family
DX: E11.00 Type 2 diabetes mellitus with hyperosmolarity without nonketotic hyperglycemic-hyperosmolar coma (NKHHC) (principal)
CPT/HCPCS: 36415; 80053; 80061; 81001; 83036; 87086

== ENCOUNTER 2023-12-14 14:13 | Outpatient (REF) | payer MEDICAID, SELFPAY ==
[2023-12-14 16:05] LABS: MANUAL DIFF FLAG NO
[2023-12-14 16:10] LABS: Basophils Absolute Auto 0.1 X10*3/uL (0.0-0.2); Basophils Percent Auto 0.6 % (0-2); Eosinophils Absolute Auto 0.3 X10*3/uL (0.0-0.4); Hematocrit 41.4 % (37.0-47.0); Imm Gran Abs Auto 0.05 X10*3/uL (0.00-0.03); Imm Gran Pct Auto 0.5 % (0.0-0.4); Lymphocytes Percent Auto 18.4 % (20-40); Mean Corpuscular HGB Conc 33.8 g/dl (31.0-35.0); Mean Corpuscular Hemoglobin 30.3 pg (27.0-33.0); Mean Corpuscular Volume 89.6 fL (80.0-98.0); Mean Platelet Volume 9.6 fL (9.4-12.3); Monocytes Absolute Auto 0.7 X10*3/uL (0.1-1.2); Neutrophils Absolute Auto 7.8 x10*3/uL (2.0-8.3); Neutrophils Percent Auto 71.5 % (45-73); Platelet Count 295 X10*3/uL (160-400); Red Blood Count 4.62 X10*6/uL (4.20-5.50); Red Cell Distribution Width 12.2 % (11.0-16.0)
[2023-12-14 16:28] LABS: Rheumatoid Factor < 13.0 IU/mL (<15.0)
[2023-12-14 16:30] LABS: Alanine Aminotransferase 12 U/L (0-31); Albumin Level 4.5 g/dL (3.5-5.0); Alkaline Phosphatase 81 U/L (39-117); Anion Gap 12 (12-20); Aspartate Amino Transferase 14 U/L (5-31); Bilirubin Total 0.5 mg/dL (0.0-1.0); Blood Urea Nitrogen 12 mg/dL (9-16); C Reactive Protein 0.15 mg/dL (< or = 0.50); Calcium 9.9 mg/dL (8.4-10.2); Carbon Dioxide 27 mmol/L (22-29); Chloride 104 mmol/L (96-108); Estimated Glomerular Filt Rate > 60; Glucose Random 165 mg/dL (60-115); Potassium 4.2 mmol/L (3.3-5.1); Sodium 139 mmol/L (135-145); Total Protein 7.8 g/dL (6.5-8.0)
[2023-12-14 16:43] LABS: Creatinine Urine 206.92 mg/dL; Microalbum/Creatinine Ratio Ur 7.2 ug/mg cr (<30)
[2023-12-14 17:18] LABS: Erythrocyte Sedimentation Rate 7 MM/HR (0-20)
[2023-12-18 07:24] LABS: Cyclic Citrullinated Peptide <16 UNITS
== END 2023-12-14 14:14 | disposition home or self-care (01) ==
LOC: HO.HHCL 14:13
PROVIDERS: Visit Provider Nurse Practitioner Family
DX: M25.449 Effusion, unspecified hand (principal); E11.00 Type 2 diabetes mellitus with hyperosmolarity without nonketotic hyperglycemic-hyperosmolar coma (NKHHC)
CPT/HCPCS: 36415; 80053; 82043; 82570; 85025; 85652; 86140; 86200; 86431

== ENCOUNTER 2024-06-18 10:12 | Outpatient (REF) | payer MEDICAID, SELFPAY ==
--- OUTSIDE RECORDS SUMMARY | 2024-06-18 10:44 | XMS_ITS | Encounter Summary ---
Author Organization [employer] Address [address] 7[address] [place] [address] Care Team Providers Care Mold Finisher Name Role Phone Name, Samuel IVORY Primary Care Provider [phone] Lorraine Handy NP Primary Care Provider [phone] Name, Samuel IVORY Primary Care Provider [phone] Encounter Details Date Type Department Care Team (Late st Contact Info) Description 04/05/2023 Orders Only [facility] [address] [place], [place] [phone] Melania Valerio LPN Social History Tobacco Use Types Packs/Day Years Used Date Smoking Tobacco: Every Day Cigarettes Alcohol Use Standard Drinks/Week Comments Yes 0 (1 standard drink = 0.6 oz pur e alcohol) social Depression Answer Date Recorded Patient Health Questionnaire-9 Score 0 12/22/2022 Housing Stability Answer Date Recorded What is your housing situation today? I have inez bucio 03/05/[address] you li ve. Do you have problems with any of the following? None of the above 03/05/2023 Food Insecurity Answer Date Recorded Within the past 12 months, y ou worried that your food would run out before you got money to buy more: Never True 03/05/2023 Within the past 12 months,th e food you bought just didn't last and you didn't have enough money to get more: Never True 09/2022 Transportation Answer Date Recorded In the past 12 months, has l ack of transportation kept you from medical appts, meetings, work or from getting things needed for daily living? No 03/05/2023 Utilities Answer Date Recorded In the past 12 months, has t he electric, gas, oil or water company threatened to shut off services in your home? No 03/05/2023 Depression Answer Date Recorded Patient Health Questionnaire-2 Score 0 12/22/2022 Comments Unknown Sex and Gender Information Value Date Recorded Sex Assigned at Female 02/27/2022 10:21 AM EDT Legal Sex Female 10:21 AM EDT Gender Identity Choose not to disclose 10:21 AM EDT Sexual Orientation Choose not to disclose 2021 10:21 AM EDT documented as of this encounter Plan of Treatment Upcoming Encounters Date Type Department Care Team (Late st Contact Info) Description 09/09/2024 9:30 AM EDT Office Visit [facility] [address] [place] [address] NameSamuel MD [address] [place] [address] documented as of this encounter Visit Diagnoses Not on filedocumented in this encounter Additional Health Concerns Assessment Noted Time PHQ-9 Depression Total Score: 0 12/23/19 23 8:58 AM EDT documented as of this encounter Care Teams Mold Finisher Relationship Specialty Start Date End Date Samuel Mccarthy MD [address] [place] [address] PCP - General Family Medicine 04/17/18 05/07/24 Lorraine Handy NP [address] [place] [address] PCP - General Family Medicine 05/08/24 06/17/24 NameSamuel MD [address] [place] [address] PCP - General Internal Medicine 06/18/24 documented as of this encounter
--- OUTSIDE RECORDS SUMMARY | 2024-06-18 10:44 | XMS_ITS | Clinical Summary ---
Author Organization [employer] Address [address] 7[address] [place] [address] Care Team Providers Care Deliverer Pharmacy Name Role Phone Name, Samuel IVORY Primary Care Provider [phone] Allergies Active Allergy Reactions Criticality Noted Date Comments Penicillins 04/04/2013 Medications metFORMIN, OSM, (Fortamet) 500 MG 24 hr tabletIndications:T ype 2 diabetes mellitus with hyperosmolarity without coma, unspecified whether prison insulin use (CMS/HCC) Take 1 tablet (500 mg) by mouth with breakfast and with evening meal. Do not crush, chew, or split. 180 tablet 1 4 Active lisinopril 2.5 MG tabletIndications:T ype 2 diabetes mellitus with hyperosmolarity without coma, unspecified whether ad terminal makeup operator insulin use (CMS/HCC) Take 1 tablet (2.5 mg) by mouth Once per day. 90 tablet 3 4 025 Active atorvastatin (Lipitor) 20 MG tablet Take 1 tablet (20 mg) by mouth Once per day. 90 tablet 3 4 025 Active metFORMIN XR (Glucophage-XR) 500 MG 24 hr tablet TAKE 1 TABLET BY MOUTH WITH BREAKFAST AND EVENING MEAL. DO NOT CRUSH, CHEW OR SPLIT. 60 tablet 3 4 Active metoprolol tartrate (Lopressor) 25 MG tablet TAKE 1 TABLET BY MOUTH TWICE A DAY 180 tablet 3 4 Active terbinafine (LamISIL AT) 1 % cream Apply topically 2 times daily. 40 g 1 5 025 Active Active Problems Problem Noted Date Diagnosed Date Dietary counseling 06/18/2024 Exercise counseling 06/18/2024 Leucocytosis 06/18/2024 Onychomadesis of toenail 06/18/2024 Tobacco dependence 06/18/2024 Swelling of finger joint 12/26/2023 Assessment & Plan (12/26/2023 2:48 PM EDT): Pt reports morning swelling of both hands, labs as ordered below Vertigo 11/12/2023 Assessment & Plan (11/12/2023 10:47 AM EDT): Pt requesting refill of prn meclizine Type 2 diabetes mellitus with hyperosmolarity wi thout coma 11/11/2023 Assessment & Plan (12/26/2023 2:47 PM EDT): Initiate lisinopril 2.5 mg, initiate statin, Continue metformin Assessment & Plan (11/12/2023 10:49 AM EDT): Pt with new dx of diabetes, presented to [facility] for hyperglyemic symptoms. Metfromin 500 mg BID was inititated. PT started daily and did endorse dairrhea which has since resolved. Reviewed blood sugar goals, pt prefers to not check sugars frequently, but is willing to trial increasing metformin to 1000 mg, check fasting sugars at home at least weekly. rtc in 4-6 weeks Monofilament exam completed today Will need eduardo/arb and moderate intensity statin but will first focus on glucose management Pt declines referrals to nurition and DNE at this time External hemorrhoids 12/22/2022 Migrainous vertigo 12/21/2022 Prediabetes 12/21/2022 Transient elevated blood pressure 12/21/2022 History of cholecystectomy 09/08/2020 Migraine 04/17/2018 Lumbago with sciatica 07/21/2013 Encounters Date Type Department Care Team Description 06/18/2024 9:30 AM EST Office Visit [facility] [address] [place] [phone] Lorraine Handy NP Other elevated white blood cell (WBC) count (Primary Dx); Type 2 diabetes mellitus with hyperosmolarity without coma, unspecified whether prison insulin use ([facility]); Dietary counseling; Exercise counseling; Onychomadesis of toenail; Tobacco dependence 06/18/2024 Travel 06/10/2024 Telephone [facility] [address] [place] [address] Debbie Sheffield MA Chart Prep 06/09/2024 Patient Outreach [facility] [address] [place] [address] Lorraine Handy NP Pre-visit Planning (SDOH Screening negative and Tobacco screening negative) 06/08/2024 Orders Only [facility] [address] [place] [phone] ProviderMayra MD 05/08/[address] [address] Annmarie Nj MA recall 04/09/2024 Refill [facility] [address] [place] [address] Samuel Mccarthy MD 03/20/2024 Refill [facility] [address] [place] [address] Lorraine Handy NP from Last 3 Months Immunizations Name Administration Dates Next Due Hep B, adult 01/21/2015,12/24/2014 Influenza injectable quadriv alent IIV4 with preservative 01/21/2015 Influenza injectable quadriv alent preservative free 01/30/2022,06/04/2019,04/17/2018 Tdap 04/17/2018 Varicella 12/24/2014 Social History Tobacco Use Types Packs/Day Years Used Date Smoking Tobacco: Every Day Cigarettes Passive Smoke Exposure: Current Smokeless Tobacco: Never Tobacco Cessation:Ready to Q uit: Not Asked; Counseling Given: Not Answered Alcohol Use Standard Drinks/Week Comments Yes 0 (1 standard drink = 0.6 oz pur e alcohol) social Depression Answer Date Recorded Patient Health Questionnaire-9 Score 1 06/18/2024 Patient Health Questionnaire-9 Score 1 06/18/2024 Last PHQ-9: Questionnaire Data Not on file 0 06/18/2024 Housing Stability Answer Date Recorded What is your housing situation today? I have inez bucio 06/09/[address] you li ve. Do you have problems with any of the following? None of the above 06/09/2024 Food Insecurity Answer Date Recorded Within the past 12 months, y ou worried that your food would run out before you got money to buy more: Never True 06/09/2024 Within the past 12 months,th e food you bought just didn't last and you didn't have enough money to get more: Never True 01/2025 Transportation Answer Date Recorded In the past 12 months, has l ack of transportation kept you from medical appts, meetings, work or from getting things needed for daily living? No 06/09/2024 Utilities Answer Date Recorded In the past 12 months, has t he electric, gas, oil or water company threatened to shut off services in your home? No 06/09/2024 Depression Answer Date Recorded Patient Health Questionnaire-2 Score 0 06/18/2024 Internet Access Answer Date Recorded Internet Access Q1 Yes 06/09/2024 Internet Access Q2 Not on file 06/09/2024 Comments Unknown Sex and Gender Information Value Date Recorded Sex Assigned at Female 02/27/2022 10:21 AM EDT Legal Sex Female 10:21 AM EDT Gender Identity Choose not to disclose 10:21 AM EDT Sexual Orientation Choose not to disclose 2021 10:21 AM EDT Last Filed Vital Signs Vital Sign Reading Time Taken Comments Blood Pressure 120/80 06/18/2024 9:35 AM EST Pulse 85 06/18/2024 9:35 AM EST Temperature 36.2 ??C (97.1 ??F) 06/18/2024 9:35 AM ES T Respiratory Rate 18 06/18/2024 9:35 AM EST Oxygen Saturation 99% 06/18/2024 9:35 AM EST Inhaled Oxygen Concentration - - Weight 64.9 kg (143 lb) 06/18/2024 9:35 AM EST Height 160 cm (5' 3 ) 06/18/2024 9:35 AM EST Body Mass Index 25.33 06/18/2024 9:35 AM EST Plan of Treatment Upcoming Encounters Date Type Department Care Team ([facility] st Contact Info) Description 09/09/2024 9:30 AM EDT Office Visit [facility] [address] [place] [address] Name, MD Samuel [address] [place] [address] Health Maintenance Due Date Last Done Comments Eye Exam 12/28/1989 Family Planning (PISQ) 12/28/1994 Hepatitis A Vaccines (1 of 2 - Risk 2-dose series) 12/28/1998 Pneumococcal Vaccine: Pediatrics (0 to 5 Years) and At-Risk Patients (6 to 49) Years) (1 of 2 - PCV) 12/28/1998 Hepatitis B Vaccines (3 of 3 - 19+ 3-dose series) 06/26/2015 01/21/2015, 12/24/2014 Mammogram 2019 COVID-19 Vaccine ( - season) 2023 06/20/2021, 05/23/2021 Influenza Vaccine (#1) 2023 , 06/04/2019, 04/17/2018, Additional history exists Diabetes: Hemoglobin A1C 02/12/2024 11/12/2023, 0904/2022 Diabetes: Foot Exam 11/11/2024 11/12/2023, 11/12/2023, 11/12/2023, Additional history exists Lipid Panel 11/11/2024 11/12/2023, 12/22/2022 Alcohol/Substance Use Screening 12/13/2024 12/14/2023 Diabetes: Urine Protein Screening 12/13/2024 12/14/2023 SDOH Screening 06/09/2025 06/09/2024 Depression Screening 06/18/2025 06/18/2024, 06/18/19 Tobacco Screening 06/18/2025 06/18/2024 Cervical Cancer Screening 09/19/2026 HPV/Cotest 09/19/2026 Pap Smear 09/19/2026 09/19/2021 DTaP/Tdap/Td Vaccines (2 - Td or Tdap) 04/17/2028 04/17/2018 Zoster Vaccines (1 of 2) 12/28/2029 RSV Patients and Patients Aged 60 years or older (1 - 1-dose 75+ series) 12/28/2054 HIV Screening Completed 12/22/2022 Hepatitis C Screening Completed 12/22/2022 HIB Vaccines Aged Out No longer eligi ble based on patient's age to complete this topic HPV Vaccines Aged Out No longer eligi ble based on patient's age to complete this topic IPV Vaccines Aged Out No longer eligi ble based on patient's age to complete this topic Meningococcal Vaccine Aged Out No francisco j nehemias eligible based on patient's age to complete this topic RSV under 20 months Aged Out No longe r eligible based on patient's age to complete this topic Rotavirus Vaccines Aged Out No longer eligible based on patient's age to complete this topic Procedures Procedure Name Priority Date/Time Associated Diagnosis Comments POCT GLUCOSE Routine 06/18/2024 9:37 AM EST Type 2 diabetes mellitus with hyperosmolarity without coma, unspecified whether prison insulin use (CMS/HCC) ALBUMIN, RANDOM URINE W/CREATININE Routine 12/14/2023 2:14 PM EDT Type 2 diabetes mellitus with hyperosmolarity without coma, unspecified whether prison insulin use (CMS/HCC) HEMOGLOBIN A1C Routine 11/12/2023 11:10 AM EDT Type 2 diabetes mellitus with hyperosmolarity without coma, unspecified whether prison insulin use (CMS/HCC) LIPID PANEL, STANDARD Routine 11/12/2023 11:10 AM EDT Type 2 diabetes mellitus with hyperosmolarity without coma, unspecified whether ad terminal makeup operator insulin use (CMS/HCC) HEPATITIS C ANTIBODY Routine 12/22/2022 9:33 AM EDT Screening for cholesterol level Screening for diabetes mellitus Screen for STD (sexually transmitted disease) Migraine without status migrainosus, not intractable, unspecified migraine type HIV ANTIBODY/ANTIGEN ([place] DPH) Routine 12/22/2022 9:33 AM EDT HM PAP/HPV Routine 09/19/2021 6:00 PM EDT from Last 3 Months or Most Recently Relevant to Health Maintenance Results * POCT Glucose (06/18/2024 9:37 AM EST) [facility] Signature Glucose Blood, POC 171 60 - 200 mg/dL QC Media Lot # [id number] Lot# Expiration Date [id number] Blood Capillary blood specimen / Unknown 06/18/2024 9:37 AM EST Lorraine Handy NP POINT OF CARE TEST ENTER/EDIT OR DERABLES Final Result * Albumin, Random Urine W/Creatinine (12/14/2023 2:14 PM EDT) Creatinine, Urine 206.92 mg/dL [facility] Microalbumin Urine 15.0 mg/L [facility] Microalbum Creatinine Ratio Ur 7.2 <30 ug/mg cr [facility] Comment:Albumin/Creatinine R atio Reference Ranges: Normal: < 30 ug/mg creatinine Microalbuminuria: 30 - 300 ug/mg creatinineClinical Albuminuria: > 300 ug/mg creatinine Urine (Urine, Random) 12/14/2023 2:14 PM EDT 12/14/2023 4:00 PM EDT Lorraine Handy NP LAB URINE ORDERABLES Final Resul t [facility] [address] [place] [phone] * (ABNORMAL) Hemoglobin A1c (11/12/2023 11:10 AM EDT) Hemoglobin A1c 7.3(H) <6.0 % [facility] Comment:Hemoglobin A1C Refer ence Range Adults: 4.8 - 6.0 % Non diabetic: < 6.0 % Goal: < 7.0 %Additional Action Suggested: > 8.0 %Note: Hemoglobin A1c results are invalid for patients with abnormal amounts of HbF. Blood transfusions may impact the HbA1c concentration in the patient sample. Estimated Average Glucose 163 mg/dL [facility] Comment:eAG = Estimated ave rage glucose which is %A1C expressed asaverage glucose, using the formula of the J0H-HhlrtnzNfglpxo Glucose study (ADAG), Diabetes Care, Vol.31,#8,2007 Blood Venous blood specimen / Unknown 11/12/2023 11:10 AM EDT 11/12/2023 1:10 PM EDT us Lorraine Handy GAMBRELER LAB BLOOD ORDERABLES Final Resul t Performing Organization Address [facility] Co de Phone Number [facility] [address] [place] [phone] * (ABNORMAL) Lipid Panel, Standard (11/12/2023 11:10 AM EDT) Triglycerides 173(H) <150 mg/dL [facility] Comment:Desirable Triglyceri de: less than 150 mg/dLBorderline High Triglyceride 150-199 mg/dLHigh Triglyceride: 200-499 mg/dLVery High Triglyceride: greater than or equal to 5OO mg/dL Cholesterol 196 <200 mg/dL [facility] Comment:Desirable Cholestero l: less than 200 mg/dLBorderline High Cholesterol: 200-239 mg/dLHigh Cholesterol: greater than 239 mg/dL LDL Cholesterol Calculated 118(H) <100 mg/dL [facility] Comment:Desirable LDL: less than 100 mg/dLNear Optimal/Above Optimal LDL: 110- 129 mg/dLBorderline High LDL: 130-159 mg/dLHigh LDL: 160-189 mg/dLVery High LDL: greater than or equal to 190 mg/dL HDL Cholesterol 44 >40 mg/dL [facility] Comment:Desirable HDL: great er than 40 mg/dL Note: This HDL assay may give artificially low results in patients with liver disease. Blood Venous blood specimen / Unknown 11/12/2023 11:10 AM EDT 11/12/2023 1:10 PM EDT us Lorraine Handy GAMBRELER LAB BLOOD ORDERABLES Final Resul t Performing Organization Address [facility] Co de Phone Number [facility] [address] [place] [phone] * Hepatitis C Ab (12/22/2022 9:33 AM EDT) Hepatitis C Antibody Nonreactive Nonreactive [facility] Comment:Antibodies to HCV no t detected; does not exclude early acuteHCV infection. Blood 12/22/2022 9:33 AM EDT 12/22/2022 11:00 AM EDT us Samuel Mccarthy MD LAB BLOOD ORDERABLES Final Resul t Performing Organization Address [facility] Co de Phone Number [facility] [address] [place] [phone] * HIV Ab/Ag ([facility]) (12/22/2022 9:33 AM EDT) Pathologist [facility] HIV AB/AG Nonreactive Nonreactive [facility] Comment:HIV-1 p24 Ag and/or HIV-1/HIV-2 Ab not detected.A test result that is nonreactive does not exclude thepossibility of exposure to or infection with HIV-1 and/orHIV-2. Nonreactive results in this assay for individualswith prior exposure to HIV-1 and/or HIV-2 may be due toantigen and antibody levels that are below the limit ofdetection of this assay.The [employer] Advisor HIV Ag/Ab Combo assay result andsupplemental assay results should be interpreted inconjunction with the patient's clinical presentation,history and other laboratory results. If the results areinconsistent with clinical evidence, additional testing issuggested to confirm the result. 12/22/2022 9:33 AM EDT 12/22/2022 11:00 AM EDT us Samuel Mccarthy MD LAB BLOOD ORDERABLES Final Resul t Performing Organization Address [facility]/ZIP Co de Phone Number [facility] [address] [place] [phone] * HM PAP/HPV (09/19/2021 6:00 PM EDT) Historical Provider HEALTH MAINTENANCE Final Result from Last 3 Months or Most Recently Relevant to Health Maintenance Insurance [facility] Care Teams Deliverer Pharmacy Relationship Specialty Start Date End Date Name, MD Samuel [address] [place] [phone] PCP - General Internal Medicine 06/18/24
--- OUTSIDE RECORDS SUMMARY | 2024-06-18 10:44 | XMS_ITS | Encounter Summary ---
Author Organization [employer] Address [address] [place] [address] Care Team Providers Care Evaluator Transfer Students Name Role Phone Name, Samuel IVORY Primary Care Provider [phone] Lorraine Handy NP Primary Care Provider [phone] Name, Samuel IVORY Primary Care Provider [phone] Encounter Details Date Type Department Care Team (Late st Contact Info) Description 05/01/2023 Orders Only [facility] [address] [place], [place] [phone] Melania Valerio LPN Social History Tobacco Use [...] Description 09/09/2024 9:30 AM EDT Office Visit [facility] [address] [place] [address] NameSamuel MD [address] [place] [address] documented as of this encounter Visit Diagnoses Not on filedocumented in this encounter Additional Health Concerns Assessment Noted Time PHQ-9 Depression Total Score: 0 12/23/19 23 8:58 AM EDT documented as of this encounter Care Teams Evaluator Transfer Students Relationship Specialty Start Date End Date Samuel Mccarthy MD [address] [place] [phone] PCP - General Family Medicine 04/17/18 05/07/24 Lorraine Handy NP [address] [place] [address] PCP - General Family Medicine 05/08/24 06/17/24 NameSamuel MD [address] [place] [phone] PCP - General Internal Medicine 06/18/24 documented as of this encounter
--- OUTSIDE RECORDS SUMMARY | 2024-06-18 10:44 | XMS_ITS | Encounter Summary ---
Author Organization [employer] Address [address] [place] [address] Care Team Providers Care Plumber Name Role Phone Lorraine Handy NP Primary Care Provider Reason for Visit * Reason Comments Pre-visit Planning SDOH Screening negat shira and Tobacco screening negative Encounter Details Date Type Department Care Team ([facility] st Contact Info) Description 06/09/2024 Patient Outreach [facility] [address] [place] [address] Lorraine Handy NP [address] [place] [address] Pre-visit Planning (SDOH Screening negative and Tobacco screening negative) Social History Tobacco Use Types Packs/Day Years Used Date Smoking Tobacco: Every Day Cigarettes Passive Smoke Exposure: Current Smokeless Tobacco: Never Alcohol Use Standard Drinks/Week Comments Yes 0 [...] Recorded Patient Health Questionnaire-2 Score 0 12/22/2022 Internet Access Answer Date Recorded Internet Access [...] AM EDT documented as of this encounter Progress Notes * Thuy Lopes - 06/09/2024 9:18 AM EST ISELA Hopper placed successful outbound call to patient for pre-visit planning. Patient name and confirmed. Patient confirms appt date and time, and has transportation arrangements. Biggest concern for appointment at this time is no concerns. Patient advised to bring to appointment a photo id and insurance card. Appropriate screenings completed in anticipation of appointment. Tobacco screening positive. Will need counseling. documented in this encounter Plan of Treatment Upcoming Encounters Date Type Department Care Team ([facility] st Contact Info) Description 09/09/2024 9:30 AM EDT Office Visit [facility] [address] [place] [address] Name, MD Samuel [address] [place] [address] documented as of this encounter Visit Diagnoses Not on filedocumented in this encounter Additional Health Concerns Assessment Noted Time PHQ-9 Depression Total Score: 0 12/23/19 23 8:58 AM EDT documented as of this encounter Care Teams Plumber Relationship Specialty Start Date End Date Lorraine Handy NP [address] [place] [phone] PCP - General Family Medicine 05/08/24 06/17/24 documented as of this encounter
--- OUTSIDE RECORDS SUMMARY | 2024-06-18 10:44 | XMS_ITS | Encounter Summary ---
Author Organization [employer] Address [address] [place] [address] Care Team Providers Care Veterinary Microbiologist Name Role Phone Lorraine Handy NP Primary Care Provider [phone] Reason for Visit * Reason Onset Date Comments Chart Prep 06/10/2024 Encounter Details Date Type Department Care Team ([facility] st Contact Info) Description 06/10/2024 Telephone [facility] [address] [place] [address] Debbie Sheffield MA Chart Prep Social History Tobacco Use Types Packs/Day Years [...] AM EDT documented as of this encounter Miscellaneous Notes * Telephone Encounter - Debbie Sheffield MA - 06/10/2024 3:44 PM EST Chart Prep Labs: done Images: not applicable Vaccines due: Covid, Hep B, PCV20, Flu Referrals: Not applicable Screenings: colonoscopy , mammogram , eye exam Overdue care gaps: Glucose, PHQ-9 documented in this encounter Plan of Treatment Upcoming Encounters Date Type Department Care Team (Late st Contact Info) Description 09/09/2024 9:30 AM EDT Office Visit [facility] [address] [place] [phone] Name, MD Samuel [address] [place] [address] documented as of this encounter Visit Diagnoses Not on filedocumented in this encounter Additional Health Concerns Assessment Noted Time PHQ-9 Depression Total Score: 0 12/23/19 23 8:58 AM EDT documented as of this encounter Care Teams Veterinary Microbiologist Relationship Specialty Start Date End Date Lorraine Handy NP [address] [place] [phone] PCP - General Family Medicine 05/08/24 06/17/24 documented as of this encounter
--- OUTSIDE RECORDS SUMMARY | 2024-06-18 10:44 | XMS_ITS | Encounter Summary ---
Author Organization [employer] Address [address] [place] [address] Care Team Providers Care Air Tucker Name Role Phone Name, Samuel IVORY Primary Care Provider [phone] Encounter Details Date Type Department Care Team (Latest Contact Info) Description 06/18/2024 Travel Social History Tobacco Use Types Packs/Day Years [...] Description 09/09/2024 9:30 AM EDT Office Visit [facility] MED[facility]INE [address] [place] [address] NameSamuel MD [address] [place] [address] documented as of this encounter Visit Diagnoses Not on filedocumented in this encounter Additional Health Concerns Assessment Noted Time PHQ-9 Depression Total Score: 1 06/18/19 25 9:54 AM EST documented as of this encounter Care Teams Air Tucker Relationship Specialty Start Date End Date NameSamuel MD [address] [place] [address] PCP - General Internal Medicine 06/18/24 documented as of this encounter
--- OUTSIDE RECORDS SUMMARY | 2024-06-18 10:44 | XMS_ITS | Encounter Summary ---
Author Organization [employer] Address [address] [facility] [address] [place] [address] Care Team Providers Care Emanations Analysis Technician Name Role Phone Lorraine Handy NP Primary Care Provider [phone] NameSamuel MD Primary Care Provider [phone] Encounter Details Date Type Department Care Team (Late st Contact Info) Description 06/08/2024 Orders Only [facility] MEDICINE [address] [place] [address] Provider, MD Mayra Social History Tobacco Use Types Packs/Day Years [...] Description 09/09/2024 9:30 AM EDT Office Visit [facility] MED[facility]INE [address] [place] [address] Samuel Mccarthy MD [address] [place] [address] documented as of this encounter Procedures Procedure Name Priority Date/Time Associated Diagnosis Comments HM PAP/HPV Routine 09/19/2021 6:00 PM EDT documented in this encounter Results * HM PAP/HPV (09/19/2021 6:00 PM EDT) us Historical Provider HEALTH MAINTENANCE Final Result documented in this encounter Visit Diagnoses Not on filedocumented in this encounter Additional Health Concerns Assessment Noted Time PHQ-9 Depression Total Score: 0 12/23/19 8:58 AM EDT documented as of this encounter Care Teams Emanations Analysis Technician Relationship Specialty Start Date End Date Lorraine Handy NP [address] [place] [address] PCP - General Family Medicine 05/08/24 06/17/24 Samuel Mccarthy MD [address] [place] [address] PCP - General Internal Medicine 06/18/24 documented as of this encounter
--- OUTSIDE RECORDS SUMMARY | 2024-06-18 10:44 | XMS_ITS | Clinical Summary ---
Author Organization [facility] Address [address] [place] [address] Care Team Providers Care Policy Analyst Name Role Phone Name, Samuel IVORY Primary Care Provider [phone] Surgical History Surgery Date Site/Laterality Comments OTHER SURGICAL HISTORY PROCEDURE: [place] LIG/TRNSXJ FLP TUBE ABDL/VAG APPR UNI/BI OTHER SURGICAL HISTORY 1996 Left PROCEDURE: BREAST MASS CORE BIOPSY SPCMN PATHOLGY EXAM BREAST SURGERY 1996 Left PROCEDURE: [place] UNLISTED PROCEDURE BREAST; COMMENT: neg Medical History Medical History Date Comments Anxiety state DX:Anxiety state Venereal disease 2004 DX:Venereal dis ease; COMMENT: + chlamydia Family History Medical History Relation Name Comments No Known Problems Father Diabetes Maternal Grandfather Prostate cancer Maternal Grandfather Diabetes Maternal Grandmother Diabetes Mother Hypertension Mother Breast cancer Other mat aunt No Known Problems Sister Cervical cancer Neg Hx Colon cancer Neg Hx Uterine cancer Neg Hx Relation Name Status Comments Father Alive Maternal Grandfather Maternal Grandmother Mother Alive Other mat aunt Alive Paternal Grandfather Paternal Grandmother Sister Alive Social History Tobacco Use Types Packs/Day Years Used Date Smoking Tobacco: Light Smoker Smokeless Tobacco: Never Alcohol Use Standard Drinks/Week Comments Yes 0 (1 standard drink = 0.6 oz pur e alcohol) Comments Unknown Sex and Gender Information Value Date Recorded Sex Assigned at Not on file Legal Sex Female 4:47 PM EST Gender Identity Not on file Sexual Orientation Not on file Obstetrics History Last Filed Vital Signs Vital Sign Reading Time Taken Comments Blood Pressure 116/82 09/19/2021 8:57 AM EDT Pulse 88 09/19/2021 8:57 AM EDT Temperature - - Respiratory Rate - - Oxygen Saturation - - Inhaled Oxygen Concentration - - Weight 66.7 kg (147 lb) 09/19/2021 8:57 AM EDT Height 160 cm (5' 3 ) 09/19/2021 8:57 AM EDT Body Mass Index 26.04 09/19/2021 8:57 AM EDT Plan of Treatment Health Maintenance Due Date Last Done Comments DTaP,Tdap,and Td Vaccines (1 - Tdap) 12/28/1998 Hepatitis B Vaccines (1 of 3 - 19+ 3-dose series) 12/28/1998 Pneumococcal Vaccine: Pediat rics (0 to 5 Years) and At-Risk Patients (6 to 64 Years) (1 of 2 - PCV) 12/28/1998 Depression Screening 04/09/2022 HIV Screening 04/09/2022 Hepatitis C Screening 04/09/2022 Social Influencers of Health Screening 04/09/2022 Breast Cancer Screening 10/04/2023 10/03/2021 COVID-19 Vaccine ( - 2023-2 5 season) 2023 Influenza Vaccine (#1) 2023 Cervical Cancer Screening: P ap Smear 09/19/2024 09/19/2021 HIB Vaccines Aged Out No longer eligi ble based on patient's age to complete this topic HPV Vaccines Aged Out No longer eligi ble based on patient's age to complete this topic Hepatitis A Vaccines Aged Out No long er eligible based on patient's age to complete this topic IPV Vaccines Aged Out No longer eligi ble based on patient's age to complete this topic MMR Vaccines Aged Out No longer eligi ble based on patient's age to complete this topic Meningococcal ACWY Vaccine Aged Out N o longer eligible based on patient's age to complete this topic Meningococcal B Vacine Aged Out No lo nger eligible based on patient's age to complete this topic RSV Immunization Patients Un kamille 20 months Aged Out No longer eligible b ased on patient's age to complete this topic Varicella Vaccines Aged Out No longer eligible based on patient's age to complete this topic Procedures Procedure Name Priority Date/Time Associated Diagnosis Comments SCREENING MAMMOGRAPHY BI 2-VIEW BREAST INC CAD Routine 10/03/2021 8:17 AM EDT Encounter for gynecological examination (general) (routine) without abnormal findings Encounter for other screening for malignant neoplasm of breast PAP SMEAR Routine 09/19/2021 from Last 3 Months or Most Recently Relevant to Health Maintenance Results * SCREENING MAMMOGRAPHY BI 2-VIEW BREAST INC CAD (10/03/2021 8:17 AM EDT) Anatomical Region Laterality Modality Radiographic Shellie ging 09/19/2021 10:1 2 AM EDT Narrative 10/03/2021 5:16 PM EDT This is a summary report. The complete report is available in the patient's medical record. If you cannot access the medical record, please contact the sending organization for a detailed fax or copy. Exam: Screening mammogram Findings: Digital bilateral full-field screening mammography is performed with tomosynthesis and interpreted with the aid of computer-aided detection. ??This is a baseline exam. Breast parenchyma is heterogeneously dense, limiting mammographic sensitivity. ??No suspicious mass, architectural distortion, or suspicious calcifications. Impression: No mammographic evidence of malignancy. BI-RADS 1 - negative Procedure Note Veena Valerio MD - 04/18/2022 This is a summary report. The complete report is available in thepatient's medical record. If you cannot access the medical record, pleasecontact the sending organization for a detailed fax or copy. Exam: Screening mammogram Findings: Digital bilateral full-field screening mammography is performedwith tomosynthesis and interpreted with the aid of computer-aideddetection. This is a baseline exam. Breast parenchyma is heterogeneously dense, limiting mammographicsensitivity. No suspicious mass, architectural distortion, or suspiciouscalcifications. Impression: No mammographic evidence of malignancy. BI-RADS 1 - negative Tiffanie Jarquin [facility] IMG XR PROCEDURES Final Resul t * Pap smear (09/19/2021) 09/19/2021 Narrative HISTORICAL TESTING LAB RESULTING AGENCY - 10/03/2021 4:56 PM EDT [id number] THINPREP PAP, IMAGED: NEGATIVE FOR SQUAMOUS INTRAEPITHELIAL LESION AND MALIGNANCY . ACUTE INFLAMMATORY CELLS PRESENT. NOTE: THE PAP TEST IS A SCREENING TEST WITH AN INHERENT FALSE NEGATIVE RATE. AUTOMATED PRESCREENING OF ALL LIQUID BASED SPECIMENS IS PERFORMED BY THE EPSPREP IMAGING SYSTEM UNLESS OTHERWISE STATED. KATHERINE PHILLIPS(ASCP) (CASE ELECTRONICALLY SIGNED 10 03 2021) RESULT OF APTIMA HIGH RISK HPV ASSAY: HIGH RISK HPV: ??NEGATIVE (SEROTYPES 16,18,31,33,35,39,45,51,52,56,58,59,66,68) COMPLETED ON 2021-09-20 ADEQUACY: SATISFACTORY ENDOCERVICAL/TRANSFORMATION ZONE COMPONENT PRESENT. SOURCE: THINPREP PAP HPV ANY DX: ??REFLEX 16 AND 18, CERVICAL, IMAGED CLINICAL INFORMATION: HPV ANY DIAGNOSIS. HORMONES, PAP HX 2014 NEG, LMP 08/26/2021, [Z01.419] Tiffanie DUTTA LAB CYTOLOGY ORDERABLES Final Result HISTORICAL TESTING LAB RESULTING AGENCY from Last 3 Months or Most Recently Relevant to Health Maintenance Care Teams Policy Analyst Relationship Specialty Start Date End Date Name, MD Samuel [address] Kimjenny Simmons [place] PCP - General Internal Medicine 08/06/18
--- OUTSIDE RECORDS SUMMARY | 2024-06-18 10:44 | XMS_ITS | Encounter Summary ---
Author Organization [employer] Address [address] [facility] 7t [place] [address] Care Team Providers Care Cement Mason Maintenance Name Role Phone Name, Samuel IVORY Primary Care Provider [phone] Reason for Referral * Consultation (Routine) - Pending Review Specialty Diagnoses / Procedures Referred By Natalie stoner Referred To Contact Podiatry Diagnoses Onychomadesis of toenail Lorraine Handy NP [address] [place] [address] Phone: tel: fax: Referral ID Status Reason Start Date Expiration Date Visits Requested Visits Authorized [id number] Pending Review Specialty Services Required 06/18/2024 06/18/2025 1 1 Encounter Details Date Type Department Care Team (Latest Contact Info) Description 06/18/2024 9:30 AM EST Office Visit [facility]ICINE [address] [place], [place] [phone] Lorraine Handy NP [address] [place], [place] [phone] Other elevated white blood cell (WBC) count (Primary Dx); Type 2 diabetes mellitus with hyperosmolarity without coma, unspecified whether fci insulin use ([facility]); Dietary counseling; Exercise counseling; Onychomadesis of toenail; Tobacco dependence Social History Tobacco Use Types Packs/Day Years [...] t he electric, gas, oil or water [employer] threatened to shut off services in your [...] AM EDT documented as of this encounter Last Filed Vital Signs Vital Sign Reading [...] Mass Index 25.33 06/18/2024 9:35 AM EST documented in this encounter Plan of Treatment Upcoming Encounters Date Type Department Care Team (Late st Contact Info) Description 09/09/2024 9:30 AM EDT Office Visit [facility] [address] [place] [address] Name, MD Samuel [address] [place] [address] Scheduled Orders Name Type Priority Associated Diagnoses Orde r Schedule CBC auto differential Lab Routine Other elevated white blood cell (WBC) count Expected: 06/18/2024 (Approximate), Expires: 06/18/2025 Scheduled Referrals Name Type Priority Associated Diagnoses Orde r Schedule Referral to Podiatry Outpatient Referral Routine Onychomadesis of toenail Expected: 06/18/2024 (Approximate), Expires: 06/18/2025 documented as of this encounter Procedures Procedure Name Priority Date/Time Associated Diagnosis Comments POCT GLUCOSE Routine 06/18/2024 9:37 AM EST Type 2 diabetes mellitus with hyperosmolarity without coma, unspecified whether intermediate teacher insulin use ([facility]) documented in this encounter Results * POCT Glucose (06/18/2024 9:37 AM EST) [facility] Signature Glucose Blood, POC 171 60 - 200 mg/dL QC Media Lot # [id number] Lot# Expiration Date Blood Capillary blood specimen / Unknown 06/18/2024 9:37 AM EST us Lorraine Handy NP POINT OF CARE TEST ENTER/EDIT OR DERABLES Final Result documented in this encounter Visit Diagnoses Diagnosis Other elevated white blood cell (WBC) count- Primary Type 2 diabetes mellitus with hyperosmolarity without coma, unspecified whether fci insulin use ([facility]) Dietary counseling Dietary surveillance and counseling Exercise counseling Onychomadesis of toenail Tobacco dependence Tobacco use disorder documented in this encounter Additional Health Concerns Assessment Noted Time PHQ-9 Depression Total Score: 1 06/18/19 9:54 AM EST documented as of this encounter Care Teams Cement Mason Maintenance Relationship Specialty Start Date End Date Name, MD Samuel [address] [place] [address] PCP - General Internal Medicine 06/18/24 documented as of this encounter
[2024-06-18 11:13] LABS: MANUAL DIFF FLAG NO
[2024-06-18 11:36] LABS: Basophils Percent Auto 0.4 % (0-2); Eosinophils Absolute Auto 0.1 X10*3/uL (0.0-0.4); Eosinophils Percent Auto 0.7 % (0-4); Hematocrit 41.7 % (37.0-47.0); Hemoglobin 14.2 g/dl (12.0-16.0); Imm Gran Abs Auto 0.03 X10*3/uL (0.00-0.03); Imm Gran Pct Auto 0.3 % (0.0-0.4); Lymphocytes Absolute Auto 2.1 X10*3/uL (1.2-4.9); Lymphocytes Percent Auto 22.8 % (20-40); Mean Corpuscular HGB Conc 34.1 g/dl (31.0-35.0); Mean Corpuscular Hemoglobin 30.4 pg (27.0-33.0); Mean Corpuscular Volume 89.3 fL (80.0-98.0); Mean Platelet Volume 9.9 fL (9.4-12.3); Monocytes Absolute Auto 0.6 X10*3/uL (0.1-1.2); Neutrophils Absolute Auto 6.5 x10*3/uL (2.0-8.3); Neutrophils Percent Auto 69.8 % (45-73); Platelet Count 261 X10*3/uL (160-400); Red Blood Count 4.67 X10*6/uL (4.20-5.50); Red Cell Distribution Width 12.2 % (11.0-16.0); White Blood Count 9.4 X10*3/uL (4.8-10.8)
[2024-06-18 11:44] LABS: Estimated Average Glucose 148 mg/dL; Hemoglobin A1C 189.4868 umol/L; Hemoglobin A1c % 6.8 % (<6.0); Total Hemoglobin (HGBA1C) 3694.6205 umol/L
== END 2024-06-18 10:13 | disposition home or self-care (01) ==
LOC: HO.HHCL 10:12
PROVIDERS: Visit Provider Nurse Practitioner Family
DX: D72.828 Other elevated white blood cell count (principal); E11.00 Type 2 diabetes mellitus with hyperosmolarity without nonketotic hyperglycemic-hyperosmolar coma (NKHHC)
CPT/HCPCS: 36415; 83036; 85025

== ENCOUNTER 2024-09-10 08:27 | Outpatient (REF) | payer MEDICAID, SELFPAY ==
--- OUTSIDE RECORDS SUMMARY | 2024-09-10 08:42 | XMS_ITS | Clinical Summary ---
Author Organization [address] [facility] Address [address] [place] [address] Phone Care Team Providers Care Wire Brush Operator Name Role Phone Name, Samuel IVORY Primary Care Provider [phone] Surgical History Surgery Date Site/Laterality Comments OTHER SURGICAL HISTORY PROCEDURE: [place] LIG/TRNSXJ FLP TUBE ABDL/VAG APPR UNI/BI OTHER SURGICAL HISTORY 1996 Left PROCEDURE: BREAST MASS CORE BIOPSY SPCMN PATHOLGY EXAM BREAST SURGERY 1996 Left PROCEDURE: ID UNLISTED PROCEDURE BREAST; COMMENT: neg Medical History [...] 09/19/2021 8:57 AM EDT Plan of Treatment Upcoming Encounters Date Type Department Care Team (Late st Contact Info) Description 12/08/2024 2:20 PM EDT Office Visit Obstetrics & Gynecology - [facility] [address] [place] [address] Freda Walker CNM [address] [place] [address] Health Maintenance Due Date Last Done Comments [...] Vaccine ( - 2023-2 5 season) 2023 Cervical Cancer Screening: P ap Smear 09/19/2024 09/19/2021 Influenza Vaccine (Season Ended) 2024 HIB Vaccines Aged Out No longer eligi [...] age to complete this topic Meningococcal B Vaccine Aged Out No l onger eligible based on patient's age to complete [...] malignancy. BI-RADS 1 - negative Tiffanie Jarquin CNM IMG XR PROCEDURES Final Resul t * Pap smear (09/19/2021) 09/19/2021 Narrative HISTORICAL TESTING LAB RESULTING AGENCY - 10/03/2021 4:56 PM EDT [id number] THINPREP PAP, IMAGED: NEGATIVE FOR SQUAMOUS INTRAEPITHELIAL LESION AND MALIGNANCY . ACUTE INFLAMMATORY CELLS PRESENT. NOTE: THE PAP TEST IS A SCREENING TEST WITH AN INHERENT FALSE NEGATIVE RATE. AUTOMATED PRESCREENING OF ALL LIQUID BASED SPECIMENS IS PERFORMED BY THE THINPREP IMAGING SYSTEM UNLESS OTHERWISE STATED. KATHERINE PHILLIPS(ASCP) (CASE ELECTRONICALLY SIGNED 10 03 2021) RESULT OF APTIMA HIGH RISK HPV ASSAY: HIGH RISK HPV: ??NEGATIVE (SEROTYPES 16,18,31,33,35,39,45,51,52,56,58,59,66,68) COMPLETED ON 2021-09-20 ADEQUACY: SATISFACTORY ENDOCERVICAL/TRANSFORMATION ZONE COMPONENT PRESENT. SOURCE: THINPREP PAP HPV ANY DX: ??REFLEX 16 AND 18, CERVICAL, IMAGED CLINICAL INFORMATION: HPV ANY DIAGNOSIS. HORMONES, PAP HX 2014 NEG, LMP 08/26/2021, [Z01.419] Tiffanie Jarquin [facility] LAB CYTOLOGY ORDERABLES Final Result HISTORICAL TESTING LAB RESULTING AGENCY from Last 3 Months or Most Recently Relevant to Health Maintenance Insurance [facility] Care Teams Wire Brush Operator Relationship Specialty Start Date End Date Name, MD Samuel [address] [place], [place] PCP - General Internal Medicine 08/06/18
--- OUTSIDE RECORDS SUMMARY | 2024-09-10 08:42 | XMS_ITS | Encounter Summary ---
Author Organization [employer] Address [address] [place] [address] Care Team Providers Care Cube Cutter Name Role Phone Name, Samuel IVORY Primary Care Provider [phone] Encounter Details Date Type Department Care Team (Latest Contact Info) Description 09/09/2024 Travel Social History Tobacco Use Types Packs/Day [...] Access Q2 Not on file 06/09/2024 Comments No Sex and Gender Information Value Date Recorded Sex Assigned at Female 02/27/2022 10:21 AM EDT Legal Sex Female 10:21 AM EDT Gender Identity Choose not to disclose 10:21 AM EDT Sexual Orientation Choose not to disclose 2021 10:21 AM EDT documented as of this encounter Functional Status * Over the last 2 weeks, how often have you been bothered by any of the following problems? Question Answer Date of Assessment Author Feeling nervous, anxious, or on edge 2 09/09/2024 10:13 AM BRENTT Gali Gould [place] Not being able to stop or control worrying 0 09/09/2024 10:13 AM EDT Gali Gould MA Worrying too much about different things 1 09/09/2024 10:13 AM BRENTT Gali Gould [place] Trouble relaxing 1 09/09/2024 10:13 AM BRENTT Eleonora Gould [place] Being so restless that it is hard to sit still 3 09/09/2024 10:13 AM BRENTT Gali Gould MA Becoming easily annoyed or irritable 2 09/09/2024 10:13 AM BRENTT Gali Gould [place] Feeling afraid as if something awful might happen 1 09/09/2024 10:13 AM EDT Eleonora Mack MA YOANA-7 Total Score 10 09/09/2024 10:13 AM Eleonora Hawk MA documented as of this encounter Plan of Treatment Upcoming Encounters Date Type Department Care Team (Late st Contact Info) Description 10/01/2024 2:00 PM EDT Office Visit [facility] OPTOMETRY [address] [place] [address] Carmela Martin, OD [address] [place] [address] 12/24/2024 9:45 AM EDT Office Visit [facility] MEDICINE [address] [place] [address] Name, MD Samuel [facility] [place] [address] documented as of this encounter Visit Diagnoses Not on filedocumented in this encounter Additional Health Concerns Assessment Noted Time PHQ-9 Depression Total Score: 1 06/18/19 9:54 AM EST documented as of this encounter Care Teams Cube Cutter Relationship Specialty Start Date End Date Name, [place] [address] PCP - General Internal Medicine 06/18/24 documented as of this encounter
--- OUTSIDE RECORDS SUMMARY | 2024-09-10 08:42 | XMS_ITS | Encounter Summary ---
Author Organization [employer] Address [address] [facility] 7t [place] [address] Care Team Providers Care Museum Assistant Name Role Phone Name, Samuel IVORY Primary Care Provider [phone] Reason for Visit * Reason Onset Date Comments CHART PREP 09/08/2024 Encounter Details Date Type Department Care Team ([facility] st Contact Info) Description 09/08/2024 Telephone [facility] MEDICINE [address] [place], [place] [phone] Name, MD Samuel [address] [place] [address] CHART PREP Social History Tobacco Use Types Packs/Day Years [...] encounter Miscellaneous Notes * Telephone Encounter - Stef Pickett [place] - 09/08/2024 1:32 PM EDT Chart Prep Labs: done from 06/18/24 Images: not applicable Referrals: appointment pending Podiatric referral re-fax to office. [phone]. Vaccines due: Covid Screenings: mammogram, eye exam, foot exam, and LMP Overdue care gaps: A1c, Glucose, SBIRT, YOANA-7, Disability screen, and Tobacco documented in this encounter Plan of Treatment Upcoming Encounters Date Type Department Care Team (Late st Contact Info) Description 10/01/2024 2:00 PM EDT Office Visit [facility] OPTOMETRY [address] [place] [address] Carmela Martin, BILL [address] [place] [address] 12/24/2024 9:45 AM EDT Office Visit [facility] MEDICINE [address] [place], [place] [phone] Name, MD Samuel [address] [place] [address] documented as of this encounter Visit Diagnoses Not on filedocumented in this encounter Additional Health Concerns Assessment Noted Time PHQ-9 Depression Total Score: 1 06/18/19 9:54 AM EST documented as of this encounter Care Teams Museum Assistant Relationship Specialty Start Date End Date Name, MD Samuel [address] [place] [address] PCP - General Internal Medicine 06/18/24 documented as of this encounter
--- OUTSIDE RECORDS SUMMARY | 2024-09-10 08:42 | XMS_ITS | Encounter Summary ---
Author Organization [employer] Address [address] [facility] 7t [place] [address] Care Team Providers Care Educational Speech Language Clinician Name Role Phone Name, Samuel IVORY Primary Care Provider [phone] Lorraine Handy NP Primary Care Provider [phone] Name, Samuel IVORY Primary Care Provider [phone] Encounter Details Date Type Department Care Team (Late st Contact Info) Description 05/01/2023 Orders Only [facility] [address] [place], [place] [phone] Melania Valerio LPN Social History Tobacco Use [...] Description 10/01/2024 2:00 PM EDT Office Visit [facility] OPTOMETRY [address] [place] [address] Carmela Martin, OD [address] [place] [address] 12/24/2024 9:45 AM EDT Office Visit [facility] MEDICINE [address] [place] [address] Samuel Mccarthy MD [address] [place] [address] documented as of this encounter Visit Diagnoses Not on filedocumented in this encounter Additional Health Concerns Assessment Noted Time PHQ-9 Depression Total Score: 0 12/23/19 23 8:58 AM EDT documented as of this encounter Care Teams Educational Speech Language Clinician Relationship Specialty Start Date End Date Samuel Mccarthy MD [address] [place] [address] PCP - General Family Medicine 04/17/18 05/07/24 Lorraine Handy NP [address] [place] [address] PCP - General Family Medicine 05/08/24 06/17/24 Samuel Mccarthy MD [address] [place] [address] PCP - General Internal Medicine 06/18/24 documented as of this encounter
--- OUTSIDE RECORDS SUMMARY | 2024-09-10 08:42 | XMS_ITS | Encounter Summary ---
Author Organization [employer] Address [address] [place] [address] Care Team Providers Care Scrap Separator Name Role Phone Samuel Mccarthy MD Primary Care Provider [phone] Reason for Referral * Imaging (Routine) - Authorized Specialty Diagnoses / Procedures Referred By Contac t Referred To Contact Radiology Diagnoses Encounter for screening mammogram for malignant neoplasm of breast Procedures BI Mammogram Screening Tomosynthesis Bilateral Samuel Mccarthy MD [address] [place] [address] Phone: tel: fax: [address] Phone: tel: fax: Referral ID Status Reason Start Date Expiration Date V isits Requested Visits Authorized [id number] Authorized 09/09/2024 09/09/2025 1 1 Reason for Visit * Reason Comments Annual Exam Encounter Details Date Type Department Care Team (Late st Contact Info) Description 09/09/2024 9:30 AM EDT Office Visit [facility] MEDICINE [address] [place] [address] Samuel Mccarthy MD [address] [place] [address] Type 2 diabetes mellitus with hyperglycemia, without long-term current use of insulin ([facility]) (Primary Dx); Encounter for immunization; Tobacco dependence; Encounter for screening mammogram for malignant neoplasm of breast Social History Tobacco Use Types Packs/Day Years [...] Sign Reading Time Taken Comments Blood Pressure 124/77 09/09/2024 9:32 AM EDT Pulse 76 09/09/2024 9:32 AM EDT Temperature 37.1 ??C (98.8 ??F) 09/09/2024 9:32 AM ED T Respiratory Rate 14 09/09/2024 9:32 AM EDT Oxygen Saturation 98% 09/09/2024 9:32 AM EDT Inhaled Oxygen Concentration - - Weight 65 kg (143 lb 3.2 oz) 09/09/2024 9:32 AM EDT Height 160 cm (5' 3 ) 09/09/2024 9:32 AM EDT Body Mass Index 25.37 09/09/2024 9:32 AM EDT documented in this encounter Functional Status * Over the last 2 weeks, how often have you been bothered by any of the following problems? Question Answer Date of Assessment Author Feeling nervous, anxious, or on edge 2 09/09/2024 10:13 AM EDT Gali Gould MA Not being able to stop or control worrying 0 09/09/2024 10:13 AM EDT Gali Gould MA Worrying too much about different things 1 09/09/2024 10:13 AM EDT Gali Gould MA Trouble relaxing 1 09/09/2024 10:13 AM BRENTT Eleonora Gould MA Being so restless that it is hard to sit still 3 09/09/2024 10:13 AM BRENTT Gali Gould MA Becoming easily annoyed or irritable 2 09/09/2024 10:13 AM EDT Gali Gould MA Feeling afraid as if something awful might happen 1 09/09/2024 10:13 AM EDT Eleonora Mack MA [id number] Total Score 10 09/09/2024 10:13 AM EDT Eleonora Gould MA documented as of this encounter Progress Notes * Samuel Mccarthy MD - 09/09/2024 9:30 AM EDT Subjective Patient ID: Otf Driscoll is a 43 y.o. adult who presents for Annual Exam. Patient comes for a physical exam. She is asymptomatic. She has a personal history of type 2 diabetes. She is managed with low-dose metformin 500 mg a day, lisinopril 2.5 mg a day, atorvastatin 20 mga day. She does not check her blood sugar at home. Hemoglobin A1c 7.3 today. She has a physically demanding job that she does without difficulties for the [employer]. She continues smoking cigarettes but is trying to quit. On review of health maintenance schedule she is due for evaluation with fasting blood work, she agreed with PCV 20 vaccine today, she is due for repeat mammogram. She is up-to-date with her Pap smear. She tells me she has a hard time tolerating higher dose of metformin because of GI side effects. Review of Systems Constitutional: Negative for chills and fever. HENT: Negative for sore throat. Respiratory: Negative for cough, shortness of breath and wheezing. Cardiovascular: Negative for chest pain, palpitations and leg swelling. Gastrointestinal: Negative for abdominal pain. Visit Vitals BP 124/77 (BP Location: Left arm, Patient Position: Sitting, BP Cuff Size: Adult) Pulse 76 Temp 98.8 ??F (37.1 ??C) (Temporal) Resp 14 Ht 5' 3 (1.6 m) Wt 143 lb 3.2 oz (65 kg) LMP 09/01/2024 (Approximate) SpO2 98% BMI 25.37 kg/m?? OB Status Having periods Smoking Status Every Day BSA 1.7 m?? Objective Physical Exam Constitutional: Appearance: Normal appearance. Cardiovascular: Rate and Rhythm: Normal rate and regular rhythm. Heart sounds: No murmur heard. No gallop. Pulmonary: Effort: Pulmonary effort is normal. No respiratory distress. Breath sounds: Normal breath sounds. No wheezing. Musculoskeletal: Right lower leg: No edema. Left lower leg: No edema. Neurological: Mental Status: Otf is alert. Lab Results Component Value Date HGBA1C 7.2 (A) 09/09/2024 HGBA1C 6.8 (H) 06/18/2024 HGBA1C 7.3 (H) 11/12/2023 HGBA1C 7.1 (H) 01/08/2023 Assessment/Plan Diagnoses and all orders for this visit: Type 2 diabetes mellitus with hyperglycemia, without long-term current use of insulin ([facility]) Comments: Continue metformin at the same dose, I added low-dose Jardiance to her medications. We discussed the benefits and risk of the medication. She is encouraged to call us if she has any urinary symptoms or symptoms of vaginal yeast infection. Continue current dose of LAVERNE inhibitor and statin. She is enc ouraged to stop smoking. PCV 20 vaccine today. Check fasting blood work listed below. She was prescribed glucose meter for daily use at home. She has upcoming appointment for eye exam already scheduled.Follow-up 3 months. Orders: - POCT Glucose - POCT HGB A1C - Comprehensive Metabolic Panel; Future - Lipid Panel, Standard; Future - Albumin, Random Urine W/Creatinine; Future - empagliflozin (Jardiance) 10 MG; Take 1 tablet (10 mg) by mouth Once per day. Encounter for immunization - PCV-20 VACCINE 6 wks + Tobacco dependence Encounter for screening mammogram for malignant neoplasm of breast Comments: I will refer for screening mammogram at [facility]. She is due to her mammograms at [place]. Orders: - BI Mammogram Screening Tomosynthesis Bilateral; Future Other orders - metFORMIN XR (Glucophage-XR) 500 MG 24 hr tablet; TAKE 1 TABLET BY MOUTH WITH BREAKFAST AND EVENING MEAL. DO NOT CRUSH, CHEW OR SPLIT. - FREESTYLE LITE test strip; Use to test blood sugar 1 times daily - Lancets misc; Use to test blood sugar 1 times daily - Alcohol Swabs 70 % pads; Use to test blood sugar 1 times daily - Blood Glucose Monitoring Suppl (FreeStyle [place] Lite) w/Device kit; Use to test blood sugar 1 times daily documented in this encounter Plan of Treatment Upcoming Encounters Date Type Department Care Team (Late st Contact Info) Description 10/01/2024 2:00 PM EDT Office Visit [facility] OPTOMETRY [address] [place], [place] [id number] Carmela Martin, BILL [address] [place] [address] 12/24/2024 9:45 AM EDT Office Visit [facility] MEDICINE [address] [place] [address] Name, MD Samuel [address] [place] [address] Scheduled Orders Name Type Priority Associated Diagnoses Orde r Schedule Comprehensive Metabolic Panel Lab Routine Type 2 diabetes mellitus with hyperglycemia, without long-term current use of insulin ([facility]) Expected: 09/09/2024 (Approximate), Expires: 09/09/2025 Lipid Panel, Standard Lab Routine Type 2 diabetes mellitus with hyperglycemia, without long-term current use of insulin ([facility]) Expected: 09/09/2024 (Approximate), Expires: 09/09/2025 Albumin, Random Urine W/Creatinine Lab Routine Type 2 diabetes mellitus with hyperglycemia, without long-term current use of insulin ([facility]) Expected: 09/09/2024 (Approximate), Expires: 09/09/2025 BI Mammogram Screening Tomosynthesis Bilateral Imaging Routine Encounter for screening mammogram for malignant neoplasm of breast Expected: 09/09/2024, Expires: 11/09/2025 documented as of this encounter Procedures Procedure Name Priority Date/Time Associated Diagnosis Comments POCT GLYCATED HEMOGLOBIN, TOTAL Routine 09/09/2024 9:34 AM EDT Type 2 diabetes mellitus with hyperglycemia, without long-term current use of insulin ([facility]) POCT GLUCOSE Routine 09/09/2024 9:33 AM EDT Type 2 diabetes mellitus with hyperglycemia, without long-term current use of insulin ([facility]) documented in this encounter Results * (ABNORMAL) POCT HGB A1C (09/09/2024 9:34 AM EDT) Hemoglobin A1C 7.2(A) 4.0 - 6.0 % QC Media Lot # [id number] Lot# Expiration Date [id number] Blood 09/09/2024 9:34 AM EDT us Samuel Mccarthy MD POINT OF CARE TEST ENTER/EDIT OR DERABLES Final Result * POCT Glucose (09/09/2024 9:33 AM EDT) Glucose Blood, POC 197 60 - 200 mg/dL QC Media Lot # [id number] Lot# Expiration Date [id number] Blood Capillary blood specimen / Unknown 09/09/2024 9:33 AM EDT Samuel Mccarthy MD POINT OF CARE TEST ENTER/EDIT OR DERABLES Final Result documented in this encounter Visit Diagnoses Diagnosis Type 2 diabetes mellitus with hyperglycemia, without long-term current use of insulin ([facility])- Primary Encounter for immunization Tobacco dependence Tobacco use disorder Encounter for screening mammogram for malignant neoplasm of breast documented in this encounter Additional Health Concerns Assessment Noted Time PHQ-9 Depression Total Score: 1 06/18/19 9:54 AM EST documented as of this encounter Care Teams Scrap Separator Relationship Specialty Start Date End Date Name, MD Samuel [address] [place] [address] PCP - General Internal Medicine 06/18/24 documented as of this encounter
--- OUTSIDE RECORDS SUMMARY | 2024-09-10 08:42 | XMS_ITS | Clinical Summary ---
Author Organization [employer] Address [address] [facility] [address] [place] [address] Care Team Providers Care Hot Packer Name Role Phone Name, Samuel IVORY Primary Care Provider [phone] Allergies Active Allergy Reactions Criticality Noted Date Comments Penicillins 04/04/2013 Medications lisinopril 2.5 MG tabletIndications:T ype 2 diabetes mellitus with hyperosmolarity without coma, unspecified whether care home insulin use ([facility]) Take 1 tablet (2.5 mg) by mouth Once per day. 90 tablet 3 12/14/19 24 025 Active atorvastatin (Lipitor) 20 MG tablet Take 1 tablet (20 mg) by mouth Once per day. 90 tablet 3 12/14/19 24 025 Active metoprolol tartrate (Lopressor) 25 MG tablet TAKE 1 TABLET BY MOUTH TWICE A DAY 180 tablet 3 04/09/20 24 Active metFORMIN XR (Glucophage-XR) 500 MG 24 hr tablet TAKE 1 TABLET BY MOUTH WITH BREAKFAST AND EVENING MEAL. DO NOT CRUSH, CHEW OR SPLIT. 09/10/19 25 Active empagliflozin (Jardiance) 10 MGIndications:Type 2 diabetes mellitus with hyperglycemia, without long-term current use of insulin ([facility]) Take 1 tablet (10 mg) by mouth Once per day. 30 tablet 11 09/10/19 25 026 Active FREESTYLE LITE test strip Use to test blood sugar 1 times daily 100 each 12 09/10/19 25 026 Active Lancets misc Use to test blood sugar 1 times daily 100 each 05/13/20 25 Active Alcohol Swabs 70 % pads Use to test blood sugar 1 times daily 100 each 09/10/19 25 Active Blood Glucose Monitoring Suppl (FastBookingSt[employer]rien [place] Lite) w/Device kit Use to test blood sugar 1 times daily 1 kit 09/10/19 Active metFORMIN XR (Glucophage-XR) 500 MG 24 hr tablet TAKE 1 TABLET BY MOUTH WITH BREAKFAST AND EVENING MEAL. DO NOT CRUSH, CHEW OR SPLIT. 60 tablet 3 03/20/20 24 025 Discontin ued(Thera py completed ) Active Problems Problem Noted Date Diagnosed Date Type 2 diabetes mellitus wit h hyperglycemia, without long-term current use of insulin 09/09/2024 Onychomadesis of toenail 06/18/2024 Assessment & Plan (07/21/2024 4:11 PM EDT): Topical therapy, Referral to podiatry Tobacco dependence 06/18/2024 Assessment & Plan (07/21/2024 4:12 PM EDT): Encouraged cessation External hemorrhoids 12/22/2022 Migrainous vertigo 12/21/2022 History of cholecystectomy 09/08/2020 Resolved Problems Problem Noted Date Diagnosed Date Resolved Date Dietary counseling 06/18/2024 Assessment & Plan (07/21/2024 4:12 PM EDT): Dietary Recommendations: Fruits, vegetables, whole grains, protein foods, and fat-free or low-fat dairy products are healthy choices. Eat different types of protein foods in your diet. This can include seafood, lean meats, poultry, beans, peas, lentils, nuts, seeds, soy products, and eggs. Limit foods and beverages higher in added sugars, saturated fat, and sodium. Exercise Recommendations: At least 150 minutes of moderate-intensity physical activity per week, or an equivalent combination of moderate- and vigorous-intensity activity Exercise counseling 06/18/2024 09/10/19 Leucocytosis 06/18/2024 09/09/2024 Swelling of finger joint 12/26/2023 Assessment & Plan (12/26/2023 2:48 PM EDT): Pt reports morning swelling of both hands, labs as ordered below Vertigo 11/12/2023 09/09/2024 Assessment & Plan (11/12/2023 10:47 AM EDT): Pt requesting refill of prn meclizine Type 2 diabetes mellitus without complication 11/11/1909/09/2024 Assessment & Plan (07/21/2024 4:12 PM EDT): Lab Results Component Value Date HGBA1C 6.8 (H) 06/18/2024 .tolerating current regimen Assessment & Plan (12/26/2023 2:47 PM EDT): Initiate lisinopril 2.5 mg, initiate statin, Continue metformin Assessment & Plan (11/12/2023 10:49 AM EDT): Pt with new dx of diabetes, presented to [facility] ed for hyperglyemic symptoms. Metfromin 500 mg [...] to nurition and DNE at this time Prediabetes 12/21/2022 09/09/2024 Transient elevated blood pressure 12/21/2022 09/09/2024 Migraine 04/17/2018 09/09/2024 Lumbago with sciatica 07/21/20132024 Encounters Date Type Department Care Team Description 09/09/2024 9:30 AM EDT Office Visit [facility] [address] [place] [phone] Name, MD Samuel Type 2 diabetes mellitus with hyperglycemia, without long-term current use of insulin ([facility]) (Primary Dx); Encounter for immunization; Tobacco dependence; Encounter for screening mammogram for malignant neoplasm of breast 09/09/2024 Travel 09/08/2024 Telephone [facility] [address] [place] [address] Samuel Mccarthy MD CHART PREP 09/02/2024 Patient Outreach [facility] & PEDS [address] [place] [address] Samuel Mccarthy MD Pre-visit Planning (SDOH unable to reach LVM ) 08/11/2024 Telephone [facility] [address] [place] [address] Samuel Mccarthy MD FMLA (I called the patient, regarding an application for FMLA. I reached a voicemail, and left a message asking her to return my call at ext [phone].) 07/31/2024 Telephone [facility] [address] [place] [address] Samuel Mccarthy MD FMLA (I called the patient regarding an application for FMLA, and reached a voicemail. 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 I left a message, asking her to return my call at ext [phone].) 07/24/2024 Travel 06/18/2024 9:30 AM EST Office Visit [facility] [address] [place] [address] Lorraine Handy NP Other elevated white blood cell (WBC) count (Primary Dx); Type 2 diabetes mellitus with hyperosmolarity without coma, unspecified whether care home insulin use (CMS/HCC); Dietary counseling; Exercise counseling; Onychomadesis of toenail; Tobacco dependence; Type 2 diabetes mellitus without complication, without long-term current use of insulin (CMS/HCC) 06/18/2024 Telephone [facility] [address] [place] [address] Debbie Sheffield [place] Results 06/18/2024 Travel from Last 3 Months Immunizations Immunization Administration Dates Next Due Hep B, adult 01/21/2015,12/24/2014 Influenza injectable quadriv alent IIV4 with preservative 01/21/2015 Influenza injectable quadriv alent preservative free 01/30/2022,06/04/2019,04/17/2018 Pneumococcal Conjugate PCV 20 09/09/2024 Tdap 04/17/2018 Varicella 12/24/2014 Family History Medical History Relation Name Comments Diabetes Mother Diabetes Mother's Sister Prostate cancer Paternal Grandfather Diabetes Sister Relation Name Status Comments Mother Mother's Sister Paternal Grandfather Sister Social History Tobacco Use Types Packs/Day Years [...] Mass Index 25.37 09/09/2024 9:32 AM EDT Plan of Treatment Upcoming Encounters Date Type Department Care Team (Late st Contact Info) Description 10/01/2024 2:00 PM EDT Office Visit [facility] [address] [place] [address] Tarka, Carmela, OD [address] [place] [address] 12/24/2024 9:45 AM EDT Office Visit [facility] [address] [place], [place] [phone] Name, MD Samuel [address] [place], [place] [phone] Health Maintenance Due Date Last Done Comments Eye Exam 12/28/1989 Family Planning (PISQ) 12/28/1994 Hepatitis B Vaccines (3 of 3 - 19+ 3-dose series) 06/26/2015 01/21/2015, 12/24/2014 Mammogram 2019 COVID-19 Vaccine ( season) 2023 06/20/2021, 05/23/2021 Influenza Vaccine (#1) 2023 , 06/04/2019, 04/17/2018, Additional history exists Diabetes: Foot Exam 11/11/2024 11/12/2023, 11/12/2023, 11/12/2023, Additional history exists Lipid Panel 11/11/2024 11/12/2023, 12/22/2022 Diabetes: Hemoglobin A1C 12/10/2024 025, 06/18/2024, 11/12/2023, Additional history exists Diabetes: Urine Protein Screening 12/13/2024 12/14/2023 SDOH Screening 06/09/2025 06/09/2024 Depression Screening 06/18/2025 06/18/2024, 06/18/19 Alcohol/Substance Use Screening 09/09/2025 09/09/2024 Tobacco Screening 09/09/2025 09/09/2024 Cervical Cancer Screening 09/19/2026 HPV/Cotest 09/19/2026 Pap Smear 09/19/2026 09/19/2021 DTaP/Tdap/Td Vaccines (2 - Td or Tdap) 04/17/2028 04/17/2018 Zoster Vaccines (1 of 2) 12/28/2029 RSV Patients and Patients Aged 60 years or older (1 - 1-dose 75+ series) 12/28/2054 HIV Screening Completed 12/22/2022 Hepatitis C Screening Completed 12/22/2022 Pneumococcal Vaccine: Pediatrics (0 to 5 Years) and At-Risk Patients (6 to 49) Years) Completed 09/09/2024 HIB Vaccines Aged Out No longer eligi [...] hyperglycemia, without long-term current use of insulin (CMS/HCC) POCT GLUCOSE Routine 09/09/2024 9:33 AM EDT Type 2 diabetes mellitus with hyperglycemia, without long-term current use of insulin (CMS/HCC) FUNDUS PHOTOS - OU - BOTH EYES Routine 07/29/2024 11:00 AM EDT 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 associated with type 2 diabetes mellitus (CMS/HCC) CBC WITH AUTO DIFFERENTIAL Routine 06/18/2024 10:14 AM EST Other elevated white blood cell (WBC) count HEMOGLOBIN A1C Routine 06/18/2024 10:14 AM EST Type 2 diabetes mellitus with hyperosmolarity without coma, unspecified whether care home insulin use (CMS/HCC) POCT GLUCOSE Routine 06/18/2024 9:37 AM EST Type 2 diabetes mellitus with hyperosmolarity without coma, unspecified whether cafeteria counter attendant insulin use (CMS/HCC) ALBUMIN, RANDOM URINE W/CREATININE Routine 12/14/2023 2:14 PM EDT Type 2 diabetes mellitus with hyperosmolarity without coma, unspecified whether cafeteria counter attendant insulin use (CMS/HCC) LIPID PANEL, STANDARD Routine 11/12/2023 11:10 AM EDT Type 2 diabetes mellitus with hyperosmolarity without coma, unspecified whether care home insulin use (CMS/HCC) HEPATITIS C ANTIBODY Routine 12/22/2022 9:33 AM EDT Screening for cholesterol level Screening for diabetes mellitus Screen for STD (sexually transmitted disease) Migraine without status migrainosus, not intractable, unspecified migraine type HIV ANTIBODY/ANTIGEN ([place] DPH) Routine 12/22/2022 9:33 AM EDT HM PAP/HPV Routine 09/19/2021 6:00 PM EDT from Last 3 Months or Most Recently Relevant to Health Maintenance Results * (ABNORMAL) POCT HGB A1C (09/09/2024 9:34 AM EDT) Hemoglobin A1C 7.2(A) 4.0 - 6.0 % QC Media Lot # [id number] Lot# Expiration Date [id number] Blood 09/09/2024 9:34 AM EDT us Samuel Mccarthy MD POINT OF CARE TEST ENTER/EDIT OR DERABLES Final Result * POCT Glucose (09/09/2024 9:33 AM EDT) Only the most recent of2 resultswithin the time period is included. Glucose Blood, POC 197 60 - 200 mg/dL QC Media Lot # [id number] Lot# Expiration Date [id number] Blood Capillary blood specimen / Unknown 09/09/2024 9:33 AM EDT Samuel Mccarthy MD POINT OF CARE TEST ENTER/EDIT OR DERABLES Final Result * Fundus Photos - OU - Both Eyes (07/29/2024 11:00 AM EDT) Narrative Laila Hawthorne, OD - 08/11/2024 3:59 PM EDT Right Eye Progression has no prior data. Disc findings include normal observations (0.4/0.4). Macula findings include (Isolated dot heme nasal to fovea). Vessel findings include normal observations. Periphery findings include normal observations. Left Eye Progression has no prior data. Disc findings include normal observations (0.2/0.2). Macula findings include normal observations. Vessel findings include normal observations. Periphery findings include normal observations. Notes Assessment and Plan: Mild non-proliferative diabetic retinopathy (NPDR) in the right eye. No diabetic retinopathy (DR) in the left eye. No macular edema in either eye. Will monitor at her next exam. Asymmetric optic nerve cupping right eye (OD)>left eye (OS). Will monitor at next exam. us Laila Hawthorne OD OPHTH PHOTOGRAPHY Edited Resu lt - Final * CBC auto differential (06/18/2024 10:14 AM EST) White Blood Count 9.4 4.8 - 10.8 X10*3/uL [facility] Red Blood Count 4.67 4.20 - 5.50 X10*6/uL [facility] Hemoglobin 14.2 12.0 - 16.0 g/dl [facility] Hematocrit 41.7 37.0 - 47.0 % [facility] Mean Corpuscular Volume 89.3 80.0 - 98.0 fL [facility] Mean Corpuscular Hemoglobin 30.4 27.0 - 33.0 pg [facility] Mean Corpuscular HGB Conc 34.1 31.0 - 35.0 g/dl [facility] Red Cell Distribution Width 12.2 11.0 - 16.0 % [facility] Platelet Count 261 160 - 400 X10*3/uL [facility] Mean Platelet Volume 9.9 9.4 - 12.3 fL [facility] Neutrophils Percent Auto 69.8 45 - 73 % [facility] Imm Gran Pct Auto 0.3 0.0 - 0.4 % [facility] Lymphocytes Percent Auto 22.8 20 - 40 % [facility] Monocytes Percent Auto 6.0 2 - 11 % [facility] Eosinophils Percent Auto 0.7 0 - 4 % [facility] Basophils Percent Auto 0.4 0 - 2 % [facility] NRBC Pct Auto 0.0 0.0 - 0.2 /100WBC [facility] Neutrophils Absolute Auto 6.5 2.0 - 8.3 x10*3/uL [facility] Imm Gran Abs Auto 0.03 0.00 - 0.03 X10*3/uL [facility] Lymphocytes Absolute Auto 2.1 1.2 - 4.9 X10*3/uL [facility] Monocytes Absolute Auto 0.6 0.1 - 1.2 X10*3/uL [facility] Eosinophils Absolute Auto 0.1 0.0 - 0.4 X10*3/uL [facility] Basophils Absolute Auto 0.0 0.0 - 0.2 X10*3/uL [facility] NRBC Abs Auto 0.000 0.0 - 0.012 X10*3/uL [facility] Blood Venous blood specimen / Unknown 06/18/2024 10:14 AM EST 06/18/2024 11:10 AM EST us Lorraine Handy [employer] LAB BLOOD ORDERABLES Final Resul t Performing Organization Address [facility] Co de Phone Number [facility] [address] [place] [phone] * (ABNORMAL) Hemoglobin A1c (06/18/2024 10:14 AM EST) Hemoglobin A1c 6.8(H) <6.0 % [facility] Comment:Hemoglobin A1C Refer ence Range Adults: 4.8 - 6.0 % Non diabetic: < 6.0 % Goal: < 7.0 %Additional Action Suggested: > 8.0 %Note: Hemoglobin A1c results are invalid for patients with abnormal amounts of HbF. Blood transfusions may impact the HbA1c concentration in the patient sample. Estimated Average Glucose 148 mg/dL [facility] Comment:eAG = Estimated ave rage glucose which is %A1C expressed asaverage glucose, using the formula of the X6Q-HqobhshDmcqeuk Glucose study (ADAG), Diabetes Care, Vol.31,#8,Nov. 2007 Blood Venous blood specimen / Unknown 06/18/2024 10:14 AM EST 06/18/2024 11:10 AM EST Lorraine Handy [employer] LAB BLOOD ORDERABLES Final Resul t Performing Organization Address [facility] Co de Phone Number [facility] [address] [place] [phone] * Albumin, Random Urine W/Creatinine (12/14/2023 2:14 PM EDT) Creatinine, Urine 206.92 mg/dL [facility] Microalbumin Urine 15.0 mg/L [facility] Microalbum Creatinine Ratio Ur 7.2 <30 ug/mg cr [facility] Comment:Albumin/Creatinine R at Reference Ranges: Normal: < 30 ug/mg creatinine Microalbuminuria: 30 - 300 ug/mg creatinineClinical Albuminuria: > 300 ug/mg creatinine Urine (Urine, Random) 12/14/2023 2:14 PM EDT 12/14/2023 4:00 PM EDT us Lorraine Handy NP LAB URINE ORDERABLES Final Resul t [facility] [address] [place] [phone] [phone] * (ABNORMAL) Lipid Panel, Standard (11/12/2023 11:10 AM EDT) Triglycerides 173(H) <150 mg/dL [facility] Comment:Desirable Triglyceri de: less than 150 mg/dLBorderline High Triglyceride 150-199 mg/dLHigh Triglyceride: 200-499 mg/dLVery High Triglyceride: greater than or equal to 5OO mg/dL Cholesterol 196 <200 mg/dL [facility] Comment:Desirable Cholestero l: less than 200 mg/dLBorderline High Cholesterol: 200-239 mg/dLHigh Cholesterol: greater than 239 mg/dL LDL Cholesterol Calculated 118(H) <100 mg/dL [facility] Comment:Desirable LDL: less than 100 mg/dLNear Optimal/Above Optimal LDL: 110- 129 mg/dLBorderline High LDL: 130-159 mg/dLHigh LDL: 160-189 mg/dLVery High LDL: greater than or equal to 190 mg/dL HDL Cholesterol 44 >40 mg/dL [facility] Comment:Desirable HDL: great er than 40 mg/dL Note: This HDL assay may give artificially low results in patients with liver disease. Blood Venous blood specimen / Unknown 11/12/2023 11:10 AM EDT 11/12/2023 1:10 PM EDT us Lorraine Handy NP LAB BLOOD ORDERABLES Final Resul t Performing Organization Address [facility] Co de Phone Number [facility] [address] [place] [phone] * Hepatitis C Ab (12/22/2022 9:33 AM EDT) Hepatitis C Antibody Nonreactive Nonreactive [facility] Comment:Antibodies to HCV no t detected; does not exclude early acuteHCV infection. Blood 12/22/2022 9:33 AM EDT 12/22/2022 11:00 AM EDT us Samuel Mccarthy MD LAB BLOOD ORDERABLES Final Resul t Performing Organization Address [facility] Phone Number [facility] [address] [place] [phone] * HIV Ab/Ag ([facility]) (12/22/2022 9:33 AM EDT) HIV AB/AG Nonreactive Nonreactive [facility] Comment:HIV-1 p24 Ag and/or HIV-1/HIV-2 Ab not detected.A test result that is nonreactive does not exclude thepossibility of exposure to or infection with HIV-1 and/orHIV-2. Nonreactive results in this assay for individualswith prior exposure to HIV-1 and/or HIV-2 may be due toantigen and antibody levels that are below the limit ofdetection of this assay.The [employer] HIV Ag/Ab Combo assay result andsupplemental assay results should be interpreted inconjunction with the patient's clinical presentation,history and other laboratory results. If the results areinconsistent with clinical evidence, additional testing issuggested to confirm the result. 12/22/2022 9:33 AM EDT 12/22/2022 11:00 AM EDT Result Ifeoma Mccarthy MD LAB BLOOD ORDERABLES Final Resul t [facility] [address] [place] [phone] [phone] * HM PAP/HPV (09/19/2021 6:00 PM EDT) us Historical Provider HEALTH MAINTENANCE Final Result from Last 3 Months or Most Recently Relevant to Health Maintenance Insurance [facility] Care Teams Hot Packer Relationship Specialty Start Date End Date Name, MD Samuel [address] [place] [address] PCP - General Internal Medicine 06/18/24
--- OUTSIDE RECORDS SUMMARY | 2024-09-10 08:42 | XMS_ITS | Encounter Summary ---
Author Organization [employer] Address [address] [facility] [address] [place] [address] Care Team Providers Care Purification Director Name Role Phone Name, Samuel IVORY Primary Care Provider [phone] Lorraine Handy NP Primary Care Provider [phone] Name, Samuel IVORY Primary Care Provider [phone] Encounter Details Date Type Department Care Team (Late st Contact Info) Description 04/05/2023 Orders Only [facility] [address] [place], [place] [phone] Melania Valerio LPN Social History Tobacco Use [...] Description 10/01/2024 2:00 PM EDT Office Visit [facility] [address] [place] [address] Carmela Martin, OD [address] [place] [address] 12/24/2024 9:45 AM EDT Office Visit [facility] [address] [place] [phone] Samuel Mccarthy MD [address] [place] [phone] documented as of this encounter Visit Diagnoses Not on filedocumented in this encounter Additional Health Concerns Assessment Noted Time PHQ-9 Depression Total Score: 0 12/23/19 23 8:58 AM EDT documented as of this encounter Care Teams Purification Director Relationship Specialty Start Date End Date Samuel Mccarthy MD [address] [place] [phone] PCP - General Family Medicine 04/17/18 05/07/24 Lorraine Handy NP [address] [place] [phone] PCP - General Family Medicine 05/08/24 06/17/24 Samuel Mccarthy MD [address] [place] [phone] PCP - General Internal Medicine 06/18/24 documented as of this encounter
--- OUTSIDE RECORDS SUMMARY | 2024-09-10 08:42 | XMS_ITS | Encounter Summary ---
Author Organization [employer] Address [address] [facility] [address] [place] [address] Care Team Providers Care Tow Truck Driver Name Role Phone Lorraine Handy NP Primary Care Provider [phone] NameSamuel MD Primary Care Provider [phone] Encounter Details Date Type Department Care Team (Late st Contact Info) Description 06/08/2024 Orders Only [facility] [address] [place] [address] Provider, MD Mayra Social History Tobacco Use [...] Description 10/01/2024 2:00 PM EDT Office Visit [facility] [address] [place] [address] TarCarmela tucker, OD [address] [place] [address] 12/24/2024 9:45 AM EDT Office Visit [facility] [address] [place] [address] Name, MD Samuel [address] [place] [address] documented as of this encounter Procedures Procedure [...] documented as of this encounter Care Teams Tow Truck Driver Relationship Specialty Start Date End Date Lorraine Handy NP [address] [place] [phone] PCP - General Family Medicine 05/08/24 06/17/24 Name, MD Samuel [address] [place] [address] PCP - General Internal Medicine 06/18/24 documented as of this encounter
[2024-09-10 11:27] LABS: Alanine Aminotransferase 17 U/L (0-31); Albumin Level 4.4 g/dL (3.5-5.0); Alkaline Phosphatase 78 U/L (39-117); Anion Gap 14 (12-20); Aspartate Amino Transferase 19 U/L (5-31); Bilirubin Total 0.6 mg/dL (0.0-1.0); Blood Urea Nitrogen 15 mg/dL (9-16); Calcium 9.3 mg/dL (8.4-10.2); Carbon Dioxide 21 mmol/L (22-29); Chloride 105 mmol/L (96-108); Cholesterol 112 mg/dL (<200); Estimated Glomerular Filt Rate > 60; Glucose Random 157 mg/dL (60-115); HDL Cholesterol 44 mg/dL (>40); LDL Cholesterol Calculated 54 mg/dL (<100); Potassium 3.9 mmol/L (3.3-5.1); Sodium 136 mmol/L (135-145); Total Protein 7.5 g/dL (6.5-8.0); Triglycerides 70 mg/dL (<150)
[2024-09-10 11:30] LABS: Creatinine Urine 119.54 mg/dL; Microalbum/Creatinine Ratio Ur 12.5 ug/mg cr (<30)
== END 2024-09-10 08:28 | disposition home or self-care (01) ==
LOC: HO.HHCL 08:27
PROVIDERS: Visit Provider Internal Medicine Geriatric Medicine
DX: E11.65 Type 2 diabetes mellitus with hyperglycemia (principal)
CPT/HCPCS: 36415; 80053; 80061; 82043; 82570

== ENCOUNTER 2025-04-27 11:07 | Outpatient (REF) | payer BC, OTHER, SELFPAY ==
--- OUTSIDE RECORDS SUMMARY | 2025-04-27 10:45 | XMS_ITS | Encounter Summary ---
Author Organization [employer] Address [address] [facility] 7 [place] [address] Care Team Providers Care Special Delivery Clerk Name Role Phone Name, Samuel IVORY Primary Care Provider [phone] Reason for Visit * Reason Comments Dizziness Unintentional weight loss Encounter Details Date Type Department Care Team ([facility] st Contact Info) Description 04/27/2025 10:45 AM EST Office Visit [facility] [address] [place], [place] [phone] Name, MD Samuel [address] [place] [address] Dizziness (Primary Dx); Weight loss, unintentional; Decrease in appetite; Type 2 diabetes mellitus with hyperglycemia, without long-term current use of insulin (HCC); Encounter for immunization Social History Tobacco Use Types Packs/Day Years [...] Sign Reading Time Taken Comments Blood Pressure 131/83 04/27/2025 10:56 AM EST Pulse 81 04/27/2025 10:41 AM EST Temperature 36.1 C (96.9 F) 04/27/2025 10:41 AM EST Respiratory Rate 20 04/27/2025 10:41 AM EST Oxygen Saturation 98% 04/27/2025 10:41 AM EST Inhaled Oxygen Concentration - - Weight 61 kg (134 lb 6.4 oz) 04/27/2025 10:41 AM EST Height - - Body Mass Index 23.81 12/24/2024 9:45 AM EDT documented in this encounter Progress Notes * Samuel Mccarthy MD - 04/27/2025 10:45 AM EST Subjective Patient ID: Otf Driscoll is a 44 y.o. adult who presents for Dizziness and Unintentionalweight loss. Patient comes for a sick visit. The patient tells me that she is having difficulties tolerating hercurrent dose of Synjardy. I increased her dose of metformin and Jardiance and combined both medications on tablet of Synjardy at her last visit. Since she has been using the higher doses of metforminand Jardiance she has noted decreased appetite, weight loss, dizziness. She has been checking her blood sugar at home and she has not seen any episodes of hypoglycemia. She is mostly concerned about her weight loss. She has noted improvement of her blood sugars at home. Her hemoglobin A1c has improved to 6.8 today. Her BP has been running normal at home as well. Review of Systems Constitutional: Positive for fatigue and unexpected weight change. Negative for chills and fever. HENT: Negative for sore throat. Respiratory: Negative for cough, shortness of breath and wheezing. Cardiovascular: Negative for chest pain, palpitations and leg swelling. Gastrointestinal: Negative for abdominal pain. Objective Vitals: 04/27/25 1041 04/27/25 1056 BP: (!) 152/93 131/83 BP Location: Left arm Patient Position: Sitting BP Cuff Size: Adult Pulse: 81 Resp: 20 Temp: 96.9 ??F (36.1 ??C) TempSrc: Oral SpO2: 98% Weight: 134 lb 6.4 oz (61 kg) Physical Exam Constitutional: Appearance: Normal appearance. Cardiovascular: Rate and Rhythm: Normal rate and regular rhythm. Heart sounds: No murmur heard. Pulmonary: Effort: Pulmonary effort is normal. No respiratory distress. Breath sounds: No wheezing, rhonchi or rales. Abdominal: Palpations: Abdomen is soft. Tenderness: There is no abdominal tenderness. Musculoskeletal: Right lower leg: No edema. Left lower leg: No edema. Neurological: Mental Status: Otf is alert. Assessment/Plan Diagnoses and all orders for this visit: Dizziness Comments: I think is possible the patient is having side effects to higher dose of metformin and Jardiance. Isuspect is most of her symptoms are because of difficulties tolerating the higher dose of metformin. Metformin can be associated with weight loss. I will decrease her dose of metformin to 500 mg once a day that she was tolerating well in the past. I will continue current dose of Jardiance from the metformin at 25 mg once a day. I recommended evaluation with blood work listed below. Further recommendation based on the results and her response to the medication changes done today. Follow-up in 8 weeks. Orders: - CBC auto differential; Future - Comprehensive Metabolic Panel; Future - TSH W/Reflex to FT4; Future Weight loss, unintentional - CBC auto differential; Future - Comprehensive Metabolic Panel; Future - TSH W/Reflex to FT4; Future Decrease in appetite - CBC auto differential; Future - Comprehensive Metabolic Panel; Future - TSH W/Reflex to FT4; Future Type 2 diabetes mellitus with hyperglycemia, without long-term current use of insulin (HCC) - empagliflozin (Jardiance) 25 MG; Take 1 tablet (25 mg) by mouth Once per day. Encounter for immunization Comments: Patient will receive flu vaccine today. Orders: - FLU VACCINE TRIVALENT [id number] (Fluarix) 19 yrs + Other orders - metFORMIN XR (Glucophage-XR) 500 MG 24 hr tablet; Take 1 tablet (500 mg) by mouth Once daily. Do not crush, chew, or split. documented in this encounter Miscellaneous Notes * Addendum Note - Thuy Marin MA - 04/27/2025 10:45 AM ESTAddended by: THUY MARIN on: 04/27/2025 11:42 AM Modules accepted: Orders documented in this encounter Plan of Treatment Upcoming Encounters Date Type Department Care Team (Late st Contact Info) Description 07/14/2025 11:30 AM EDT Office Visit [facility] [address] [place] [phone] Name, MD Samuel [address] [place] [phone] Scheduled Orders Name Type Priority Associated Diagnoses Orde r Schedule CBC auto differential Lab Routine Dizziness Weight loss, unintentional Decrease in appetite Expected: 04/27/2025 (Approximate), Expires: 04/27/2026 Comprehensive Metabolic Panel Lab Routine Dizziness Weight loss, unintentional Decrease in appetite Expected: 04/27/2025 (Approximate), Expires: 04/27/2026 TSH W/Reflex to FT4 Lab Routine Dizziness Weight loss, unintentional Decrease in appetite Expected: 04/27/2025 (Approximate), Expires: 04/27/2026 documented as of this encounter Goals Goal Patient Goal Type Associated Problems Recent Progress Patient-Stated? Author Help patients manage their type 2 diabetes Care Plan Help patients manage their type 2 diabetes No Jacinda Sorto RN Weekly blood pressure task Care Plan Weekly blood pressure task No Jacinda Sorto RN Help patients manage their type 2 diabetes Care Plan Help patients manage their type 2 diabetes No Jacinda Sorto RN Patient has chronic kidney disease Care Plan Patient has chronic kidney disease No Jacinda Sorto RN Help patients manage their type 2 diabetes Care Plan Help patients manage their type 2 diabetes No Jacinda Sorto RN Patient has diabetic neuropathy Care Plan Patient has diabetic neuropathy No Jacinda Sorto RN Weekly blood pressure task Care Plan Weekly blood pressure task No Jacinda Sorto RN Weekly blood pressure task Care Plan Weekly blood pressure task No Jacinda Sorto RN Patient has chronic kidney disease Care Plan Patient has chronic kidney disease No Jacinda Sorto RN Patient has chronic kidney disease Care Plan Patient has chronic kidney disease No Jacinda Sorto RN Patient has diabetic neuropathy Care Plan Patient has diabetic neuropathy No Jacinda Sorto RN Patient has diabetic neuropathy Care Plan Patient has diabetic neuropathy No Jacinda Sorto RN Weekly blood pressure task Care Plan Weekly blood pressure task CuneySamuel Mccarthy MD Weekly blood pressure task Care Plan Weekly blood pressure task CuneySamuel Mccarthy MD Weekly blood pressure task Care Plan Weekly blood pressure task CuneySamuel Mccarthy MD Patient has chronic kidney disease Care Plan Patient has chronic kidney disease CuneySamuel Mccarthy MD Patient has chronic kidney disease Care Plan Patient has chronic kidney disease CuneySamuel Mccarthy MD Patient has chronic kidney disease Care Plan Patient has chronic kidney disease CuneySamuel Mccarthy MD Patient has diabetic neuropathy Care Plan Patient has diabetic neuropathy CuneySamuel Mccarthy MD Patient has diabetic neuropathy Care Plan Patient has diabetic neuropathy CuneySamuel Mccarthy MD Patient has diabetic neuropathy Care Plan Patient has diabetic neuropathy CuneySamuel Mccarthy MD documented as of this encounter Procedures Procedure Name Priority Date/Time Associated Diagnosis Comments POCT GLUCOSE (CPT-47552) Routine 04/27/2025 11:42 AM EST Type 2 diabetes mellitus with hyperglycemia, without long-term current use of insulin (HCC) POCT GLYCOSYLATED HEMOGLOBIN (HGB A1C) Routine 04/27/2025 11:41 AM EST Type 2 diabetes mellitus with hyperglycemia, without long-term current use of insulin ([facility]) documented in this encounter Results * POCT glucose manually resulted (CPT-29969) (04/27/2025 11:42 AM EST) Glucose Blood, POC 150 60 - 200 mg/dL QC Media Lot # [id number] Lot# Expiration Date 772 Blood Capillary blood specimen / Unknown 04/27/2025 11:42 AM EST us Samuel Mccarthy MD POINT OF CARE TEST ENTER/EDIT OR DERABLES Final Result * (ABNORMAL) POCT glycosylated hemoglobin (Hgb A1c) (04/27/2025 11:41 AM EST) Hemoglobin A1C 6.8(A) 4.0 - 5.7 % QC Media Lot # [id number] Lot# Expiration Date 61,72 Blood Capillary blood specimen / Unknown 04/27/2025 11:41 AM EST us Samuel Mccarthy MD POINT OF CARE TEST ENTER/EDIT OR DERABLES Final Result documented in this encounter Visit Diagnoses Diagnosis Dizziness- Primary Dizziness and giddiness Weight loss, unintentional Loss of weight Decrease in appetite Type 2 diabetes mellitus with hyperglycemia, without long-term current use of insulin ([facility]) Encounter for immunization documented in this encounter Additional Health Concerns Active Problems Noted Date Diagnosed Date Help patients manage their type 2 diabetes 04/27 Weekly blood pressure task 04/27/2025 Help patients manage their type 2 diabetes 04/27 Patient has chronic kidney disease 04/27/2025 Help patients manage their type 2 diabetes 04/27 Patient has diabetic neuropathy 04/27/2025 Weekly blood pressure task 04/27/2025 Weekly blood pressure task 04/27/2025 Patient has chronic kidney disease 04/27/2025 Patient has chronic kidney disease 04/27/2025 Patient has diabetic neuropathy 04/27/2025 Patient has diabetic neuropathy 04/27/2025 Weekly blood pressure task 04/27/2025 Weekly blood pressure task 04/27/2025 Weekly blood pressure task 04/27/2025 Patient has chronic kidney disease 04/27/2025 Patient has chronic kidney disease 04/27/2025 Patient has chronic kidney disease 04/27/2025 Patient has diabetic neuropathy 04/27/2025 Patient has diabetic neuropathy 04/27/2025 Patient has diabetic neuropathy 04/27/2025 Assessment Noted Time PHQ-9 Depression Total Score: 1 06/18/19 9:54 AM EST documented as of this encounter Care Teams Special Delivery Clerk Relationship Specialty Start Date End Date Name, MD Samuel [address] [place] [address] PCP - General Internal Medicine 06/18/24 documented as of this encounter
--- OUTSIDE RECORDS SUMMARY | 2025-04-27 13:00 | XMS_ITS | Encounter Summary ---
Author Organization [employer] Address [address] [facility] 7t [place] [address] Care Team Providers Care Carpenter Labor Supervisor Name Role Phone Lorraine Handy NP Primary Care Provider NameSamuel MD Primary Care Provider [phone] Encounter Details Date Type Department Care Team (Late st Contact Info) Description 06/08/2024 Orders Only [facility] [address] [place] [address] Provider, MD Mayra Social History Tobacco Use [...] t he electric, gas, oil or water [employer] threatened to shut off services in your [...] Description 07/14/2025 11:30 AM EDT Office Visit [facility] [address] [place] [phone] NameSamuel MD [address] [place] [address] documented as of this encounter Procedures Procedure Name Priority Date/Time Associated Diagnosis Comments HM PAP/HPV Routine 09/19/2021 6:00 PM EDT documented in this encounter Results * HM PAP/HPV (09/19/2021 6:00 PM EDT) Historical Provider HEALTH MAINTENANCE Final Result documented in this encounter Visit Diagnoses Not on filedocumented in this encounter Additional Health Concerns Assessment Noted Time PHQ-9 Depression Total Score: 0 12/23/19 8:58 AM EDT documented as of this encounter Care Teams Carpenter Labor Supervisor Relationship Specialty Start Date End Date Lorraine Handy NP [address] [place] [phone] PCP - General Family Medicine 05/08/24 06/17/24 Samuel Mccarthy MD [address] [place] [address] PCP - General Internal Medicine 06/18/24 documented as of this encounter
--- OUTSIDE RECORDS SUMMARY | 2025-04-27 13:00 | XMS_ITS | Encounter Summary ---
Author Organization [employer] Address [address] [facility] 7t [place] [address] Care Team Providers Care Production Tech Name Role Phone Name, Samuel IVORY Primary Care Provider [phone] Lorraine Handy NP Primary Care Provider [phone] Name, Samuel IVORY Primary Care Provider Encounter Details Date Type Department Care Team (Late st Contact Info) Description 04/05/2023 Orders Only [facility] [address] [place], [place] [phone] Melania Valerio LPN Social History Tobacco Use [...] Description 07/14/2025 11:30 AM EDT Office Visit [facility] [address] [place] [address] NameSamuel MD [address] [place] [address] documented as of this encounter Visit Diagnoses Not on filedocumented in this encounter Additional Health Concerns Assessment Noted Time PHQ-9 Depression Total Score: 0 12/23/19 23 8:58 AM EDT documented as of this encounter Care Teams Production Tech Relationship Specialty Start Date End Date Samuel Mccarthy MD [address] [place] [phone] PCP - General Family Medicine 04/17/18 05/07/24 Lorraine Handy NP [address] [place] [address] PCP - General Family Medicine 05/08/24 06/17/24 NameSamuel MD [address] [place] [address] PCP - General Internal Medicine 06/18/24 documented as of this encounter
--- OUTSIDE RECORDS SUMMARY | 2025-04-27 13:00 | XMS_ITS | Encounter Summary ---
Author Organization [employer] Address [address] [facility] 7 [place] [address] Care Team Providers Care Cocoa Milling Machine Operator Name Role Phone Name, Samuel IVORY Primary Care Provider [phone] Reason for Visit * Reason Onset Date Comments Nurse Triage 04/27/2025 Encounter Details Date Type Department Care Team ([facility] Contact Info) Description 04/27/2025 Telephone [facility] MEDICINE [address] [place], [place] [phone] Name, MD Samuel [address] [place] [address] Nurse Triage Social History Tobacco Use Types Packs/Day Years [...] encounter Miscellaneous Notes * Telephone Encounter - Jacinda Sorto RN - 04/27/2025 9:55 AM EST Images from the original note were not included. Received above portal message from pt: Otf Driscoll to [facility] Medicine Clinical Support (supporting Samuel Mccarthy MD) (Selected Message) 04/26/25 5:20 PM Buenos denise ! quiero informarle que ya voy por el tercer pote de cierra medicamento y estoy teniendo efectos secundarios raros Le explico mareos ,nauseas, mucho cansancio , debilidad , no tengoapetito , perdida de peso , confucion . Perdi melo brad por que estaba enferma . Me podra manuel melo brad que sea miercoles o jueves si es posible.Jevon Translation: Good morning! Dr. Mccarthy, I want to inform you that I am already on the third bottle of this medication and I am experiencing unusual side effects. I will explain: dizziness, nausea, extreme fatigue, weakness, lack of appetite, weight loss, confusion. I missed an appointment because I was sick. Could you give me an appointment on Sunday or if possible? Thank you. TC placed to pt for triage. Pt requesting automation developer. [facility] automation developer (ID#[id number]) connected to the call. Pt reports they are on their 3rd bottle of the empagliflozin-metFORMIN (Synjardy) 12.5-500 MG and have developed symptoms over the last 2 weeks. Pt reports they are having the following symptomsconstantly: moderate dizziness, nausea, fatigue, weakness, loss of appetite, stomach discomfort, weight loss, difficulty concentrating at work. Pt reports unsure of how much weight they lost, but their clothes are large on them, and they can notice weight loss in face. Pt denies fever, chills, vomiting. Pt reports the dizziness comes and goes. Pt reports when they are walking, they are dizzy but h ave not had any fainting episodes. Pt concerned about symptoms. Pt booked for sick on site today with PCP at 10:45 AM. Pt agreeable to appointment and denies questions at this time. Advised pt to call office with any new or worsening symptoms. Pt agreeable to plan. Protocols Used (5): Abdominal Pain - Female (Adult), Dizziness (Adult), Weakness (Generalized) and Fatigue (Adult), Nausea (Adult), Weight Loss - Unintended (Adult) Disposition for Call: See in Office or Video Visit Today Protocol Used: Abdominal Pain - Female (Adult) Protocol-Based Disposition: See in Office or Video Visit Today Video visit offer not recorded Positive Triage Question: * Moderate pain (e.g., interferes with normal activities that comes and goes (cramps) lasts > 24hours (Exception: Pain with diarrhea or vomiting; see Diarrhea or Vomiting Protocol.) * All higher-acuity triage questions were negative. Care Advice Discussed: * Reasons To Call Back - Severe pain lasts over 1 hour - Constant pain lasts over 2 hours - Intermittent pains (comes and goes, cramps) lasts over 48 hours - You are - You become worse Protocol Used: Dizziness (Adult) Protocol-Based Disposition: See in Office or Video Visit Today Positive Triage Question: * Moderate dizziness (e.g., interferes with normal activities) (Exception: Dizziness caused by heatexposure, sudden standing, or poor fluid intake.) * All higher-acuity triage questions were negative. Care Advice Discussed: * Reasons To Call Back - After 2 hours of rest and fluids and you are still feeling dizzy - You pass out (faint) or are too weak to stand - You become worse Protocol Used: Weakness (Generalized) and Fatigue (Adult) Protocol-Based Disposition: See in Office or Video Visit Today Positive Triage Question: * Moderate weakness (e.g., interferes with work, school, normal activities) and lasts > 3 days * All higher-acuity triage questions were negative. Care Advice Discussed: * Reasons To Call Back - Unable to stand or walk - Passes out - Breathing difficulty occurs - You become worse Protocol Used: Nausea (Adult) Care Advice Discussed: * Reasons To Call Back - Nausea lasts over 1 week - You become worse Protocol Used: Weight Loss - Unintended (Adult) Care Advice Discussed: * Reasons To Call Back - You do not get better during the next 1 to 2 weeks - You lose more weight - You become worse documented in this encounter Plan of Treatment Upcoming Encounters Date Type Department Care Team (Late st Contact Info) Description 07/14/2025 11:30 AM EDT Office Visit [facility] MEDICINE [address] [place] [address] Name, MD Samuel [address] [place] [address] documented as of this encounter Goals Goal Patient Goal Type Associated Problems Recent Progress Patient-Stated? Author Help patients manage their type 2 diabetes Care Plan Help patients manage their type 2 diabetes Jacinda Watkins RN Weekly blood pressure task Care Plan [...] Plan Patient has diabetic neuropathy No Jacinda Sorot RN Patient has diabetic neuropathy Care Plan Patient has diabetic neuropathy Jacinda Watkins RN Weekly blood pressure task Care Plan Weekly blood pressure task [facility] MD Weekly blood pressure task Care Plan Weekly blood pressure task [facility] MD Weekly blood pressure task Care Plan Weekly blood pressure task [facility] MD Patient has chronic kidney disease Care Plan Patient has chronic kidney disease [facility] MD Patient has chronic kidney disease Care Plan Patient has chronic kidney disease [facility] MD Patient has chronic kidney disease Care Plan Patient has chronic kidney disease [facility] MD Patient has diabetic neuropathy Care Plan Patient has diabetic neuropathy [facility] MD Patient has diabetic neuropathy Care Plan Patient has diabetic neuropathy [facility] M[facility] MD Patient has diabetic neuropathy Care Plan Patient has diabetic neuropathy [facility] MD documented as of this encounter Visit Diagnoses Not on filedocumented in this encounter Additional Health Concerns Active [...] documented as of this encounter Care Teams Cocoa Milling Machine Operator Relationship Specialty Start Date End Date Name, MD Samuel [address] [place] [address] PCP - General Internal Medicine 06/18/24 documented as of this encounter
--- OUTSIDE RECORDS SUMMARY | 2025-04-27 13:00 | XMS_ITS | Encounter Summary ---
Author Organization [employer] Address [address] [facility] 7 [place] [address] Care Team Providers Care Transportation Sales Consultant Name Role Phone Name, Samuel IVORY Primary Care Provider [phone] Reason for Visit * Reason Onset Date Comments Med Refill 10/11/2024 Encounter Details Date Type Department Care Team ([facility] st Contact Info) Description 10/11/[address] [facility] MEDICINE [address] [place], [place] [phone] Name, MD Samuel [address] [place] [address] Social History Tobacco Use Types Packs/Day Years [...] Description 07/14/2025 11:30 AM EDT Office Visit [facility] MEDICINE [address] [place] [address] NameSamuel MD [address] [place] [address] documented as of this encounter Visit Diagnoses Not on filedocumented in this encounter Additional Health Concerns Assessment Noted Time PHQ-9 Depression Total Score: 1 06/18/19 25 9:54 AM EST documented as of this encounter Care Teams Transportation Sales Consultant Relationship Specialty Start Date End Date NameSamuel MD [address] [place] [address] PCP - General Internal Medicine 06/18/24 documented as of this encounter
--- OUTSIDE RECORDS SUMMARY | 2025-04-27 13:00 | XMS_ITS | Clinical Summary ---
Author Organization [employer] Address [address] [facility] 7t [place] [address] Care Team Providers Care Unpaid Intern Name Role Phone Name, Samuel IVORY Primary Care Provider [phone] Allergies Active Allergy Reactions Criticality Noted Date Comments Penicillins 04/04/2013 Medications FREESTYLE LITE test strip Use to test blood sugar 1 times daily 100 each 12 5 026 Active Lancets misc Use to test blood sugar 1 times daily 100 each 5 Active Alcohol Swabs 70 % pads Use to test blood sugar 1 times daily 100 each 5 Active Blood Glucose Monitoring Suppl (FreeStyle Subiaco Lite) w/Device kit Use to test blood sugar 1 times daily 1 kit 5 Active metoprolol tartrate (Lopressor) 25 MG tablet Take 1 tablet (25 mg) by mouth 2 times daily. 180 tablet 3 5 Active lisinopril 2.5 MG tabletIndications:T ype 2 diabetes mellitus with hyperosmolarity without coma, unspecified whether fpc insulin use (HCC) TAKE 1 TABLET BY MOUTH EVERY DAY 90 tablet 3 5 Active atorvastatin (Lipitor) 20 MG tablet TAKE 1 TABLET BY MOUTH ONCE PER DAY. 90 tablet 3 5 Active neomycin-polymyxin- dexAMETHasone 0.1 % ointmentIndications :Apply to eyelids twice a day for 14 days Apply to eyelids twice a day for 14 days 3.5 g 1 5 Active metFORMIN XR (Glucophage-XR) 500 MG 24 hr tablet Take 1 tablet (500 mg) by mouth Once daily. Do not crush, chew, or split. 30 tablet 11 5 026 Active empagliflozin (Jardiance) 25 MGIndications:Type 2 diabetes mellitus with hyperglycemia, without long-term current use of insulin (HCC) Take 1 tablet (25 mg) by mouth Once per day. 30 tablet 11 5 026 Active empagliflozin-metFO RMIN (Synjardy) 12.5-500 MGIndications:Type 2 diabetes mellitus with hyperglycemia, without long-term current use of insulin (HCC),Diabetic polyneuropathy associated with type 2 diabetes mellitus (HCC) Take 2 tablets by mouth with breakfast. 60 tablet 11 5 025 Discontin ued(Side effects) Active Problems Problem Noted Date Diagnosed Date Diabetic polyneuropathy asso ciated with type 2 diabetes mellitus 12/24/2024 Type 2 diabetes mellitus wit h hyperglycemia, without long-term current use of insulin 09/09/2024 Onychomadesis of toenail 06/18/2024 Assessment & Plan (07/21/2024 4:11 PM EDT): Topical therapy, Referral to podiatry Tobacco dependence 06/18/2024 Assessment & Plan (07/21/2024 4:12 PM EDT): Encouraged cessation External hemorrhoids 12/22/2022 Vertigo 12/21/2022 History of cholecystectomy 09/08/2020 Resolved Problems [...] and vigorous-intensity activity Exercise counseling 06/18/2024 09/10/19 25 Leucocytosis 06/18/2024 09/09/2024 Swelling of finger joint [...] with new dx of diabetes, presented to [facility] for hyperglyemic symptoms. Metfromin 500 mg [...] Encounters Date Type Department Care Team Description 04/27/2025 10:45 AM EST Office Visit [facility] [address] [place] [address] Name, MD Samuel Dizziness (Primary Dx); Weight loss, unintentional; Decrease in appetite; Type 2 diabetes mellitus with hyperglycemia, without long-term current use of insulin (HCC); Encounter for immunization 04/27/2025 Travel 04/27/2025 Telephone [facility] [address] [place] [address] Name, MD Samuel Nurse Triage 03/05/2025 11:30 AM EST Office Visit [facility] [address] [place] [address] Carmela Martin, OD Blepharitis of both upper and lower eyelid of left eye, unspecified type (Primary Dx); Infestation by demodex folliculorum 03/05/2025 Travel from Last 3 Months Immunizations Immunization Administration Dates Next Due Hep B, adult 01/21/2015,12/24/2014 Influenza injectable quadriv alent IIV4 with preservative 01/21/2015 Influenza injectable quadriv alent preservative free 01/30/2022,06/04/2019,04/17/2018 Influenza, seasonal, injecta ble, preservative free 04/27/2025 Pneumococcal Conjugate PCV 20 09/09/2024 Tdap 04/17/2018 [...] 6.4 oz) 04/27/2025 10:41 AM EST Height 160 cm (5' 3 ) 12/24/2024 9:45 AM EDT Body Mass Index 23.81 12/24/2024 9:45 AM EDT Plan of Treatment Upcoming Encounters Date Type Department Care Team (Late st Contact Info) Description 07/14/2025 11:30 AM EDT Office Visit [facility] [address] [place] [address] Name, MD Samuel [address] [place] [address] Health Maintenance Due Date Last Done Comments CT Colonography 1979 Colonoscopy 1979 Colorectal Cancer Screening 1979 FIT DNA/Cologuard 1979 FIT 1979 FOBT 1979 Sigmoidoscopy 1979 Family Planning (PISQ) 12/28/1994 HPV Vaccines (1 - 3-dose series) 12/28/1994 Hepatitis B Vaccines (3 of 3 - 19+ 3-dose series) 06/26/2015 01/21/2015, 12/24/2014 Mammogram 2019 COVID-19 Vaccine ( season) 2024 06/20/2021, 05/23/2021 SDOH Screening 06/09/2025 06/09/2024 Depression Screening 06/18/2025 06/18/2024, 06/18/19 Alcohol/Substance Use Screening 09/09/2025 09/09/2024 Disability Screening 09/09/2025 09/09/2024 Diabetes: Urine Protein Screening 09/10/2025 09/10/2024, 12/14/2023 Lipid Panel 09/10/2025 09/10/2024, 10/28, 12/22/2022 Diabetes: Hemoglobin A1C 10/26/2025 025, 12/24/2024, 09/09/2024, Additional history exists Diabetes: Foot Exam 12/24/2025 12/24/2024, 12/24/2024, 12/24/2024, Additional history exists Eye Exam 03/05/2026 03/05/2025, 12/29, 01/08/2025, Additional history exists Tobacco Screening 04/27/2026 04/27/2025 Cervical Cancer Screening 09/19/2026 HPV/Cotest 09/19/2026 Pap Smear 09/19/2026 09/19/2021 DTaP/Tdap/Td Vaccines (2 - Td or Tdap) 04/17/2028 04/17/2018 Zoster Vaccines (1 of 2) 12/28/2029 RSV Patients and Patients Aged 60 years or older (1 - 1-dose 75+ series) 12/28/2054 HIV Screening Completed 12/22/2022 Hepatitis C Screening Completed 12/22/2022 Pneumococcal Vaccine: Pediatrics (0 to 5 Years) and At-Risk Patients (6 to 49) Years Completed 09/09/2024 Influenza Vaccine Completed 04/27/2025, , 06/04/2019, Additional history exists HIB Vaccines Aged Out No longer eligi [...] on patient's age to complete this topic Goals Goal Patient Goal Type Associated Problems [...] Care Plan Patient has chronic kidney disease Jacinda Watkins RN Help patients manage their type 2 [...] Care Plan Patient has chronic kidney disease Jacinda Watkins RN Patient has chronic kidney disease Care Plan Patient has chronic kidney disease No Jacinda Sorto RN Patient has diabetic neuropathy Care Plan Patient has diabetic neuropathy No Jacinda Sorto RN Patient has diabetic neuropathy Care Plan Patient has diabetic neuropathy No Jacinda Sorto RN Weekly blood pressure task Care Plan Weekly blood pressure task [place] Mcc[place] MD Weekly blood pressure task Care Plan Weekly blood pressure task [place] M[place] MD Weekly blood pressure task Care Plan Weekly blood pressure task [place], MD Samuel Patient has chronic kidney disease Care Plan Patient has chronic kidney disease [place] M[place] MD Patient has chronic kidney disease Care Plan Patient has chronic kidney disease [place] Mcc[place] MD Patient has chronic kidney disease Care Plan Patient has chronic kidney disease [place] Mcc[place] MD Patient has diabetic neuropathy Care Plan Patient has diabetic neuropathy [place] Mcc[place] MD Patient has diabetic neuropathy Care Plan Patient has diabetic neuropathy [place], MD Samuel Patient has diabetic neuropathy Care Plan Patient has diabetic neuropathy [place], MD Samuel Procedures Procedure Name Priority Date/Time Associated Diagnosis Comments POCT GLUCOSE (CPT-69107) Routine 04/27/2025 11:42 AM EST Type 2 diabetes mellitus with hyperglycemia, without long-term current use of insulin (HCC) POCT GLYCOSYLATED HEMOGLOBIN (HGB A1C) Routine 04/27/2025 11:41 AM EST Type 2 diabetes mellitus with hyperglycemia, without long-term current use of insulin (HCC) ALBUMIN, RANDOM URINE W/CREATININE Routine 09/10/2024 8:30 AM EDT Type 2 diabetes mellitus with hyperglycemia, without long-term current use of insulin ([facility]/HCC) LIPID PANEL, STANDARD Routine 09/10/2024 8:30 AM EDT Type 2 diabetes mellitus with hyperglycemia, without long-term current use of insulin ([facility]) HEPATITIS C ANTIBODY Routine 12/22/2022 9:33 AM EDT Screening for cholesterol level Screening for diabetes mellitus Screen for STD (sexually transmitted disease) Migraine without status migrainosus, not intractable, unspecified migraine type HIV ANTIBODY/ANTIGEN ([place] [facility]) Routine 12/22/2022 9:33 AM EDT HM PAP/HPV Routine 09/19/2021 6:00 PM EDT from Last 3 Months or Most Recently Relevant to Health Maintenance Results * POCT glucose manually resulted (CPT-34696) (04/27/2025 11:42 AM EST) Glucose Blood, POC 150 60 - 200 mg/dL QC Media Lot # [id number] Lot# Expiration Date Blood Capillary blood specimen / Unknown 04/27/2025 11:42 AM EST Result Ifeoma Mccarthy MD POINT OF CARE TEST ENTER/EDIT OR DERABLES Final Result * (ABNORMAL) POCT glycosylated hemoglobin (Hgb A1c) (04/27/2025 11:41 AM EST) Hemoglobin A1C 6.8(A) 4.0 - 5.7 % QC Media Lot # [id number] Lot# Expiration Date Blood Capillary blood specimen / Unknown 04/27/2025 11:41 AM EST Result Ifeoma Mccarthy MD POINT OF CARE TEST ENTER/EDIT OR DERABLES Final Result * Albumin, Random Urine W/Creatinine (09/10/2024 8:30 AM EDT) Creatinine, Urine 119.54 mg/dL [facility] Microalbumin Urine 15.0 mg/L [facility] Microalbum Creatinine Ratio Ur 12.5 <30 ug/mg cr [facility] Comment:Albumin/Creatinine R atio Reference Ranges: Normal: < 30 ug/mg creatinine Microalbuminuria: 30 - 300 ug/mg creatinineClinical Albuminuria: > 300 ug/mg creatinine Urine (Urine, Random) 09/10/2024 8:30 AM EDT 09/10/2024 10:58 AM EDT Result Ifeoma Mccarthy MD LAB URINE ORDERABLES Final Resul t [facility] [address] [place] [phone] * Lipid Panel, Standard (09/10/2024 8:30 AM EDT) Triglycerides 70 <150 mg/dL [facility] Comment:Desirable Triglyceri de: less than 150 mg/dLBorderline High Triglyceride 150-199 mg/dLHigh Triglyceride: 200-499 mg/dLVery High Triglyceride: greater than or equal to 5OO mg/dL Cholesterol 112 <200 mg/dL [facility] Comment:Desirable Cholestero l: less than 200 mg/dLBorderline High Cholesterol: 200-239 mg/dLHigh Cholesterol: greater than 239 mg/dL LDL Cholesterol Calculated 54 <100 mg/dL [facility] Comment:Desirable LDL: less than 100 mg/dLNear Optimal/Above Optimal LDL: 110- 129 mg/dLBorderline High LDL: 130-159 mg/dLHigh LDL: 160-189 mg/dLVery High LDL: greater than or equal to 190 mg/dL HDL Cholesterol 44 >40 mg/dL [facility] Comment:Desirable HDL: great er than 40 mg/dL Note: This HDL assay may give artificially low results in patients with liver disease. Blood Venous blood specimen / Unknown 09/10/2024 8:30 AM EDT 09/10/2024 10:54 AM EDT us Samuel Mccarthy MD LAB BLOOD ORDERABLES Final Resul t Performing Organization Address [facility] Co de Phone Number [facility] [address] [place] [phone] * Hepatitis C Ab (12/22/2022 9:33 AM EDT) Hepatitis C Antibody Nonreactive Nonreactive [facility] Comment:Antibodies to HCV no t detected; does not exclude early acuteHCV infection. Blood 12/22/2022 9:33 AM EDT 12/22/2022 11:00 AM EDT us Samuel Mccarthy MD LAB BLOOD ORDERABLES Final Resul t Performing Organization Address City/[facility] Co de Phone Number [facility] [address] [place] [phone] * HIV Ab/Ag (ROBERT ARRIETA) (12/22/2022 9:33 AM EDT) HIV AB/AG Nonreactive Nonreactive [facility] Comment:HIV-1 p24 Ag and/or HIV-1/HIV-2 Ab not detected.A test result that is nonreactive does not exclude thepossibility of exposure to or infection with HIV-1 and/orHIV-2. Nonreactive results in this assay for individualswith prior exposure to HIV-1 and/or HIV-2 may be due toantigen and antibody levels that are below the limit ofdetection of this assay.The [employer] HIV Ag/Ab Combo assay result andsupplemental assay results should be interpreted inconjunction with the patient's clinical presentation,history and other laboratory results. If the results areinconsistent with clinical evidence, additional testing issuggested to confirm the result. 12/22/2022 9:33 AM EDT 12/22/2022 11:00 AM EDT Samuel Mccarthy MD LAB BLOOD ORDERABLES Final Resul t [facility] [address] [place] [phone] * HM PAP/HPV (09/19/2021 6:00 PM EDT) Historical Provider HEALTH MAINTENANCE Final Result from Last 3 Months or Most Recently Relevant to Health Maintenance Additional Health Concerns Active Problems Noted Date [...] neuropathy 04/27/2025 Patient has diabetic neuropathy 04/27/[address] [facility] Care Teams Unpaid Intern Relationship Specialty Start Date End Date Name, MD Samuel [address] [place] [phone] PCP - General Internal Medicine 06/18/24
--- OUTSIDE RECORDS SUMMARY | 2025-04-27 13:00 | XMS_ITS | Encounter Summary ---
Author Organization [employer] Address [address] [facility] 7 [place] [address] Care Team Providers Care Deliverer Merchandise Name Role Phone Name, Samuel IVORY Primary Care Provider [phone] Reason for Visit * Reason Onset Date Comments Med Refill 10/11/2024 Encounter Details Date Type Department Care Team ([facility] st Contact Info) Description 10/11/2024 Refill [facility] [address] [place], [place] [phone] Name, MD Samuel [address] [place] [address] Social History Tobacco Use Types Packs/Day Years [...] Description 07/14/2025 11:30 AM EDT Office Visit [facility] [address] [place] [address] NameSamuel MD [address] [place] [address] documented as of this encounter Visit Diagnoses Not on filedocumented in this encounter Additional Health Concerns Assessment Noted Time PHQ-9 Depression Total Score: 1 06/18/19 25 9:54 AM EST documented as of this encounter Care Teams Deliverer Merchandise Relationship Specialty Start Date End Date NameSamuel MD [address] [place] [phone] PCP - General Internal Medicine 06/18/24 documented as of this encounter
--- OUTSIDE RECORDS SUMMARY | 2025-04-27 13:00 | XMS_ITS | Clinical Summary ---
Author Organization [address] [facility] Address [address] [place] [address] Phone Care Team Providers Care Journal Box Inspector Name Role Phone Name, Samuel IVORY Primary Care Provider [phone] Surgical History Surgery Date Site/Laterality Comments OTHER SURGICAL HISTORY PROCEDURE: [place] LIG/TRNSXJ FLP TUBE ABDL/VAG APPR UNI/BI OTHER SURGICAL HISTORY 1996 Left PROCEDURE: BREAST MASS CORE BIOPSY SPCMN PATHOLGY EXAM BREAST SURGERY 1996 Left PROCEDURE: [place] UNLISTED PROCEDURE BREAST; COMMENT: neg Medical History [...] on file Sexual Orientation Not on file Last Filed Vital Signs Vital Sign Reading [...] Health Maintenance Due Date Last Done Comments Colorectal Cancer Screening: Colonoscopy 1979 DTaP,Tdap,and Td Vaccines (1 - Tdap) 12/28/1998 Hepatitis B Vaccines (1 of 3 - 19+ 3-dose series) 12/28/1998 Pneumococcal Vaccine: Pediat rics (0 to 5 Years) and At-Risk Patients (6 to 49 Years) (1 of 2 - PCV) 12/28/1998 HPV Vaccines (1 - 3-dose SCD M series) 12/28/2006 HIV Screening 04/09/2022 Hepatitis C Screening 04/09/2022 Social Influencers of Health Screening 04/09/2022 Breast Cancer Screening 10/04/2023 10/03/2021 Depression Screening 04/30/2024 Cervical Cancer Screening: P ap Smear 09/19/2024 09/19/2021 COVID-19 Vaccine (1 - 2024-2 6 season) 2024 Influenza Vaccine (#1) 2024 RSV Immunization Adult Patie nts (1 - 1-dose 75+ series) 12/28/2054 HIB Vaccines Aged Out No longer eligi [...] interpreted with the aid of computer-aided detection. This is a baseline exam. Breast parenchyma is heterogeneously dense, limiting mammographic sensitivity. No suspicious mass, architectural distortion, or suspicious calcifications. [...] malignancy. BI-RADS 1 - negative Tiffanie Jarquin [facility] XR PROCEDURES Final Resul t * Pap smear (09/19/2021) 09/19/2021 Narrative HISTORICAL TESTING LAB RESULTING AGENCY - 10/03/2021 4:56 PM EDT [id number] THINPREP PAP, IMAGED: NEGATIVE FOR SQUAMOUS INTRAEPITHELIAL [...] HIGH RISK HPV ASSAY: HIGH RISK HPV: NEGATIVE (SEROTYPES 16,18,31,33,35,39,45,51,52,56,58,59,66,68) COMPLETED ON 2021-09-20 ADEQUACY: SATISFACTORY ENDOCERVICAL/TRANSFORMATION ZONE COMPONENT PRESENT. SOURCE: THINPREP PAP HPV ANY DX: REFLEX 16 AND 18, CERVICAL, IMAGED CLINICAL INFORMATION: HPV ANY DIAGNOSIS. HORMONES, PAP HX 2014 NEG, LMP 08/26/2021, [[id number]] Tiffanie Jarquin [facility] LAB CYTOLOGY ORDERABLES Final Result HISTORICAL TESTING LAB RESULTING AGENCY from Last 3 Months or Most Recently Relevant to Health Maintenance Insurance [facility] Care Teams Journal Box Inspector Relationship Specialty Start Date End Date Name, MD Samuel [address] [place] [address] PCP - General Internal Medicine 08/06/18
--- OUTSIDE RECORDS SUMMARY | 2025-04-27 13:00 | XMS_ITS | Encounter Summary ---
Author Organization [employer] Address [address] [facility] 7t [place] [address] Care Team Providers Care Dance Therapist Name Role Phone Name, Samuel IVORY Primary Care Provider [phone] Lorraine Handy NP Primary Care Provider [phone] Name, Samuel IVORY Primary Care Provider [phone] Encounter Details Date Type Department Care Team (Late st Contact Info) Description 05/01/2023 Orders Only [facility] [address] [place], [place] [phone] Melania Valerio LPN Social History Tobacco Use [...] Description 07/14/2025 11:30 AM EDT Office Visit [facility] [address] [place] [address] NameSamuel MD [address] [place] [address] documented as of this encounter Visit Diagnoses Not on filedocumented in this encounter Additional Health Concerns Assessment Noted Time PHQ-9 Depression Total Score: 0 12/23/19 23 8:58 AM EDT documented as of this encounter Care Teams Dance Therapist Relationship Specialty Start Date End Date Samuel Mccarthy MD [address] [place] [phone] PCP - General Family Medicine 04/17/18 05/07/24 Lorraine Handy NP [address] [place] [phone] PCP - General Family Medicine 05/08/24 06/17/24 NameSamuel MD [address] [place] [phone] PCP - General Internal Medicine 06/18/24 documented as of this encounter
--- OUTSIDE RECORDS SUMMARY | 2025-04-27 13:00 | XMS_ITS | Encounter Summary ---
Author Organization [employer] Address [address] [facility] 7t [place] [address] Care Team Providers Care Shell Machine Operator Name Role Phone Name, Samuel IVORY Primary Care Provider [phone] Encounter Details Date Type Department Care Team (Latest Contact Info) Description 04/27/2025 Travel Social History Tobacco Use Types Packs/Day [...] Description 07/14/2025 11:30 AM EDT Office Visit [facility] [address] [place] [address] Name, MD Samuel [address] [place] [address] documented as of this encounter Goals Goal [...] task Care Plan Weekly blood pressure task [place] M[place] MD Weekly blood pressure task Care Plan Weekly blood pressure task [place] M[place] MD Weekly blood pressure task Care Plan Weekly blood pressure task [place] M[place] MD Patient has chronic kidney disease Care Plan Patient has chronic kidney disease [place] M[place] MD Patient has chronic kidney disease Care Plan Patient has chronic kidney disease [place] M[place] MD Patient has chronic kidney disease Care Plan Patient has chronic kidney disease [place] M[place] MD Patient has diabetic neuropathy Care Plan Patient has diabetic neuropathy [place] M[place] MD Patient has diabetic neuropathy Care Plan Patient has diabetic neuropathy [place] M[place] MD Patient has diabetic neuropathy Care Plan Patient has diabetic neuropathy [place] M[place] MD documented as of this encounter [...] documented as of this encounter Care Teams Shell Machine Operator Relationship Specialty Start Date End Date Samuel Mccarthy MD [address] [place] [address] PCP - General Internal Medicine 06/18/24 documented as of this encounter
--- OUTSIDE RECORDS SUMMARY | 2025-04-27 13:00 | XMS_ITS | Encounter Summary ---
Author Organization [employer] Address [address] [facility] 7t [place] [address] Care Team Providers Care Dx Board Operator Name Role Phone Name, Samuel IVORY Primary Care Provider [phone] Encounter Details Date Type Department Care Team ([facility] st Contact Info) Description 11/19/2024 Telephone [facility] [address] [place], [place] [phone] Name, MD Samuel [address] [place] [address] Social History Tobacco Use Types Packs/Day Years [...] Description 07/14/2025 11:30 AM EDT Office Visit [facility] [address] [place] [phone] Name, MD Samuel [address] [place] [address] documented as of this encounter Visit Diagnoses Not on filedocumented in this encounter Additional Health Concerns Assessment Noted Time PHQ-9 Depression Total Score: 1 06/18/19 25 9:54 AM EST documented as of this encounter Care Teams Dx Board Operator Relationship Specialty Start Date End Date Name, MD Samuel [address] [place] [id number] PCP - General Internal Medicine 06/18/24 documented as of this encounter
[2025-04-27 13:48] LABS: MANUAL DIFF FLAG NO
[2025-04-27 14:00] LABS: Hematocrit 47.2 % (37.0-47.0); Hemoglobin 15.7 g/dl (12.0-16.0); Imm Gran Abs Auto 0.03 X10*3/uL (0.00-0.03); Imm Gran Pct Auto 0.4 % (0.0-0.4); Lymphocytes Absolute Auto 2.4 X10*3/uL (1.2-4.9); Mean Corpuscular HGB Conc 33.3 g/dl (31.0-35.0); Mean Corpuscular Hemoglobin 30.1 pg (27.0-33.0); Mean Corpuscular Volume 90.4 fL (80.0-98.0); NRBC Abs Auto 0.000 X10*3/uL (0.0-0.012); NRBC Pct Auto 0.0 /100WBC (0.0-0.2); Platelet Count 297 X10*3/uL (160-400); Red Blood Count 5.22 X10*6/uL (4.20-5.50); White Blood Count 8.3 X10*3/uL (4.8-10.8)
[2025-04-27 15:00] LABS: Alanine Aminotransferase 24 U/L (0-31); Albumin Level 5.0 g/dL (3.5-5.0); Alkaline Phosphatase 77 U/L (39-117); Anion Gap 12 (12-20); Aspartate Amino Transferase 27 U/L (5-31); Blood Urea Nitrogen 12 mg/dL (9-16); Calcium 9.8 mg/dL (8.4-10.2); Carbon Dioxide 25 mmol/L (22-29); Chloride 107 mmol/L (96-108); Estimated Glomerular Filt Rate > 60; Potassium 4.3 mmol/L (3.3-5.1); Sodium 140 mmol/L (135-145); Total Protein 8.1 g/dL (6.5-8.0)
== END 2025-04-27 11:08 ==
LOC: HO.HHCL 11:07
PROVIDERS: PCP Internal Medicine Geriatric Medicine; Visit Provider Internal Medicine Geriatric Medicine
DX: R42 Dizziness and giddiness (principal); R63.4 Abnormal weight loss; R63.0 Anorexia
CPT/HCPCS: 36415; 80053; 84443; 85025